=== PATIENT | female | born 1955 | race Caucasian/White ===

== ENCOUNTER → 2020-10-26 13:00 | Outpatient (REF) | payer MEDICARE, BC, SELFPAY ==
--- NOTE | 2020-10-26 13:00 | CA_ITS ---
Transthoracic Echocardiogram Patient (Last, First, Middle): Saadia Lee A Gender: Female Date of : 1955 Age: 65 Procedure Date: 10/26/2020 Procedure Type: Transthoracic Echocardiogram Location: OP Height: 157.48 cm Weight: 81.65 kg BSA: 1.83 m2 Heart Rate: bpm BP: 122 / 60 mmHg Receptionist: Referring MD: Jonathan Braun MD Symptoms: I35.0 AORTIC VALVE STENOSIS Study Quality: Fair ECG Rhythm: Sinus Conclusions: - The left ventricular systolic function is normal. The visually estimated ejection fraction is between 60-65%. - There is mild to moderate aortic valve stenosis. Findings Left Ventricle Normal left ventricular cavity size. There is mildly increased left ventricular wall thickness. The left ventricular systolic function is normal. The visually estimated ejection fraction is between 60-65%. There is no evidence of regional wall motion abnormalities. E/E prime ratio is between 8 and 15 consistent with indeterminate filling pressures. Evidence suggests grade I (mild) diastolic dysfunction. Right Ventricle Normal right ventricular cavity size and systolic function. Atria Both atria are normal in size. Aortic Valve There is mild calcification of the aortic valve. There is mild to moderate aortic valve stenosis. The peak aortic velocity is 2.66 m/s with a calculated peak gradient of 28 mmHg. The mean gradient is 17 mmHg. The aortic valve area is 1.16 cm2. There is no aortic valve regurgitation. Dimensionless index 0.47. Mitral Valve The mitral valve appears normal. There is trace mitral valve regurgitation. There is no mitral valve stenosis. Pulmonic Valve The pulmonic valve was not well visualized. Tricuspid Valve Normal tricuspid valve structure. There is trace tricuspid valve regurgitation. The pulmonary artery systolic pressure is normal. Great Vessels The aortic annulus, sinuses of valsalva, and asc aorta are normal in size. Venous The inferior vena cava is normal in size. Pericardium/Pleural There is no evidence of pericardial effusion. Prior Study Comparison No significant change compared to prior study dated: 11/13/2019. Measurements 2D Linear Measurements IVSd: 1.22 0.6-0.9/0.6-1.0 cm LVIDd: 2.93 3.9-5.3/4.2-5.9 cm LVIDd Index: 1.60 2.4-3.2/2.2-3.1 cm/m2 LVIDs: 2.07 2.0-3.6 cm LVPWd: 1.23 0.7-1.1 cm Ao Root: 2.90 2.1-3.5 cm LA Diam: 3.40 2.7-3.8/3.0-4.0 cm LAIDs Index: 1.86 1.5-2.3 cm/m2 LV Mass: 135.79 67-162/88-224 g LV Mass Index: 74.20 43-95/49-115 g/m2 LVOT Diam: 1.90 3.0+(-)1.3 cm 2D Systolic Function EF 4C: 70.90 >55% EF 2C: 70.30 >55% EF BiP: 69.50 >55% Mitral Valve MV Pk E: 0.87 MV PK A: 0.78 MV Decel Time: 225.00 E/A: 1.10 E'Lateral: 9.77 E'Medial: 6.29 E/E' Med: 13.90 E/E' Lat: 8.90 PHT: 66.00 MVA PHT: 3.33 Decel Blaine: 3.87 Aortic Valve AoV Pk Dangelo: 2.66 AoV Mn Dangelo: 1.89 AoV VTI: 0.63 AoV Pk Grad: 28.00 Aov Mn Grad: 17.00 SAHIL Cont.VTI: 1.16 LVOT LVOT Pk Dangelo: 1.24 LVOT Mn Dangelo: 0.85 LVOT VTI: 0.26 LVOT Pk Grad: 6.00 LVOT Mn Grad: 3.00 LVOT Diam: 1.90 LVOT Area: 2.84 Diastolic Function MV Pk E: 0.87 MV Pk A: 0.78 E/A: 1.10 E'Medial: 6.29 E/E' Med: 13.90 E' Laterial: 9.77 E/E' Lat: 8.90 Tricuspid Valve TR Pk Dangelo: 2.22 TR Pk Grad: 20.00 RA Press: 3.00 RVSP: 23.00 Great Vessels Aorta Ao Root-2D: 2.90 2.0-3.7 cm Pulmonary Valve PV Pk Dangelo: 1.33 Peak PV Grad: 7.00 Updated in Other Vendor System with Status of Final Rudy Griggs MD electronically signed on 10/26/2020 5:32:03 PM with status of Final
== END ==
LOC: HO.CARD 13:00
PROVIDERS: PCP Internal Medicine; Visit Provider Internal Medicine Cardiovascular Disease
DX: I35.0 Nonrheumatic aortic (valve) stenosis (principal)
CPT/HCPCS: 93306

== ENCOUNTER → 2020-11-09 14:44 | Outpatient (BNVA) | payer MEDICARE, BC, SELFPAY | PROVIDERS: PCP Internal Medicine; Visit Provider Internal Medicine Cardiovascular Disease | DX: I35.0 Nonrheumatic aortic (valve) stenosis (principal); I10 Essential (primary) hypertension | CPT/HCPCS: 93005; 99212 ==

== ENCOUNTER 2020-11-23 12:20 | Outpatient (REF) | payer MEDICARE, BC, SELFPAY ==
--- NOTE | 2020-11-23 12:25 | MM_ITS ---
EXAMINATION: MM SCREENING DIGITAL BREAST TOMOSYNTHESIS, BILATERAL CLINICAL INFORMATION: Screening. Asymptomatic. The lifetime risk of breast cancer based on the Tyrer-Cuzick Model is 10.9%. The lifetime risk of breast cancer based on the Jyoti Score Model is 19.9%. Additional annual screening with breast MRI may be of benefit in women with a Jyoti Score of 20% or greater. COMPARISON: Mammography: 11/18/2019 and studies dating back to 12/03/2009 TECHNIQUE: Digital breast tomosynthesis is performed in both the craniocaudal and mediolateral oblique views along with computer-aided detection (CAD). Synthesized 2D images are generated from the tomosynthesis. FINDINGS: There are scattered areas of fibroglandular density (ACR BI-RADS breast composition Category b). There is a stable parenchymal pattern seen within the left breast with no new abnormal dominant mass or suspicious grouping of microcalcifications. Within the superior aspect of the right breast on mediolateral oblique projection only, there is a question of developing density with a few calcifications which may represent superimposition of fibroglandular tissue. Recommend spot magnification compression view. MM/MM tomosynthesis screening BI IMPRESSION: Question of developing density superior aspect of the right breast. ASSESSMENT: BI-RADS 0: Incomplete - Need Additional Imaging Evaluation. RECOMMENDATION: 1. Additional views of the right breast. 2. Targeted ultrasound if warranted after review of the additional views. 3. Radiology department staff will contact the patient for additional imaging.
== END 2020-11-23 12:21 | disposition home or self-care (01) ==
LOC: HO.MAMMO 12:20
PROVIDERS: PCP Internal Medicine; Visit Provider Internal Medicine
DX: Z12.31 Encounter for screening mammogram for malignant neoplasm of breast (principal)
CPT/HCPCS: 77063; 77067

== ENCOUNTER 2020-12-08 07:32 | Outpatient (REF) | payer MEDICARE, BC, SELFPAY ==
--- NOTE | ~2020-12-08 | MM_ITS ---
EXAMINATION: MM DIAGNOSTIC DIGITAL MAMMOGRAPHY, RIGHT CLINICAL INFORMATION: Recall from screening for question of density upper right breast with superimposed calcifications. COMPARISON: Mammography: 11/23/2020, 11/18/2019 11/12/2018, 11/02/2017 TECHNIQUE: Digital mammography is performed in the following views: Magnification right ML. FINDINGS: There are scattered areas of fibroglandular density (ACR BI-RADS breast composition Category b). The additional view shows no developing density or mass or architectural abnormality. No grouped calcifications in area of concern. Parenchymal pattern is similar to prior exams. Results are discussed with the patient at time of visit. MM/MM added views RT IMPRESSION: Additional views demonstrate parenchymal pattern similar to prior studies. No developing density or abnormal calcifications in area of concern. ASSESSMENT: BI-RADS 1: Negative RECOMMENDATION: Routine annual mammography screening. This patient's information was entered into a reminder system with a target due date for their next mammogram.
== END 2020-12-08 07:33 | disposition home or self-care (01) ==
LOC: HO.MAMMO 07:32
PROVIDERS: PCP Internal Medicine; Visit Provider Internal Medicine
DX: R92.8 Other abnormal and inconclusive findings on diagnostic imaging of breast (principal)
CPT/HCPCS: 77065

== ENCOUNTER 2021-08-31 09:38 | Outpatient (REF) | payer MEDICARE, BC, SELFPAY ==
[2021-08-31 11:39] LABS: Appearance Urine HAZY; Color Urine DK YELLOW; Glucose Urine UA NEG (NEG); Leukocyte Esterase Urine TRACE (NEG); Nitrite Urine NEG (NEG); Specific Gravity - Urine 1.015 (1.005-1.025); Urine Blood NEG (NEG); Urine Ketones NEG (NEG); Urine Protein 1+ MG/DL (NEG-TRACE)
[2021-08-31 11:48] LABS: MANUAL DIFF FLAG NO
[2021-08-31 12:02] LABS: Basophils Absolute Auto 0.1 X10*3/uL (0.0-0.2); Eosinophils Absolute Auto 0.1 X10*3/uL (0.0-0.4); Eosinophils Percent Auto 1.8 % (0-4); Hematocrit 43.3 % (37.0-47.0); Hemoglobin 14.2 g/dl (12.0-16.0); Imm Gran Abs Auto 0.02 X10*3/uL (0.00-0.03); Imm Gran Pct Auto 0.3 % (0.0-0.4); Lymphocytes Absolute Auto 2.9 X10*3/uL (1.2-4.9); Lymphocytes Percent Auto 42.4 % (20-40); Mean Corpuscular HGB Conc 32.8 g/dl (31.0-35.0); Mean Corpuscular Hemoglobin 30.1 pg (27.0-33.0); Mean Corpuscular Volume 91.7 fL (80.0-98.0); Mean Platelet Volume 10.1 fL (9.4-12.3); Monocytes Absolute Auto 0.6 X10*3/uL (0.1-1.2); Neutrophils Absolute Auto 3.1 x10*3/uL (2.0-8.3); Neutrophils Percent Auto 45.5 % (45-73); Platelet Count 261 X10*3/uL (160-400); Red Blood Count 4.72 X10*6/uL (4.20-5.50); Red Cell Distribution Width 12.6 % (11.0-16.0); White Blood Count 6.8 X10*3/uL (4.8-10.8)
[2021-08-31 12:10] LABS: Mucus Urine 1+ /LPF; RBC Urine 0 /HPF (0); Squamous Epithelial Cell Urine 2+ /LPF
[2021-08-31 12:33] LABS: Alanine Aminotransferase 44 U/L (0-31); Albumin Level 4.3 g/dL (3.5-5.0); Alkaline Phosphatase 70 U/L (39-117); Anion Gap 14 (12-20); Aspartate Amino Transferase 43 U/L (5-31); Bilirubin Total 0.8 mg/dL (0.0-1.0); Blood Urea Nitrogen 10 mg/dL (9-16); Calcium 9.5 mg/dL (8.4-10.2); Carbon Dioxide 25 mmol/L (22-29); Chloride 106 mmol/L (96-108); Cholesterol 278 mg/dL; Estimated Glomerular Filt Rate > 60; Glucose Fasting 133 mg/dL (60-99); HDL Cholesterol 62 mg/dL; LDL Cholesterol Calculated 172 mg/dl; Potassium 4.6 mmol/L (3.3-5.1); Sodium 140 mmol/L (135-145); Triglycerides 224 mg/dL
== END 2021-08-31 09:39 | disposition home or self-care (01) ==
LOC: HO.HMGCLDS 09:38
PROVIDERS: PCP Internal Medicine; Visit Provider Internal Medicine
DX: Z00.00 Encounter for general adult medical examination without abnormal findings (principal); I35.0 Nonrheumatic aortic (valve) stenosis; Z78.0 Asymptomatic menopausal state
CPT/HCPCS: 36415; 80053; 80061; 81001; 84443; 85025

== ENCOUNTER 2021-09-15 13:08 | Outpatient (REF) | payer MEDICARE, BC, SELFPAY ==
--- NOTE | ~2021-09-15 | MM_ITS ---
EXAMINATION: BONE DENSITOMETRY CLINICAL INDICATION: Menopause. COMPARISON: Previous BD dated 08/16/2013 and baseline BD dated 06/18/2009. TECHNIQUE: Using a [employer] DXA System (software version: 13.1) manufactured by [employer], dual-energy x-ray absorptiometry was performed of the lumbar spine and left hip. The images are of good technical quality. Summary results are attached. FINDINGS: AP SPINE L1-L4: Current: BMD 1.128 g/cm2, Z-score 0.7, T-score -0.4, normal, 0.8% decrease from previous, 6.1% decrease from baseline (<5% change is not significant). Prior: BMD 1.137 g/cm2. Baseline: BMD 1.201 g/cm2. LEFT FEMUR, NECK: Current: BMD 0.844 g/cm2, Z-score -0.1, T-score -1.4, osteopenia. Prior: BMD 0.915 g/cm2. Baseline: BMD 0.970 g/cm2. LEFT FEMUR, TOTAL: Current: BMD 0.917 g/cm2, Z-score 0.3, T-score -0.7, normal, 7.5% decrease from previous, 12.0% decrease from baseline (<5% change is not significant). Prior: BMD 0.991 g/cm2. Baseline: BMD 1.042 g/cm2. IDENTIFIED RISK FACTORS: Menopause, Thiazide. HISTORY OF FRACTURE: None listed. MEDICATIONS: Calcium, vitamin D. MM/XR DEXA axial skeleton IMPRESSION: 1. DIAGNOSIS: Osteopenia based on the lowest T-score value of -1.4 in the femoral neck applying World Health Organization criteria. 2. 10-YEAR FRACTURE RISK PREDICTION, FRAX: Major osteoporotic fracture (clinical spine, forearm, hip or shoulder) 8.9%. Hip fracture 1.0%. 3. Treatment Recommendations: NOF guidelines recommend consideration for treatment in postmenopausal women and men age 50 and older presenting with the following: -A hip or vertebral (clinical or morphometric) fracture. -T-score less than or equal to -2.5 at the femoral neck or spine after appropriate evaluation to exclude secondary causes. -Low bone mass at the hip or spine and a 10-year fracture probability by FRAX of greater than or equal to 3% for hip fracture or greater than or equal to 20% for major osteoporotic fracture based on the [place] adapted WHO algorithm. 4. Other Recommendations: All treatment decisions require clinical judgment and consideration of individual patient factors, including patient preferences, comorbidities, previous drug use, risk factors not captured in the FRAX model (e.g. frailty, falls, vitamin D deficiency, increased bone turnover, interval significant decline in bone density) and possible under or overestimation of fracture risk by FRAX. Additional medical evaluation for secondary cause of low bone mineral density may be appropriate. FUTURE SCAN RECOMMENDATION: People with diagnosed cases of osteoporosis or at high risk for fracture should have regular bone mineral density tests. For patients eligible for Medicare, routine testing is allowed once every 2 years. The testing frequency can be increased to one year for patients who have rapidly progressing disease, those who are receiving or discontinuing medical therapy to restore bone mass, or have additional risk factors.
== END 2021-09-15 13:09 | disposition home or self-care (01) ==
LOC: HO.MAMMO 13:08
PROVIDERS: PCP Internal Medicine; Visit Provider Internal Medicine
DX: Z13.820 Encounter for screening for osteoporosis (principal); M85.80 Other specified disorders of bone density and structure, unspecified site; Z78.0 Asymptomatic menopausal state; Z79.899 Other long term (current) drug therapy
CPT/HCPCS: 77080

== ENCOUNTER → 2021-11-29 14:12 | Outpatient (BNVA) | payer MEDICARE, BC, SELFPAY | PROVIDERS: PCP Internal Medicine; Referring Provider Internal Medicine; Visit Provider Internal Medicine Cardiovascular Disease | DX: I35.0 Nonrheumatic aortic (valve) stenosis (principal); I10 Essential (primary) hypertension | CPT/HCPCS: 93005; 99212 ==

== ENCOUNTER 2021-12-09 12:50 | Outpatient (REF) | payer MEDICARE, BC, SELFPAY ==
--- NOTE | ~2021-12-09 | MM_ITS ---
EXAMINATION: MM SCREENING DIGITAL BREAST TOMOSYNTHESIS, BILATERAL CLINICAL INFORMATION: Screening. Asymptomatic. Family history breast cancer. The lifetime risk of breast cancer based on the Tyrer-Cuzick Model is 8%. COMPARISON: Mammography: 12/08/2020, 11/23/2020, 11/18/2019, 11/12/2018 TECHNIQUE: Digital breast tomosynthesis is performed in both the craniocaudal and mediolateral oblique views along with computer-aided detection (CAD). Synthesized 2D images are generated from the tomosynthesis. FINDINGS: There are scattered areas of fibroglandular density (ACR BI-RADS breast composition Category b). There is a fibronodular parenchymal pattern similar to prior studies. There is no significant mass or architectural abnormality or developing density. Again, there are scattered bilateral vascular and benign round calcifications in each breast. The bilateral axilla and skin contours are unremarkable. The left breast has punctate tightly grouped calcifications posterior 1:00 position which may be early vascular along with superimposed digital processing artifact. Patient will be recalled for additional imaging with magnification views. MM/MM tomosynthesis screening BI IMPRESSION: 1. Left: Tightly grouped punctate calcifications posterior 1:00 position, possibly early vascular along with superimposed digital processing artifact. 2. Right: No mammographic evidence of malignancy. ASSESSMENT: BI-RADS 0: Incomplete - Need Additional Imaging Evaluation RECOMMENDATION: 1. Additional views of the left breast (magnification CC, magnification ML). 2. Radiology department staff will contact the patient for additional imaging. This patient's information was entered into a reminder system with a target due date for their next mammogram.
== END 2021-12-09 12:51 | disposition home or self-care (01) ==
LOC: HO.MAMMO 12:50
PROVIDERS: PCP Internal Medicine; Visit Provider Internal Medicine
DX: Z12.31 Encounter for screening mammogram for malignant neoplasm of breast (principal)
CPT/HCPCS: 77063; 77067

== ENCOUNTER 2022-02-08 14:45 | Outpatient (REF) | payer MEDICARE, BC, SELFPAY ==
--- NOTE | ~2022-02-08 | MM_ITS ---
EXAMINATION: MM DIAGNOSTIC DIGITAL MAMMOGRAPHY, LEFT CLINICAL INFORMATION: Recall from screening for tightly grouped punctate calcifications posterior 1:00 left breast. Family history breast cancer, mother and sister(s). COMPARISON: Mammography: 12/09/2021, 11/23/2020, 11/18/2019 TECHNIQUE: Digital mammography is performed in the following views: Magnification CC, magnification ML. FINDINGS: There are scattered areas of fibroglandular density (ACR BI-RADS breast composition Category b). The magnification views confirm tightly grouped punctate calcifications in area of recall, over 10 in number. The calcifications vary in size and slightly vary in attenuation. This represents change from prior exams. Stereotactic sampling is recommended. Results are discussed with the patient at time of visit. [facility]igator to call PCP. MM/MM added views LT IMPRESSION: Grouped punctate calcifications posterior 1:00 position which vary in size and attenuation. ASSESSMENT: BI-RADS 4: Suspicious RECOMMENDATION: Stereotactic sampling left breast calcifications. This patient's information was entered into a reminder system with a target due date for their next mammogram.
== END 2022-02-08 14:46 | disposition home or self-care (01) ==
LOC: HO.MAMMO 14:45
PROVIDERS: Visit Provider Internal Medicine
DX: R92.1 Mammographic calcification found on diagnostic imaging of breast (principal)
CPT/HCPCS: 77065

== ENCOUNTER → 2022-02-10 13:05 | Outpatient (BNVA) | payer MEDICARE, BC, SELFPAY | PROVIDERS: PCP Internal Medicine; Referring Provider Internal Medicine; Visit Provider Surgery | DX: R92.8 Other abnormal and inconclusive findings on diagnostic imaging of breast (principal) | CPT/HCPCS: 99202 ==

== ENCOUNTER 2022-02-11 07:58 | Outpatient (REF) | payer MEDICARE, BC, SELFPAY ==
--- NOTE | ~2022-02-11 | MM_ITS ---
EXAMINATION: STEREOTACTIC TOMOSYNTHESIS-GUIDED VACUUM-ASSISTED BREAST BIOPSY, LEFT SPECIMEN RADIOGRAPH, LEFT POST PROCEDURE DIGITAL MAMMOGRAM, LEFT CLINICAL INFORMATION: Indeterminate calcifications about the upper outer aspect of the left breast.. COMPARISON: February 08, 2022 and studies dating back to October 18, 2016. TECHNIQUE/PROCEDURE: Informed consent was obtained from the patient after discussion of the benefits, risks, and alternatives to biopsy today. Patient appeared to understand. Gave opportunity for questions. Patient signed consent form. BIOPSY TABLE: [employer] Affirm Prone Biopsy System. LESION: Calcifications. LOCAL ANESTHESIA: 9 mL 1% lidocaine; 20 mL 1% lidocaine with epinephrine. DERMATOTOMY: Single skin mikala dermatotomy performed. NEEDLE: COADE Eviva 9-gauge vacuum assisted core biopsy device. APPROACH: craniocaudal. TARGETING: Combination of digital breast tomosynthesis and stereotactic digital mammography used for targeting. CORES: 20. CLIP: Hourglass. SPECIMEN RADIOGRAPH: Specimen radiograph is taken in separate room using digital mammography. The index calcifications are in the excised cores. POST PROCEDURE UNILATERAL DIGITAL MAMMOGRAM: The post biopsy mammogram is performed in separate room using separate digital mammography equipment from the biopsy procedure. 2 views are obtained. There are scattered areas of fibroglandular density (breast composition category: b). The clip marker is in position. The calcifications are markedly decreased at the biopsy site. No gross hematoma. The patient tolerated the procedure well. No immediate complications. Home instructions reviewed with the patient. Final pathology results are pending. MM/MM stereotactic biopsy LT IMPRESSION: 1. Digital tomosynthesis-guided core biopsy left breast with clip placement. 2. Specimen radiograph taken and post procedure mammogram. There is satisfactory positioning of the biopsy clip. 3. Final pathology results pending. An addendum report will be issued.
[2022-02-11] MEDS: Lidocaine HCl 1 % 20 ML VIAL 9 ML SUBCUT (09:39)
[2022-02-11] MEDS: Sodium Bicarbonate 8.4% 50 MEQ/50 ML VIAL SUBCUT (09:43)
== END 2022-02-11 07:59 | disposition home or self-care (01) ==
LOC: HO.MAMMO 07:58
PROVIDERS: Visit Provider Surgery
DX: R92.8 Other abnormal and inconclusive findings on diagnostic imaging of breast (principal)
CPT/HCPCS: 19081; 88305; A4648

== ENCOUNTER → 2022-02-15 11:09 | Outpatient (BNVA) | payer MEDICARE, BC, SELFPAY | PROVIDERS: PCP Internal Medicine; Referring Provider Internal Medicine; Visit Provider Surgery | DX: N60.92 Unspecified benign mammary dysplasia of left breast (principal); Z98.890 Other specified postprocedural states | CPT/HCPCS: 99212 ==

== ENCOUNTER 2022-03-02 06:48 | Day surgery (SDC) | payer MEDICARE, BC, SELFPAY ==
[2022-02-24 16:05] VITALS: BMI 32.1
--- NOTE | 2022-03-01 11:01 | HO.ANESPROP2 ---
Documented by User: Radha Butt NP 03/01/22 11:05 HPI - Anesthesia Eval Consult details Narrative: 66yo F for Left Breast Lumpectomy/Needle Loc Routine cardiology visit 11/2021 - pt active without symptoms of or PFO, stable for yearly f/u PMFSH Active Problems Active Problems: All Active Problems (Updated 02/24/22 @ 16:03 by Marsha Michaud, RN) Aortic stenosis (Acute) Hypertension (Acute) Abnormal mammogram of left breast (Acute) Atypical lobular hyperplasia of left breast (Acute) Hyperglycemia (Acute) Hyperlipidemia (Acute) Chronic back pain (Acute) Postmenopausal (Acute) Annual physical exam (Acute) Past Medical History Medical History Annual physical exam Aortic stenosis Chronic back pain Hyperglycemia Hyperlipidemia Hypertension Murmur Postmenopausal Situational anxiety Family History Family History Mother CVD (cardiovascular disease) Breast cancer, Onset Age: 60 Father Parkinson disease Brother Prostate cancer Sister Breast cancer, Onset Age: 50 Surgical History Surgical History H/O colonoscopy History of back surgery Hx of repair of rotator cuff Hx of tonsillectomy Social History Social History Are you a primary director of critical care to a significant other at home: No Do you presently have visiting nurse or other home services: No Alcohol intake: never Patient Tobacco Use Status: Never used Tobacco Use of substances other than those prescribed or required for medical reasons: No Have you been hit, kicked, punched, or otherwise hurt by someone within the past year? If so, by whom?: No Are you DNR?: No Advance Directives: No Advance Directives Information Provided: Yes Advance Directives on File: No Recently lost weight without trying: No Meds Allergies Allergy/AdvReac Type Severity Reaction Status Date / Time adhesive tape Allergy Intermediate Rash Verified 02/24/22 16:05 paper tape Allergy Intermediate Blister Uncoded 02/24/22 16:05 Home Medications Medication Instructions Recorded Confirmed Last Taken Type aspirin 81 mg tablet,delayed 81 mg PO DAILY 11/09/20 03/02/22 02/23/22 History release (Adult Low Dose Aspirin) multivitamin 1 tab PO DAILY 11/09/20 02/24/22 Unknown History Exam Exam Date and Time: March 01, 2022 1101 Height,Weight and Vital Signs: Height 5 ft 2 in Weight 79.832 kg Pertinent Lab Results Pertinent Lab Results: Laboratory Tests 08/31/21 08/31/21 09:57 09:57 WBC 6.8 Hgb 14.2 Hct 43.3 Plt Count 261 Sodium 140 Potassium 4.6 Chloride 106 Carbon Dioxide 25 BUN 10 Creatinine 0.72 Narrative Narrative: EKG 11/2021 NSR, normal EKG, QTc 429 msec ECHO 08/2021 Conclusions: - The left ventricular systolic function is normal.? The visually estimated ejection fraction is between 60-65%. ? - There is mild to moderate aortic valve stenosis. ?? Assessment and Plan Assessment Anesthesia Assessment: Chart Reviewed Documented by User: Adelaide Manzo MD 03/02/22 10:38 [facility] Active Problems Active Problems: All Active Problems (Updated 02/24/22 @ 16:03 by Marsha Michaud, KAT) Aortic stenosis (Acute)- asymptomatic Hypertension (Acute) Abnormal mammogram of left breast (Acute) Atypical lobular hyperplasia of left breast (Acute) Hyperglycemia (Acute) Hyperlipidemia (Acute) Chronic back pain (Acute) Postmenopausal (Acute) Annual physical exam (Acute) Past Medical History Medical History Annual physical exam Aortic stenosis Chronic back pain Hyperglycemia Hyperlipidemia Hypertension Murmur Postmenopausal Situational anxiety Family History Family History Mother CVD (cardiovascular disease) Breast cancer, Onset Age: 60 Father Parkinson disease Brother Prostate cancer Sister Breast cancer, Onset Age: 50 Family history of problems with anesthesia: No Surgical History Surgical History H/O colonoscopy History of back surgery Hx of repair of rotator cuff Hx of tonsillectomy History of Problems with Anesthesia: No Social History Social History Are you a primary director of critical care to a significant other at home: No Do you presently have visiting nurse or other home services: No Alcohol intake: never Patient Tobacco Use Status: Never used Tobacco Use of substances other than those prescribed or required for medical reasons: No Have you been hit, kicked, punched, or otherwise hurt by someone within the past year? If so, by whom?: No Are you DNR?: No Advance Directives: No Advance Directives Information Provided: Yes Advance Directives on File: No Recently lost weight without trying: No Meds Allergies Allergy/AdvReac Type Severity Reaction Status Date / Time adhesive tape Allergy Intermediate Rash Verified 02/24/22 16:05 paper tape Allergy Intermediate Blister Uncoded 02/24/22 16:05 Home Medications Medication Instructions Recorded Confirmed Last Taken Type aspirin 81 mg tablet,delayed 81 mg PO DAILY 11/09/20 03/02/22 02/23/22 History release (Adult Low Dose Aspirin) multivitamin 1 tab PO DAILY 11/09/20 02/24/22 Unknown History Exam Height,Weight and Vital Signs: Height 5 ft 2 in Weight 79.832 kg Vital Signs Temp Pulse Resp BP Pulse Ox 03/02/22 07:40 98.3 F 63 18 176/74 H 98 Airway Mallampati Class: III TM Dist: >3cm Neck ROM: Full Denture: Upper Partial: Lower Heart: RRR + systolic murmur Lungs: CTAB Assessment and Plan Assessment Anesthesia Assessment: Anesthesia Plan Discussed Final Anesthetic Review Family History of Problems with Anesthesia: No History of Problems with Anesthesia: No NPO: Yes ASA Class: III Final Preanesthetic Review: No Changes in Pt Med Stat, Meds/Allgs Chart Reviewed, Consent Obtained/Reviewed and Anes Risks/Benef Reviewed Patient Risk: Intermediate Procedure Risk: Low Assessment/Block/Sedation in SS: Assess/Block/Sedation-SS Anesthetic Plan Anesthetic Plan: GA Disposition: Standard PACU
[2022-03-02] VITALS (11 sets, daily range): BP systolic 145–176; BP diastolic 60–80; PULSE 57–78; RESP 12–20; TEMP 36.2–36.8; O2SAT 97–100; BMI 32.1
--- NOTE | ~2022-03-02 | MM_ITS ---
EXAMINATION: MM MAMMOGRAM GUIDED NEEDLE LOCALIZATION BREAST, LEFT MM NEEDLE LOCALIZATION SPECIMEN FROM THE LEFT BREAST CLINICAL INFORMATION: Recent stereotactic biopsy for calcifications posterior upper left breast, atypical lobular hyperplasia. COMPARISON: Mammography 12/09/2021, 02/08/2022, 02/11/2022, stereotactic biopsy 02/11/2022. TECHNIQUE NEEDLE LOC: Proper informed consent is obtained from the patient after discussion of the procedure, potential risks and complications, and alternatives including declining the procedure today. Patient was given an opportunity for questions. The patient appeared to understand. The patient consented to the procedure and signed the consent form. GUIDANCE: Digital mammography. APPROACH: Cranio-caudal. TARGET: Biopsy cavity and biopsy clip marker posterior upper left breast. ANESTHESIA: Carbonated lidocaine 1%: 6 mL. LOCALIZATION MARKER: [place] [employer]. 7.5 cm. The skin is prepped and local anesthesia administered. The needle is positioned and position assessed with mammography. The wire is hooked into position. Wellington needle protector placed. The patient tolerated the procedure well and had no immediate complication. Procedure results discussed with Dr. Rubin prior to surgery. TECHNIQUE SPECIMEN RADIOGRAPH: Imaging of the excised specimen is performed using digital mammography in 1 view. FINDINGS SPECIMEN RADIOGRAPH: The specimen shows the distal needle and distal hookwire are delivered intact. The biopsy clip marker is identified in the specimen. Results were called to Dr. Dimas Rubin in the operating room at the time of imaging. MM/MM needle loc LT IMPRESSION: 1. Status post left breast needle localization with wire hooked into position. 2. Post operative specimen radiograph obtained.
--- NOTE | 2022-03-02 08:02 | PC.NURSE ---
to xray for needle loc
[2022-03-02] MEDS: Lactated Ringers 1,000 ML 100 ML IVCONT (08:07)
--- NOTE | 2022-03-02 08:33 | MHC.SHP ---
Pre-Procedural Eval Section A Date of Service: 03/02/22 The patient is an INPATIENT: No Changes since office visit: Yes Patient answered all questions; No Cold of Flu in the past 2 weeks, No New Medical Problems and No Changes in Medication The History & Physical has been completed within 30 days and I have reviewed it.: Yes Section B Chief Complaint: dysplasia left breast Allergies: Allergies Allergy/AdvReac Type Severity Reaction Status Date / Time adhesive tape Allergy Intermediate Rash Verified 02/24/22 16:05 paper tape Allergy Intermediate Blister Uncoded 02/24/22 16:05 Plan Diagnosis/Plan: Unchanged I have reviewed the history and physical and performed a pertinent physical examination on my patient. No changes have occurred unless specified.
[2022-03-02] MEDS: Lidocaine HCl 1 % 20 ML VIAL 8 ML SUBCUT (08:44)
[2022-03-02] MEDS: Sodium Bicarbonate 8.4% 50 MEQ/50 ML VIAL SUBCUT (08:45)
--- NOTE | 2022-03-02 10:28 | W.PM.OPN ---
Operative Note Operative Note Date of Service: 03/02/22 Narrative: Preoperative diagnosis: Atypical lobular hyperplasia left breast Postoperative diagnosis: Same Procedure: Left breast lumpectomy with needle localization Surgeon: Dimas Rubin MD Front Office Agent: Elana Estrada PA-C Anesthesia: General LMA Indications for procedure: 66-year-old female patient presenting with a recent area of calcification in the left breast at the upper outer quadrant status post radiologically guided core biopsy. Pathology revealed atypical lobular hyperplasia. She presents today for wider excision to assure complete removal. Operative findings: Localizing clip and wire found within the specimen. Gross pathology indicated a biopsy cavity within the specimen. Specimen: Left breast lumpectomy Estimated blood loss: 10 mL Complications: None Procedure details: Patient was brought to the OR placed in a supine position. After administering general anesthesia the patient's left breast was prepped with ChloraPrep and draped in a sterile fashion. A surgical time-out was called the consent confirmed. Patient received preoperative antibiotics and Venodyne boots were in place. Local anesthesia consisting of 0.25% Sensorcaine was infiltrated in the upper outer quadrant close to the tip of the needle. A incision was then created in a transverse fashion then carried down through subcutaneous tissue. Superior and inferior skin flaps were then created. Incision was continued down towards the tip of the needle. This was grasped with an Allis clamp and dissection continued both superiorly and inferiorly to the needle. She noted the needle was oriented from a medial to lateral anterior to posterior. As the tip of the needle was close to the axilla. Dissection was continued around the needle tip and posterior to the needle tip. Dissection was also continued below the skin to the more proximal portion of the needle. Needle was then cut with a wireless development manager and dissected up posterior to the needle. The specimen was then marked with a yes long suture at the lateral margin short suture in a superior margin and loop suture at the posterior margin. This was sent to Radiology for radiologic specimen x-ray. This confirmed the clip within the specimen. The pathologist then reviewed the specimen and confirmed a biopsy cavity within the specimen. After assuring adequate hemostasis with electrocautery and free ties of 3-0 Polysorb, the deep breast tissue was reapproximated using interrupted 3-0 Polysorb sutures. Superficial breast tissue and dermis were then reapproximated using interrupted 3-0 Polysorb sutures. Skin was closed using a running subcuticular 4-0 Polysorb suture. Steri-Strips, 2 x 2 gauze and Tegaderm were then applied. The patient tolerated the procedure well. Sponge, instrument, needle counts reported as correct. The patient was transferred to PACU in stable condition. The
[2022-03-02] MEDS: Acetaminophen 325 MG TABLET 650 MG PO (10:54)
[2022-03-02] MEDS: oxyCODONE HCl Immed Release 5 MG TABLET PO (10:55)
[2022-03-02] MEDS: fentaNYL citrate/PF 100 MCG/2 ML VIAL 25 MCG IVPUSH ×2 (10:55→11:01)
== END 2022-03-02 11:48 | disposition home or self-care (01) ==
PROVIDERS: PCP Internal Medicine; Visit Provider Surgery
PROC: (CPT 19301; principal; 2022-03-02 08:40)
DX: N60.92 Unspecified benign mammary dysplasia of left breast (principal); Z80.3 Family history of malignant neoplasm of breast; E78.00 Pure hypercholesterolemia, unspecified; E78.5 Hyperlipidemia, unspecified; R73.9 Hyperglycemia, unspecified; Z79.82 Long term (current) use of aspirin; Z79.899 Other long term (current) drug therapy; Z98.890 Other specified postprocedural states
CPT/HCPCS: 19301; 19281; 88307; 88329; 88342; A4648; J0690; J1100; J2250; J2370; J2405; J3010

== ENCOUNTER → 2022-03-10 09:43 | Outpatient (BNVA) | payer MEDICARE, BC, SELFPAY | PROVIDERS: PCP Internal Medicine; Referring Provider Internal Medicine; Visit Provider Surgery | DX: N60.92 Unspecified benign mammary dysplasia of left breast (principal) | CPT/HCPCS: 99212 ==

== ENCOUNTER → 2022-03-18 08:56 | Outpatient (BNVA) | payer MEDICARE, BC, SELFPAY | PROVIDERS: PCP Internal Medicine; Referring Provider Internal Medicine; Visit Provider Surgery | DX: Z48.3 Aftercare following surgery for neoplasm (principal); N60.92 Unspecified benign mammary dysplasia of left breast | CPT/HCPCS: 99212 ==

== ENCOUNTER → 2022-03-18 10:45 | Outpatient (BNV) | payer MEDICARE, BC, SELFPAY | PROVIDERS: PCP Internal Medicine; Referring Provider Surgery; Visit Provider Internal Medicine Medical Oncology | DX: N60.92 Unspecified benign mammary dysplasia of left breast (principal); M85.80 Other specified disorders of bone density and structure, unspecified site | CPT/HCPCS: 99204; 99213; 99214 ==

== ENCOUNTER → 2022-03-24 14:36 | Outpatient (BNVA) | payer MEDICARE, BC, SELFPAY | PROVIDERS: PCP Internal Medicine; Referring Provider Internal Medicine; Visit Provider Surgery | DX: Z48.89 Encounter for other specified surgical aftercare (principal); N60.92 Unspecified benign mammary dysplasia of left breast | CPT/HCPCS: 99212 ==

== ENCOUNTER 2022-03-28 09:39 | Day surgery (SDC) | payer MEDICARE, BC, SELFPAY ==
[2022-03-22 12:15] VITALS: BMI 32.1
--- NOTE | 2022-03-24 13:56 | P.CONAN_ITS ---
Documented by User: Radha Butt NP 03/24/22 13:58 HPI - Anesthesia Eval Consult details Narrative: 67yo F for Colonoscopy s/p breast lumpectomy 03/02/22 with GA-LMA 4 Routine cardiology visit 11/2021 - pt active without symptoms of or PFO, stable for yearly f/u [facility] Active Problems Active Problems: All Active Problems (Updated 03/18/22 @ 11:04 by Halley Brandt MD) Atypical ductal hyperplasia of left breast (Acute) Atypical lobular hyperplasia of left breast (Acute) Hyperglycemia (Acute) Hyperlipidemia (Acute) Chronic back pain (Acute) Postmenopausal (Acute) Annual physical exam (Acute) Past Medical History Medical History Annual physical exam Aortic stenosis Chronic back pain Hyperglycemia Hyperlipidemia Hypertension Murmur Postmenopausal Situational anxiety Family History Family History Mother CVD (cardiovascular disease) Breast cancer, Onset Age: 60 Father Parkinson disease Brother Prostate cancer Sister Breast cancer, Onset Age: 50 Family history of problems with anesthesia: No Surgical History Surgical History H/O colonoscopy History of back surgery Hx of repair of rotator cuff Hx of tonsillectomy S/P lumpectomy, left breast (03/02/22) History of Problems with Anesthesia: No Social History Social History Household Members: Spouse Housing: House Are you a primary care management associate to a significant other at home: No Do you presently have visiting nurse or other home services: No Alcohol intake: never Patient Tobacco Use Status: Never used Tobacco Are you DNR?: No Advance Directives: No Advance Directives Information Provided: Yes service: No Current occupational status: retired Meds Allergies Allergy/AdvReac Type Severity Reaction Status Date / Time adhesive tape Allergy Intermediate Rash Verified 03/24/22 15:07 paper tape Allergy Intermediate Blister Uncoded 03/24/22 15:07 Home Medications Medication Instructions Recorded Confirmed Last Taken Type aspirin 81 mg tablet,delayed 81 mg PO DAILY 11/09/20 03/25/22 02/23/22 History release (Adult Low Dose Aspirin) multivitamin 1 tab PO DAILY 11/09/20 03/25/22 Unknown History Exam Exam Date and Time: March 24, 2022 1356 Height,Weight and Vital Signs: Height 5 ft 2 in Weight 79.832 kg Pertinent Lab Results Pertinent Lab Results: Laboratory Tests 03/18/22 12:30 WBC 7.7 Hgb 14.0 Hct 42.3 Plt Count 262 Sodium 03/18/22 12:30 WBC Hgb Hct Plt Count Sodium 138 Potassium 4.6 Chloride 106 Carbon Dioxide 26 BUN 12 Creatinine 0.72 Assessment and Plan Assessment Anesthesia Assessment: Chart Reviewed Final Anesthetic Review Family History of Problems with Anesthesia: No History of Problems with Anesthesia: No Documented by User: Adelaide Manzo MD 03/28/22 12:22 [facility] Active Problems Active Problems: All Active Problems (Updated 03/18/22 @ 11:04 by Halley Brandt MD) Atypical ductal hyperplasia of left breast (Acute) Atypical lobular hyperplasia of left breast (Acute) Hyperglycemia (Acute). Not diagnosed with DM. No meds Hyperlipidemia (Acute) Chronic back pain (Acute) Postmenopausal (Acute) Annual physical exam (Acute) Patient on atenolol- cardiology note states for Hypertension. Patient not aware that she has hypertension(though BP high today). Thinks she has been on atenolol for h/o heart murmur Asymptomatic aortic stenosis, PFO. oicked up secodary heart murmur Past Medical History Medical History Annual physical exam Aortic stenosis Chronic back pain Hyperglycemia Hyperlipidemia Hypertension Murmur Postmenopausal Situational anxiety Family History Family History Mother CVD (cardiovascular disease) Breast cancer, Onset Age: 60 Father Parkinson disease Brother Prostate cancer Sister Breast cancer, Onset Age: 50 Surgical History Surgical History H/O colonoscopy History of back surgery Hx of repair of rotator cuff Hx of tonsillectomy S/P lumpectomy, left breast (03/02/22) Social History Social History Household Members: Spouse Housing: House Are you a primary care management associate to a significant other at home: No Do you presently have visiting nurse or other home services: No Alcohol intake: never Patient Tobacco Use Status: Never used Tobacco Are you DNR?: No Advance Directives: No Advance Directives Information Provided: Yes service: No Current occupational status: retired Meds Allergies Allergy/AdvReac Type Severity Reaction Status Date / Time adhesive tape Allergy Intermediate Rash Verified 03/24/22 15:07 paper tape Allergy Intermediate Blister Uncoded 03/24/22 15:07 Home Medications Medication Instructions Recorded Confirmed Last Taken Type aspirin 81 mg tablet,delayed 81 mg PO DAILY 11/09/20 03/25/22 02/23/22 History release (Adult Low Dose Aspirin) multivitamin 1 tab PO DAILY 11/09/20 03/25/22 Unknown History Exam Height,Weight and Vital Signs: Height 5 ft 2 in Weight 79.832 kg Vital Signs Temp Pulse Resp BP Pulse Ox 03/28/22 10:49 98.9 F 76 16 169/80 H 99 Airway Mallampati Class: III TM Dist: >3cm Neck ROM: Full Denture: Upper Loose/Missing/Broken Teeth: No (No missing or loose bottom) Heart: RRR Lungs: CTAB Assessment and Plan Assessment Anesthesia Assessment: Anesthesia Plan Discussed Final Anesthetic Review NPO: Yes ASA Class: II Final Preanesthetic Review: No Changes in Pt Med Stat, Meds/Allgs Chart Reviewed, Consent Obtained/Reviewed and Anes Risks/Benef Reviewed Patient Risk: Intermediate Procedure Risk: Low Assessment/Block/Sedation in SS: Assess/Block/Sedation-SS Anesthetic Plan Anesthetic Plan: MAC: Disposition: Standard PACU
[2022-03-28 10:49] VITALS: BP 169/80; PULSE 76; RESP 16; TEMP 37.2; O2SAT 99; BMI 32.1
[2022-03-28] MEDS: Lactated Ringers 1,000 ML 100 ML IVCONT (11:07)
[2022-03-28 12:46] VITALS: BP 137/75; PULSE 87; RESP 16; TEMP 37; O2SAT 100
--- NOTE | 2022-03-28 12:52 | PM.OP ---
Brief Operative Note Date of Service: 03/28/22 Pre-op diagnosis: Screening Post-op diagnosis: other (Colon polyp) Procedure: Colonoscopy to the cecum with hot snare polypectomy Surgeon: Yoseph Mendoza Anesthesia: MAC Was an Research Software Engineer used for this Procedure?: No Estimated blood loss (mL): 0 Pathology: other (A. Rectal polyp) Condition: stable Disposition: PACU
[2022-03-28 13:00] VITALS: BP 143/67; PULSE 70; RESP 14; TEMP 37.2; O2SAT 99
--- NOTE | 2022-03-28 23:22 | OP_ITS ---
SURGEON: Yoseph Mendoza MD INDICATIONS: The patient presents for evaluation of personal history of tubular adenoma of the colon and colorectal cancer screening. Full consent was obtained from her for this, including risks of bleeding and perforation. PREOPERATIVE DIAGNOSIS: POSTOPERATIVE DIAGNOSIS: PROCEDURE PERFORMED: Colonoscopy to the cecum with hot snare polypectomy. ESTIMATED BLOOD LOSS: COMPLICATIONS: ANESTHESIA: Monitored anesthesia care. ASSISTANTS: SPECIMENS: PREOPERATIVE DIAGNOSES: Colorectal cancer screening, family history of colon cancer, and personal history of tubular adenoma of the colon. POSTOPERATIVE DIAGNOSES: Colorectal cancer screening, family history of colon cancer, and personal history of tubular adenoma of the colon, colon polyp, diverticulosis and internal hemorrhoids. DESCRIPTION OF PROCEDURE: The patient was placed in the left lateral decubitus position. The digital rectal exam revealed no abnormalities. The Olympus video pediatric colonoscope was entered into the rectum and advanced to the cecum. Once in the cecum, I did identify normal-appearing cecal pouch with appendiceal orifice and a normal-appearing ileocecal valve. The entire cecum and ileocecal valve appeared normal. The scope was then slowly withdrawn assessing all mucosal surfaces carefully. Preparation was excellent. In the proximal rectum was approximately 12 mm polyp on a short stalk, which was snared and recovered by suction. The polypectomy site appeared clean, without any sign of residual polyp nor bleeding. I did not visualize any other polyps, colitis, nor angiodysplasia. There was a moderate amount of sigmoid diverticulosis. In the rectum, scope was retroflexed visualizing internal hemorrhoids, but no other pathology. The rectal mucosa appeared normal. The scope was straightened and withdrawn from the patient. She tolerated the procedure well and was returned to the recovery area in stable condition. IMPRESSION: 1. Rectal polyp, status post hot snare polypectomy. 2. Diverticulosis. 3. Internal hemorrhoids. PLAN: The results of the pathology will be checked. Given her family history of a sibling with colon cancer, her previous history of tubular adenoma, and today's findings, I would recommend a repeat colonoscopy in 5 years for further screening purposes. She was advised not to use any aspirin, NSAIDs, nor fish oil for 1 week. MD SUZAN HarrisW/JETL / [id number]
== END 2022-03-28 13:45 | disposition home or self-care (01) ==
PROVIDERS: PCP Internal Medicine; Visit Provider Internal Medicine
PROC: 0DJD8ZZ Inspection of Lower Intestinal Tract, Via Natural or Artificial Opening Endoscopic (ICD-10-PCS; CPT 45378; principal; 2022-03-28 10:50)
DX: Z12.11 Encounter for screening for malignant neoplasm of colon (principal); Z86.010 Personal history of colon polyps; Z80.0 Family history of malignant neoplasm of digestive organs; D12.8 Benign neoplasm of rectum; K57.30 Diverticulosis of large intestine without perforation or abscess without bleeding; K64.8 Other hemorrhoids; R01.1 Cardiac murmur, unspecified; Z79.82 Long term (current) use of aspirin; Z79.899 Other long term (current) drug therapy
CPT/HCPCS: 45385; 88305

== ENCOUNTER 2022-05-24 14:18 | Outpatient (REF) | payer MEDICARE, BC, SELFPAY ==
--- NOTE | ~2022-05-24 | US_ITS ---
EXAMINATION: US ABDOMEN COMPLETE CLINICAL INFORMATION: History of MUTYH mutation, breast cancer. COMPARISON: Ultrasound abdomen complete 07/11/2016. TECHNIQUE: Real-time imaging of the abdominal viscera. FINDINGS: PANCREAS: Normal. No abnormal mass or peripancreatic inflammatory changes seen. ABDOMINAL AORTA: The proximal, mid, and distal segments are normal in caliber. INFERIOR VENA CAVA: Visualized portions are normal. LIVER: The liver is normal in size. The liver contour is normal. There is diffusely increased echogenicity present consistent with fatty infiltration. There is no intrahepatic biliary duct dilatation seen. GALLBLADDER: Normal. The gallbladder is physiologically distended without evidence of stones, sludge, polyps, wall thickening or pericholecystic fluid. COMMON BILE DUCT: Normal in caliber measuring 0.4 cm in diameter. RIGHT KIDNEY: There is fullness of the upper collecting system with the appearance of mild hydronephrosis. No renal calculi or focal parenchymal lesions. The kidney measures 9.7 cm in maximum dimension. LEFT KIDNEY: There is minimal fullness of the upper collecting system. Within the lower pole there is noted to be a 4 mm nonobstructing calculus. No focal parenchymal lesions. The kidney measures 10.3 cm in maximum dimension. SPLEEN: Normal. The spleen measures 9.7 cm in maximum dimension. FREE FLUID: None. US/US abdomen complete IMPRESSION: Mild right hydronephrosis. Left renal nonobstructing calculus. Fatty infiltration of the liver.
== END 2022-05-24 14:19 | disposition home or self-care (01) ==
LOC: HO.HMGCX 14:18
PROVIDERS: PCP Internal Medicine; Visit Provider Internal Medicine Medical Oncology
DX: Z15.89 Genetic susceptibility to other disease (principal)
CPT/HCPCS: 76700

== ENCOUNTER 2022-08-18 09:53 | Outpatient (REF) | payer MEDICARE, BC, SELFPAY ==
[2022-08-18 11:33] LABS: Estimated Average Glucose 120 mg/dL; Hemoglobin A1c % 5.8 %
[2022-08-18 11:43] LABS: Cholesterol 266 mg/dL; HDL Cholesterol 58 mg/dL; LDL Cholesterol Calculated 168 mg/dl; Triglycerides 201 mg/dL
[2022-08-18 11:50] LABS: TSH reflex Free T4 0.93 uIU/mL (0.32-4.0)
== END 2022-08-18 09:54 | disposition home or self-care (01) ==
LOC: HO.HMGCLDS 09:53
PROVIDERS: PCP Internal Medicine; Visit Provider Internal Medicine
DX: Z00.00 Encounter for general adult medical examination without abnormal findings (principal); R73.9 Hyperglycemia, unspecified; E78.5 Hyperlipidemia, unspecified
CPT/HCPCS: 36415; 80061; 83036; 84443

== ENCOUNTER → 2022-10-07 10:07 | Outpatient (BNVA) | payer MEDICARE, BC, SELFPAY | PROVIDERS: PCP Internal Medicine; Visit Provider Surgery | DX: N60.92 Unspecified benign mammary dysplasia of left breast (principal) | CPT/HCPCS: 99212 ==

== ENCOUNTER 2022-11-02 09:39 | Outpatient (REF) | payer MEDICARE, BC, SELFPAY ==
[2022-11-02 12:25] LABS: Alanine Aminotransferase 36 U/L (0-31); Albumin Level 4.1 g/dL (3.5-5.0); Alkaline Phosphatase 69 U/L (39-117); Anion Gap 13 (12-20); Aspartate Amino Transferase 42 U/L (5-31); Bilirubin Total 0.6 mg/dL (0.0-1.0); Blood Urea Nitrogen 13 mg/dL (9-16); Calcium 9.8 mg/dL (8.4-10.2); Carbon Dioxide 27 mmol/L (22-29); Chloride 105 mmol/L (96-108); Cholesterol 195 mg/dL; Estimated Glomerular Filt Rate > 60; Glucose Fasting 127 mg/dL (60-99); HDL Cholesterol 53 mg/dL; LDL Cholesterol Calculated 103 mg/dl; Potassium 4.5 mmol/L (3.3-5.1); Sodium 140 mmol/L (135-145); Total Protein 6.9 g/dL (6.5-8.0); Triglycerides 197 mg/dL
== END 2022-11-02 09:40 | disposition home or self-care (01) ==
LOC: HO.HMGCLDS 09:39
PROVIDERS: PCP Internal Medicine; Visit Provider Internal Medicine
DX: Z00.00 Encounter for general adult medical examination without abnormal findings (principal); E78.5 Hyperlipidemia, unspecified; R73.9 Hyperglycemia, unspecified
CPT/HCPCS: 36415; 80053; 80061

== ENCOUNTER → 2022-11-24 12:26 | Outpatient (REF) | payer MEDICARE, BC, SELFPAY ==
--- NOTE | 2022-11-24 12:30 | CA_ITS ---
Transthoracic Echocardiogram Patient (Last, First, Middle): Saadia Lee A Gender: Female Date of : 1955 Age: 67 Procedure Date: 11/24/2022 Procedure Type: Transthoracic Echocardiogram Location: OP Height: 157.48 cm Weight: 81.19 kg BSA: 1.82 m2 Heart Rate: 60 bpm BP: 125 / 75 mmHg Hearing Impaired Itinerant Teacher: VIVIANE Faust MD: Jonathan Braun MD Functional Architect: Jonathan Braun MD Symptoms: I35.0 - Nonrheumatic aortic (valve) stenosis Study Quality: Fair ECG Rhythm: Sinus Conclusions: - Normal left ventricular size and systolic function. The visually estimated ejection fraction is between 55-60%. - Normal right ventricular cavity size and systolic function. - There is moderate aortic valve stenosis. The peak aortic velocity is 2.84 m/s. The mean gradient is 18 mmHg. The aortic valve area is 1.00 cm2. Findings Left Ventricle Normal left ventricular size and systolic function. The visually estimated ejection fraction is between 55-60%. Regional wall motion abnormalities can not be excluded due to suboptimal endocardial definition. Abnormal diastolic function is noted. Spectral Doppler is indicative of an impaired relaxation filling pattern. E/E prime ratio is between 8 and 15 consistent with indeterminate filling pressures. There is mild septal asymmetric hypertrophy. Right Ventricle Normal right ventricular cavity size and systolic function. Atria The left atrium was not well visualized. There is no evidence of interatrial shunt by color Doppler. The right atrium is normal in size. Aortic Valve There is a normal trileaflet aortic valve. There is mild calcification of the aortic valve. There is mild thickening of the aortic valve. There is moderate aortic valve stenosis. The peak aortic velocity is 2.84 m/s. The mean gradient is 18 mmHg. The aortic valve area is 1.00 cm2. There is no aortic valve regurgitation. Mitral Valve Likely normal mitral valve structure and function. There is no mitral valve regurgitation. There is no mitral valve stenosis. Pulmonic Valve The pulmonic valve is likely normal. Tricuspid Valve Normal tricuspid valve structure and function. There is trace tricuspid valve regurgitation. Normal right atrial pressure. There is no evidence of pulmonary hypertension. Great Vessels All visible segments of the aorta are normal in size. Venous The inferior vena cava is normal in size and collapses greater than 50% with inspiration. Pericardium/Pleural There is no evidence of pericardial effusion. Prior Study Comparison Changes noted compared to prior study dated: 10/26/2020. Moderate present. Measurements 2D Linear Measurements IVSd: 1.15 0.6-0.9/0.6-1.0 cm LVIDd: 3.96 3.9-5.3/4.2-5.9 cm LVIDd Index: 2.18 2.4-3.2/2.2-3.1 cm/m2 LVIDs: 2.28 2.0-3.6 cm LVPWd: 0.85 0.7-1.1 cm LA Diam: 3.00 2.7-3.8/3.0-4.0 cm LAIDs Index: 1.65 1.5-2.3 cm/m2 LV Mass: 155.70 67-162/88-224 g LV Mass Index: 85.55 43-95/49-115 g/m2 LVOT Diam: 1.80 3.0+(-)1.3 cm 2D Systolic Function EF 4C: 60.10 >55% EF 2C: 61.50 >55% EF BiP: 62.10 >55% Mitral Valve MV Pk E: 0.74 MV PK A: 0.80 MV Decel Time: 230.00 E/A: 0.90 E'Lateral: 7.40 E'Medial: 5.98 E/E' Med: 12.30 E/E' Lat: 10.00 PHT: 67.00 MVA PHT: 3.28 Decel [place]: 3.20 Aortic Valve AoV Pk Dangelo: 2.84 AoV Mn Dangelo: 1.87 AoV VTI: 0.64 AoV Pk Grad: 32.00 Aov Mn Grad: 18.00 SAHIL Cont.VTI: 1.00 LVOT LVOT Pk Dangelo: 1.10 LVOT Mn Dangelo: 0.76 LVOT VTI: 0.26 LVOT Pk Grad: 5.00 LVOT Mn Grad: 3.00 LVOT Diam: 1.80 LVOT Area: 2.27 Diastolic Function MV Pk E: 0.74 MV Pk A: 0.80 E/A: 0.90 E'Medial: 5.98 E/E' Med: 12.30 E' Laterial: 7.40 E/E' Lat: 10.00 Right Ventricle TAPSE (mm): 17.80 TVS' Dangelo: 9.46 Tricuspid Valve TR Pk Dangelo: 1.83 TR Pk Grad: 13.00 RA Press: 3.00 RVSP: 16.00 Great Vessels Aorta Sinus of Valsalva: 3.10 2.0-3.5 cm Ao Asc: 3.20 2.1-3.4 cm Pulmonary Valve PV Pk Dangelo: 0.88 Peak PV Grad: 3.00 Updated in Other Vendor System with Status of Final Jonathan Braun MD electronically signed on 11/26/2022 5:48:46 PM with status of Final
== END ==
LOC: HO.CARD 12:26
PROVIDERS: PCP Internal Medicine; Visit Provider Internal Medicine Cardiovascular Disease
DX: I35.0 Nonrheumatic aortic (valve) stenosis (principal)
CPT/HCPCS: 93306

== ENCOUNTER 2022-12-13 13:01 | Outpatient (REF) | payer MEDICARE, BC, SELFPAY ==
--- NOTE | ~2022-12-13 | MM_ITS ---
EXAMINATION: MM SCREENING DIGITAL BREAST TOMOSYNTHESIS, BILATERAL CLINICAL INFORMATION: Screening. Asymptomatic. The lifetime risk of breast cancer based on the Tyrer-Cuzick Model is 19.5%. COMPARISON: Mammography: March 02, 2022 and studies dating back to September 21, 2015 TECHNIQUE: Digital breast tomosynthesis is performed in both the craniocaudal and mediolateral oblique views along with computer-aided detection (CAD). Synthesized 2D images are generated from the tomosynthesis. Additional left exaggerated craniocaudal view performed. FINDINGS: There are scattered areas of fibroglandular density (ACR BI-RADS breast composition Category b). There are no new significant masses, abnormal calcifications, or other abnormalities. MM/MM tomosynthesis screening BI IMPRESSION: No significant changes from prior exam. ASSESSMENT: BI-RADS 1: Negative RECOMMENDATION: Routine annual mammography screening. This patient's information was entered into a reminder system with a target due date for their next mammogram.
== END 2022-12-13 13:02 | disposition home or self-care (01) ==
LOC: HO.MAMMO 13:01
PROVIDERS: PCP Internal Medicine; Visit Provider Internal Medicine
DX: Z12.31 Encounter for screening mammogram for malignant neoplasm of breast (principal)
CPT/HCPCS: 77063; 77067

== ENCOUNTER → 2023-02-14 13:57 | Outpatient (BNVA) | payer MEDICARE, BC, SELFPAY | PROVIDERS: PCP Internal Medicine; Referring Provider Internal Medicine; Visit Provider Nurse Practitioner Family | DX: I44.0 Atrioventricular block, first degree (principal); I35.0 Nonrheumatic aortic (valve) stenosis; I10 Essential (primary) hypertension; E78.5 Hyperlipidemia, unspecified | CPT/HCPCS: 93005; 99212 ==

== ENCOUNTER 2023-03-08 10:19 | Outpatient (REF) | payer MEDICARE, BC, SELFPAY ==
[2023-03-08 11:33] LABS: MANUAL DIFF FLAG NO
[2023-03-08 11:55] LABS: Basophils Absolute Auto 0.1 X10*3/uL (0.0-0.2); Basophils Percent Auto 0.9 % (0-2); Eosinophils Absolute Auto 0.2 X10*3/uL (0.0-0.4); Eosinophils Percent Auto 2.6 % (0-4); Hematocrit 42.4 % (37.0-47.0); Hemoglobin 13.8 g/dl (12.0-16.0); Imm Gran Abs Auto 0.01 X10*3/uL (0.00-0.03); Imm Gran Pct Auto 0.1 % (0.0-0.4); Lymphocytes Absolute Auto 3.7 X10*3/uL (1.2-4.9); Lymphocytes Percent Auto 48.6 % (20-40); Mean Corpuscular HGB Conc 32.5 g/dl (31.0-35.0); Mean Corpuscular Hemoglobin 30.3 pg (27.0-33.0); Mean Corpuscular Volume 93.2 fL (80.0-98.0); Mean Platelet Volume 10.2 fL (9.4-12.3); Monocytes Absolute Auto 0.6 X10*3/uL (0.1-1.2); Monocytes Percent Auto 7.7 % (2-11); Neutrophils Absolute Auto 3.1 x10*3/uL (2.0-8.3); Neutrophils Percent Auto 40.1 % (45-73); Platelet Count 252 X10*3/uL (160-400); Red Blood Count 4.55 X10*6/uL (4.20-5.50); White Blood Count 7.7 X10*3/uL (4.8-10.8)
[2023-03-08 12:17] LABS: Estimated Average Glucose 117 mg/dL; Hemoglobin A1c % 5.7 %
[2023-03-08 12:47] LABS: Alanine Aminotransferase 31 U/L (0-31); Albumin Level 4.1 g/dL (3.5-5.0); Alkaline Phosphatase 63 U/L (39-117); Anion Gap 12 (12-20); Aspartate Amino Transferase 42 U/L (5-31); Bilirubin Total 0.7 mg/dL (0.0-1.0); Blood Urea Nitrogen 12 mg/dL (9-16); Calcium 9.4 mg/dL (8.4-10.2); Carbon Dioxide 26 mmol/L (22-29); Chloride 108 mmol/L (96-108); Cholesterol 221 mg/dL; Estimated Glomerular Filt Rate > 60; Glucose Fasting 122 mg/dL (60-99); HDL Cholesterol 63 mg/dL; LDL Cholesterol Calculated 126 mg/dl; Potassium 4.4 mmol/L (3.3-5.1); Sodium 142 mmol/L (135-145); Total Protein 6.6 g/dL (6.5-8.0); Triglycerides 162 mg/dL
[2023-03-10 03:59] LABS: HBc Num1 0.07 S/CO (0.00-0.79); HBsAGNum1 0.31 S/CO (0.00-0.99); Hepatitis A Antibody IgM 0.38 Index (0-0.79); Hepatitis B Core Antibody Nonreactive (Nonreactive); Hepatitis B Surface Antigen Negative (Negative); ~HepC Num1 0.09 S/CO (0.00-0.79); ~Hepatitis A Antibody IgM Nonreactive (Nonreactive); ~Hepatitis B Surface Antibody NONREACTIVE (Nonreactive); ~Hepatitis C Antibody Nonreactive (Nonreactive)
== END 2023-03-08 10:20 | disposition home or self-care (01) ==
LOC: HO.HMGCLDS 10:19
PROVIDERS: PCP Internal Medicine; Visit Provider Internal Medicine
DX: I10 Essential (primary) hypertension (principal); R73.9 Hyperglycemia, unspecified; E78.5 Hyperlipidemia, unspecified
CPT/HCPCS: 36415; 80053; 80061; 83036; 85025; 86704; 86706; 86709; 86803; 87340

== ENCOUNTER → 2023-04-21 11:18 | Outpatient (BNVA) | payer MEDICARE, BC, SELFPAY | PROVIDERS: PCP Internal Medicine; Visit Provider Surgery | DX: N60.92 Unspecified benign mammary dysplasia of left breast (principal) | CPT/HCPCS: 99212 ==

== ENCOUNTER 2023-05-11 10:19 | Outpatient (REF) | payer MEDICARE, BC, SELFPAY ==
[2023-05-11 13:25] LABS: MANUAL DIFF FLAG NO
[2023-05-11 13:51] LABS: Basophils Absolute Auto 0.1 X10*3/uL (0.0-0.2); Basophils Percent Auto 0.8 % (0-2); Eosinophils Absolute Auto 0.6 X10*3/uL (0.0-0.4); Eosinophils Percent Auto 6.8 % (0-4); Hematocrit 42.8 % (37.0-47.0); Hemoglobin 13.7 g/dl (12.0-16.0); Imm Gran Abs Auto 0.01 X10*3/uL (0.00-0.03); Imm Gran Pct Auto 0.1 % (0.0-0.4); Lymphocytes Absolute Auto 3.6 X10*3/uL (1.2-4.9); Lymphocytes Percent Auto 42.5 % (20-40); Mean Corpuscular Hemoglobin 30.4 pg (27.0-33.0); Mean Corpuscular Volume 94.9 fL (80.0-98.0); Mean Platelet Volume 10.4 fL (9.4-12.3); Monocytes Absolute Auto 0.7 X10*3/uL (0.1-1.2); Monocytes Percent Auto 8.8 % (2-11); Neutrophils Absolute Auto 3.5 x10*3/uL (2.0-8.3); Platelet Count 236 X10*3/uL (160-400); Red Blood Count 4.51 X10*6/uL (4.20-5.50); Red Cell Distribution Width 12.8 % (11.0-16.0); White Blood Count 8.4 X10*3/uL (4.8-10.8)
[2023-05-11 14:32] LABS: Alanine Aminotransferase 48 U/L (0-31); Alkaline Phosphatase 58 U/L (39-117); Anion Gap 13 (12-20); Aspartate Amino Transferase 58 U/L (5-31); Bilirubin Total 0.4 mg/dL (0.0-1.0); Blood Urea Nitrogen 16 mg/dL (9-16); Calcium 9.4 mg/dL (8.4-10.2); Carbon Dioxide 24 mmol/L (22-29); Chloride 107 mmol/L (96-108); Cholesterol 141 mg/dL; Estimated Glomerular Filt Rate > 60; Glucose Fasting 127 mg/dL (60-99); HDL Cholesterol 50 mg/dL; LDL Cholesterol Calculated 70 mg/dl; Potassium 4.3 mmol/L (3.3-5.1); Sodium 140 mmol/L (135-145); Total Protein 6.7 g/dL (6.5-8.0); Triglycerides 106 mg/dL
[2023-05-11 14:50] LABS: Estimated Average Glucose 117 mg/dL; Hemoglobin A1c % 5.7 %
== END 2023-05-11 10:20 | disposition home or self-care (01) ==
LOC: HO.HMGCLDS 10:19
PROVIDERS: PCP Internal Medicine; Visit Provider Internal Medicine
DX: I10 Essential (primary) hypertension (principal); R73.9 Hyperglycemia, unspecified; E78.5 Hyperlipidemia, unspecified
CPT/HCPCS: 36415; 80053; 80061; 83036; 85025

== ENCOUNTER 2023-08-25 13:31 | Outpatient (AMB) | payer MEDICARE, BC, SELFPAY ==
--- NOTE | 2023-08-25 13:42 | MHC.PC.OV ---
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 Curran and wishes to address several concerns, including a heart murmur. Additionally, the patient has experienced wheezing, nighttime coughing, and phlegm production after zeenat COVID-19 while on vacation. 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 Accompanied by: Self / Same As Patient Allergies adhesive tape Allergy (Intermediate, Verified 08/25/23 14:02) Rash paper tape Allergy (Intermediate, Uncoded 08/25/23 14:02) Blister Medication List - Last Reconciled 08/25/23 by Sandra Wood MD aspirin (Adult Low Dose Aspirin) 81 mg PO DAILY atenolol 50 mg PO DAILY fluticasone propionate 50 mcg/actuation (Flonase Allergy Relief) 2 sprays intranasal DAILY multivitamin 1 tab PO DAILY raloxifene 60 mg PO DAILY rosuvastatin (Crestor) 10 mg PO DAILY trazodone 50 mg PO BEDTIME PRN Tobacco use date assessed: 03/17/23 Fall risk assessment: No Falls in past year Last assessed Fall Risk: 08/25/23 Dental Screening Dental Screen Date: 08/25/23 Did you have a dental visit in the last 12 months?: Yes Did you have a dental problem in the last 6 months where you did not have access to dental care?: No Was dental information given to patient?: Patient 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 Mammograms up-to-date bone density did show osteopenia and colonoscopy is up-to-date. Patient is being followed up by the surgeon regarding that typical ductal hyperplasia had left breast lumpectomy a patient has been placed on raloxifene February 2022. Patient had an echocardiogram done in November 2022 showing normal left ventricular size and systolic function a EF of 55-60% normal right ventricular cavity moderate aortic stenosis 1.00 cm. scheduled for cone density 08/2023. Cardiology follow-up [facility] Medical History (Updated 08/25/23 @ 14:50 by Sandra Wood MD) Abnormal mammogram of left breast Elevated LFTs Postmenopausal Atypical lobular hyperplasia of left breast Hyperglycemia Murmur Situational anxiety Hyperlipidemia Chronic back pain Postmenopausal Annual physical exam Hypertension Aortic stenosis Surgical History History of lumpectomy of left breast S/P lumpectomy, left breast (03/02/22) Hx of repair of rotator cuff H/O colonoscopy History of back surgery Hx of tonsillectomy Family History Mother CVD (cardiovascular disease) Breast cancer, Onset Age: 60 Father Parkinson disease Brother Prostate cancer Sister Breast cancer, Onset Age: 50 Social History Household Members: Spouse Housing: House Are you a primary tree care foreman to a significant other at home: No Do you presently have visiting nurse or other home services: No Alcohol intake: never Patient Tobacco Use Status: Never used Tobacco e-Cigarette/Vaping Use: Never Used service: No Current occupational status: retired Cognitive needs: No Hearing needs: No Vision needs: Yes Female Reproductive History Menstrual Age of Menarche: 14 Questionnaire PHQ-9 Over the last 2 weeks, how often have you been bothered by any of the following problems? 1. Little interest or pleasure in doing things: not at all 2. Feeling down, depressed, or hopeless: not at all 3. Trouble falling or staying asleep, or sleeping too much: not at all 4. Feeling tired or having little energy: not at all 5. Poor appetite or overeating: not at all 6. Feeling bad about yourself - or that you are a failure or have let yourself or your family down: not at all 7. Trouble concentrating on things, such as reading the newspaper or watching television: not at all 8. Moving or speaking so slowly that other people could have noticed. Or the opposite - being so fidgety or restless that you have been moving around a lot more than usual: not at all 9. Thoughts that you would be better off or of hurting yourself in some way: not at all Total score: 0 33036 - PHQ-9 Billing: Yes Source: Developed by Drs. Yoseph Herbert, Twyla Horne, Artemio Cali and colleagues, with an educational kika from [employer] Thrive Questionnaire Date Thrive assessed: 08/25/23 I am a: Patient What is your living situation today?: I have a steady place to live Within the past 12 months, did the food you bought not last and you didn't have the money to get more?: Never true Within the past 12 months, did you worry whether your food would run out before you got money to buy more?: Never true Do you have trouble paying for medicines?: No Do you have trouble getting transportation to medical appointments?: No Do you have trouble paying your heating and electricity bill?: No Do you have trouble taking care of your child, family member or friend?: No Do you have trouble with day-to-day activities such as bathing, preparing meals, shopping, managing finances, etc.?: No Are you currently unemployed and looking for a job?: No Are you interested in more education?: No Please select the resources that you would like help with: None Currently or been in a relationship where the following occur: no concerns reported AIYANA-7 AMB Questionnaire AIYANA-7 Date AIYANA - 7 assessed: 08/25/23 Feeling nervous, anxious, or on edge: 0 = Not at all Not being able to stop or control worryin = Not at all Worrying too much about different things: 0 = Not at all Trouble relaxin = Not at all Being so restless that it is hard to sit still: 0 = Not at all Becoming easily annoyed or irritable: 0 = Not at all Feeling afraid as if something awful might happen: 0 = Not at all Total AIYANA-7 score (0-4 normal; 5-9 mild; 10-14 moderate; 15-21 severe): 0 Source: Developed by Drs. Yoseph Herbert, Twyla Horne, Artemio Cali and colleagues, with an educational kika from [employer] AIYANA-7 Assessment Billing AIYANA-7 Assessment Tool: AIYANA-7 Assessment 73198 Physical exam (Primary Care) Vital Signs: Last Vital Signs Pulse 70 08/25/23 13:49 BP 138/82 08/25/23 13:49 Pulse Ox 98 08/25/23 13:49 Oxygen Delivery Method Room Air 08/25/23 13:49 BMI result Body Mass Index 30.9 Tobacco/Smoking Status: Tobacco use Status Tobacco use date assessed 03/17/23 08/25/23 13:42 Patient Tobacco Use Status Never used Tobacco 08/25/23 13:42 e-Cigarette/Vaping Use Never Used 08/25/23 13:42 PHQ-9: PHQ-9 Score PHQ-9: Total score 0 08/25/23 14:27 Thrive Assessment: Date of Thrive Assessment Date Thrive assessed 08/25/23 08/25/23 14:05 Currently or been in a relationship where the following occur: no concerns reported Const General: alert; No acute distress Eyes Conjunctivae: conjunctivae normal Resp Auscultation: clear to auscultation bilaterally Cardio Other: Systolic murmur Rate: regular rate Rhythm: regular rhythm Heart sounds: Murmur heart sound present GI Inspection: Yes normal to inspection Extrem General: Yes normal to inspection and No edema Elbow/forearm/wrist images: 1. 1 cm polypoid mass skin tag Assessment and Plan Assessment & Plan (1) Aortic stenosis: Comment: Echo 10/2020 mild-mod , Echo 2022 mod , 1cm2, f/u [facility] cardiology Code(s): I35.0 - Nonrheumatic aortic (valve) stenosis Plan: Continue to follow-up with an echo last echo was a November 2022 patient has a cardiology follow-up also. (2) Atypical ductal hyperplasia of left breast: Comment: Started on Raloxifene 03/13, f/u [facility] oncology Code(s): N60.92 - Unspecified benign mammary dysplasia of left breast Plan: Patient follows up with hematology oncology and the surgeon (3) Hypertension: Code(s): I10 - Essential (primary) hypertension Plan: Continue with blood pressure medication. Decrease salt intake and exercise patient takes atenolol 50 mg once a day (4) Hyperlipidemia: Code(s): E78.5 - Hyperlipidemia, unspecified Plan: Avoid fried foods, chicken skin, eggs, butter margarine, pastries and meat. Be it pork or beef they have a lot of cholesterol LDL goal of less than 130 and triglyceride of less than 150. Patient on rosuvastatin 10 mg once a day (5) Impaired glucose tolerance: Code(s): R73.02 - Impaired glucose tolerance (oral) Plan: Decrease the amount of carbohydrate intake, pasta, bread, rice and potatoes are all sugar and that is aside from all the sweet stuff, remember that fruits are good but they are Sweet also. (6) Fatty liver: Comment: Liver ultrasound showed fatty liver and normal gallbladder 08/13 Code(s): K76.0 - Fatty (change of) liver, not elsewhere classified Plan: Low-fat diet and exercise (7) Left renal stone: Comment: 05/2022 Code(s): N20.0 - Calculus of kidney Plan: Increase oral fluids. (8) Osteopenia: Comment: 08/2021 Code(s): M85.80 - Other specified disorders of bone density and structure, unspecified site (9) Insomnia: Code(s): G47.00 - Insomnia, unspecified (10) Skin tag: Comment: right thigh posterior 1 cm Code(s): L91.8 - Other hypertrophic disorders of the skin (11) Post-nasal drip: Code(s): R09.82 - Postnasal drip Orders: Orders Complete Blood Count Auto Diff Today R73.02 - Impaired glucose tolerance (oral) Comprehensive Met. Panel Today R73.02 - Impaired glucose tolerance (oral) Free T4 (Free Thyroxine) Today R73.02 - Impaired glucose tolerance (oral) Hemoglobin A1c Today R73.02 - Impaired glucose tolerance (oral) Lipid Panel Today E78.00 - Pure hypercholesterolemia, unspecified, R73.02 - Impaired glucose tolerance (oral) Thyroid Stimulating Hormone Today R73.02 - Impaired glucose tolerance (oral) Vitamin B12 and Folate Today R73.02 - Impaired glucose tolerance (oral) Referrals Dermatology Referral L91.8 - Other hypertrophic disorders of the skin Medications: New fluticasone propionate 50 mcg/actuation (Flonase Allergy Relief) administer into each nostril 2 sprays intranasal DAILY 16 grams 2RF R09.82 - Postnasal drip trazodone 50 mg PO BEDTIME PRN 30 tabs 2RF sleep G47.00 - Insomnia, unspecified Discontinued raloxifene Discontinued Reason: Doctor's Order 60 mg PO DAILY 30 tabs 5RF Coding Level of Care Code New Pt Level 4 (85746) Diagnoses Aortic stenosis I35.0 Atypical ductal hyperplasia of left breast N60.92 Hypertension I10 Hyperlipidemia E78.5 Impaired glucose tolerance R73.02 Fatty liver K76.0 Left renal stone N20.0 Osteopenia M85.80 Insomnia G47.00 Skin tag L91.8 Post-nasal drip R09.82 Additional Codes AIYANA-7 Assessment Billing - AIYANA-7 Assessment Tool: AIYANA-7 Assessment 11328 ([id number])
[2023-08-25 13:49] VITALS: BP 138/82; PULSE 70; O2SAT 98; BMI 30.9
== END 2023-08-25 14:58 | disposition home or self-care (01) ==
PROVIDERS: PCP Internal Medicine; Visit Provider Internal Medicine
DX: I35.0 Nonrheumatic aortic (valve) stenosis (principal); N60.92 Unspecified benign mammary dysplasia of left breast; I10 Essential (primary) hypertension; E78.5 Hyperlipidemia, unspecified; R73.02 Impaired glucose tolerance (oral); K76.0 Fatty (change of) liver, not elsewhere classified; N20.0 Calculus of kidney; M85.80 Other specified disorders of bone density and structure, unspecified site; G47.00 Insomnia, unspecified; L91.8 Other hypertrophic disorders of the skin; R09.82 Postnasal drip
CPT/HCPCS: 99204; 99214

== ENCOUNTER 2023-09-19 14:17 | Outpatient (REF) | payer MEDICARE, BC, SELFPAY ==
--- NOTE | ~2023-09-19 | MM_ITS ---
EXAMINATION: BONE DENSITOMETRY CLINICAL INDICATION: Osteopenia. COMPARISON: Previous BD dated 09/15/2021 and baseline BD dated 06/18/2009. TECHNIQUE: Using a [employer] DXA System (software version: 13.1) manufactured by [email or web address], dual-energy x-ray absorptiometry was performed of the lumbar spine and left hip. The images are of good technical quality. Summary results are attached. FINDINGS: LEFT FEMUR, NECK: Current: BMD 0.896 g/cm2, Z-score 0.3, T-score -1.0, normal. Prior: BMD 0.844 g/cm2. Baseline: BMD 0.970 g/cm2. LEFT FEMUR, TOTAL: Current: BMD 0.926 g/cm2, Z-score 0.4, T-score -0.6, normal, 1.0% increase from previous, 11.1% decrease from baseline (<5% change is not significant). Prior: BMD 0.917 g/cm2. Baseline: BMD 1.042 g/cm2. AP SPINE L1-L4: Current: BMD 1.132 g/cm2, Z-score 0.7, T-score -0.4, normal, 0.4% increase from previous, 5.7% decrease from baseline (<5% change is not significant). Prior: BMD 1.128 g/cm2. Baseline: BMD 1.201 g/cm2. IDENTIFIED RISK FACTORS: Menopause. HISTORY OF FRACTURE: None listed. MEDICATIONS: Calcium supplements, vitamin D, ERT/SERMS. MM/XR DEXA axial skeleton IMPRESSION: 1. DIAGNOSIS: Normal bone density based on the lowest T-score value of -1.0 in the femoral neck applying World Health Organization criteria. 2. 10-YEAR FRACTURE RISK PREDICTION, FRAX: According to the guidelines, FRAX calculation should only be performed on patients in the osteopenia bone density category. Therefore, FRAX was not performed on this patient. 3. Treatment Recommendations: NOF guidelines recommend consideration for treatment in postmenopausal women and men age 50 and older presenting with the following: -A hip or vertebral (clinical or morphometric) fracture. -T-score less than or equal to -2.5 at the femoral neck or spine after appropriate evaluation to exclude secondary causes. -Low bone mass at the hip or spine and a 10-year fracture probability by FRAX of greater than or equal to 3% for hip fracture or greater than or equal to 20% for major osteoporotic fracture based on the [place] adapted WHO algorithm. 4. Other Recommendations: All treatment decisions require clinical judgment and consideration of individual patient factors, including patient preferences, comorbidities, previous drug use, risk factors not captured in the FRAX model (e.g. frailty, falls, vitamin D deficiency, increased bone turnover, interval significant decline in bone density) and possible under or overestimation of fracture risk by FRAX. FUTURE SCAN RECOMMENDATION: People with diagnosed cases of osteoporosis or at high risk for fracture should have regular bone mineral density tests. For patients eligible for Medicare, routine testing is allowed once every 2 years. The testing frequency can be increased to one year for patients who have rapidly progressing disease, those who are receiving or discontinuing medical therapy to restore bone mass, or have additional risk factors.
== END 2023-09-19 14:18 | disposition home or self-care (01) ==
LOC: HO.MAMMO 14:17
PROVIDERS: PCP Internal Medicine; Visit Provider Internal Medicine Medical Oncology
DX: Z13.820 Encounter for screening for osteoporosis (principal); Z78.0 Asymptomatic menopausal state; M85.80 Other specified disorders of bone density and structure, unspecified site
CPT/HCPCS: 77080

== ENCOUNTER 2023-09-26 09:47 | Outpatient (REF) | payer MEDICARE, BC, SELFPAY ==
[2023-09-26 13:34] LABS: Basophils Absolute Auto 0.1 X10*3/uL (0.0-0.2); Basophils Percent Auto 1.2 % (0-2); Eosinophils Absolute Auto 0.3 X10*3/uL (0.0-0.4); Eosinophils Percent Auto 4.2 % (0-4); Hematocrit 41.7 % (37.0-47.0); Hemoglobin 13.6 g/dl (12.0-16.0); Imm Gran Abs Auto 0.01 X10*3/uL (0.00-0.03); Imm Gran Pct Auto 0.2 % (0.0-0.4); Lymphocytes Absolute Auto 3.7 X10*3/uL (1.2-4.9); MANUAL DIFF FLAG SCAN; Mean Corpuscular HGB Conc 32.6 g/dl (31.0-35.0); Mean Corpuscular Hemoglobin 30.5 pg (27.0-33.0); Mean Corpuscular Volume 93.5 fL (80.0-98.0); Mean Platelet Volume 9.9 fL (9.4-12.3); Monocytes Absolute Auto 0.5 X10*3/uL (0.1-1.2); Monocytes Percent Auto 6.8 % (2-11); Neutrophils Absolute Auto 2.2 x10*3/uL (2.0-8.3); Neutrophils Percent Auto 32.2 % (45-73); Platelet Count 229 X10*3/uL (160-400); Red Blood Count 4.46 X10*6/uL (4.20-5.50); Red Cell Distribution Width 12.9 % (11.0-16.0); SCAN SMEAR FLAG 1; White Blood Count 6.7 X10*3/uL (4.8-10.8)
[2023-09-26 13:45] LABS: Estimated Average Glucose 131 mg/dL; Hemoglobin A1c % 6.2 % (<6.0)
[2023-09-26 14:00] LABS: Alanine Aminotransferase 27 U/L (0-31); Albumin Level 3.9 g/dL (3.5-5.0); Alkaline Phosphatase 54 U/L (39-117); Anion Gap 12 (12-20); Aspartate Amino Transferase 41 U/L (5-31); Bilirubin Total 0.6 mg/dL (0.0-1.0); Blood Urea Nitrogen 12 mg/dL (9-16); Calcium 9.2 mg/dL (8.4-10.2); Carbon Dioxide 26 mmol/L (22-29); Chloride 106 mmol/L (96-108); Cholesterol 177 mg/dL (<200); Estimated Glomerular Filt Rate > 60; Glucose Random 130 mg/dL (60-115); HDL Cholesterol 54 mg/dL (>40); LDL Cholesterol Calculated 92 mg/dL (<100); Potassium 4.3 mmol/L (3.3-5.1); Sodium 140 mmol/L (135-145); Triglycerides 159 mg/dL (<150)
[2023-09-26 14:12] LABS: Lymphocytes Percent Auto 55.4 % (20-40)
[2023-09-26 14:13] LABS: SLIDE REVIEW VERIFIED
[2023-09-26 14:22] LABS: Folate 14.5 ng/mL (> or = 4.0); Vitamin B12 1539 pg/mL (200-900)
[2023-09-26 14:29] LABS: Free T4 (Free Thyroxine) 0.87 ng/dL (0.71-1.85); Thyroid Stimulating Hormone 0.78 uIU/mL (0.32-4.0)
== END 2023-09-26 09:48 | disposition home or self-care (01) ==
LOC: HO.HMGCLDS 09:47
PROVIDERS: PCP Internal Medicine; Visit Provider Internal Medicine
DX: R73.02 Impaired glucose tolerance (oral) (principal); E78.00 Pure hypercholesterolemia, unspecified
CPT/HCPCS: 36415; 80053; 80061; 82607; 82746; 83036; 84439; 84443; 85025

== ENCOUNTER 2023-11-02 10:43 | Outpatient (AMB) | payer MEDICARE, BC, SELFPAY ==
--- NOTE | 2023-11-02 10:59 | MHC.OFFVIS ---
Intake Vital Signs 11/02/23 11:12 Height 5 ft 2 in Weight 174 lb BMI 31.8 BP 130/80 Blood Pressure Location Lt brachial Position Sitting Intake Visit Reasons: Breast exam, 6 month follow up Intake Note: Patient is seen in office for 6 month follow up visit, breast exam. 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 Accompanied by: Self / Same As Patient Allergies adhesive tape Allergy (Intermediate, Verified 11/02/23 11:14) Rash paper tape Allergy (Intermediate, Uncoded 11/02/23 11:14) Blister Medication List - Last Reconciled 11/02/23 by Dimas Rubin MD aspirin (Adult Low Dose Aspirin) 81 mg PO DAILY atenolol 50 mg PO DAILY fluticasone propionate 50 mcg/actuation (Flonase Allergy Relief) 2 sprays intranasal DAILY multivitamin 1 tab PO DAILY raloxifene 60 mg PO DAILY rosuvastatin (Crestor) 10 mg PO DAILY trazodone 50 mg PO BEDTIME PRN HPI HPI Comments History of Present Illness Details 68-year-old female patient returning for a routine breast examination. She was found to have a left breast grouped punctate calcifications in the 1 o'clock position of to be suspicious for malignancy. Stereotactic guided core biopsy on 02/11/2022 revealed atypical lobular hyperplasia, columnar cell change and hyperplasia without atypia, with microcalcifications, benign lobules with microcalcifications, lobular atrophy and stromal fibrosis. She underwent lumpectomy with needle localization on 03/02/2022. Pathology confirmed atypical lobular hyperplasia (multifocal) and atypical ductal hyperplasia (single focus). Her postoperative course was complicated by a seroma require needle aspiration. She was evaluated by Dr. Brandt and started on raloxifene. Her family history is significant for her mother developing breast cancer in her 60s as well as other sister developing breast cancer in her 50s. Her sister subsequently developed a recurrence 10 years later while in her 60s and subsequently required a mastectomy. The patient is and she did not breast feed her child. Her most recent mammogram of 12/13/2022 revealed no significant change from her prior mammogram (BI-RADS 1: Negative). She is scheduled for a follow-up mammogram on 12/14/2023. She feels well and denies any new breast symptoms. [facility] Medical History Abnormal mammogram of left breast Elevated LFTs Postmenopausal Atypical lobular hyperplasia of left breast Hyperglycemia Murmur Situational anxiety Hyperlipidemia Chronic back pain Postmenopausal Annual physical exam Hypertension Aortic stenosis Surgical History History of lumpectomy of left breast S/P lumpectomy, left breast (03/02/22) Hx of repair of rotator cuff H/O colonoscopy History of back surgery Hx of tonsillectomy Family History Mother CVD (cardiovascular disease) Breast cancer, Onset Age: 60 Father Parkinson disease Brother Prostate cancer Sister Breast cancer, Onset Age: 50 Social History Household Members: Spouse Housing: House Are you a primary patient care associate to a significant other at home: No Do you presently have visiting nurse or other home services: No Alcohol intake: never Patient Tobacco Use Status: Never used Tobacco e-Cigarette/Vaping Use: Never Used service: No Current occupational status: retired Cognitive needs: No Hearing needs: No Vision needs: Yes Female Reproductive History Menstrual Age of Menarche: 14 Review of Systems Const Denies chills, Denies fever(s), Denies headache(s) and Denies poor appetite ENT Denies dizziness and Denies headache(s) Card Denies chest pain, Denies rapid heart rate, Denies palpitations and Denies slow heart rate Resp Denies chest congestion, Denies cough, Denies pain on inspiration and Denies wheezing GI Denies abdominal pain, Denies bloating, Denies change in stool character, Denies constipation, Denies diarrhea, Denies nausea, Denies vomiting and Denies hematemesis Denies nipple discharge Musc Denies back pain, Denies arthralgias, Denies joint swelling and Denies numbness Skin/Breast Denies breast skin changes, Denies breast pain, Denies breast mass, Denies change in pigmentation, Denies nipple discharge, Denies erythema and Denies rash Neuro Denies dizziness, Denies headache(s) and Denies numbness Psych Denies anxiety and Denies depression Endo Denies palpitations Sigifredo/Lymph Denies easy bleeding, Denies easy bruising and Denies lymphadenopathy Aller/Immun Denies wheezing Physical Exam Vital Signs: Last Vital Signs BP 130/80 11/02/23 11:12 BMI result Body Mass Index 31.8 Const General: no acute distress Neck Neck: Yes normal visual inspection and Yes no lymphadenopathy Chest Other: Left breast: Well-healed incision in the upper outer quadrant without redness or discharge. Scar is much softer with no seroma/hematoma. No new palpable mass, skin change, nipple discharge, or enlarged lymph nodes. Right breast: No skin change, nipple discharge, palpable mass, or enlarged lymph nodes. Resp Effort & Inspection: normal respiratory effort Skin General skin exam: no rashes or lesions noted Assessment & Plan Assessment & Plan (1) Atypical ductal hyperplasia of left breast: Comment: Started on Raloxifene 03/13, f/u [facility] [place] [facility] oncology Code(s): N60.92 - Unspecified benign mammary dysplasia of left breast (2) Atypical lobular hyperplasia of left breast: Code(s): N60.92 - Unspecified benign mammary dysplasia of left breast Plan Patient returns for follow-up examination following left breast lumpectomy for atypical lobular hyperplasia and atypical ductal hyperplasia. She was evaluated by Dr. Brandt and started on antiestrogen therapy. Examination today reveals no suspicious findings in either breast. Her most recent mammogram of 12/13/2022 revealed no suspicious findings in either breast (BI-RADS 1). I recommended a follow-up examination in 6 months. She is welcome to call sooner for any new concerns. Coding Level of Care Code Est Pt Level 3 (25007) Diagnoses Atypical ductal hyperplasia of left breast N60.92 Atypical lobular hyperplasia of left breast N60.92
[2023-11-02 11:12] VITALS: BP 130/80; BMI 31.8
== END 2023-11-02 11:26 | disposition home or self-care (01) ==
PROVIDERS: PCP Internal Medicine; Visit Provider Surgery
DX: N60.92 Unspecified benign mammary dysplasia of left breast (principal)
CPT/HCPCS: 99213

== ENCOUNTER → 2023-11-02 10:43 | Outpatient (BNVA) | payer MEDICARE, BC, SELFPAY | PROVIDERS: PCP Internal Medicine; Visit Provider Surgery | DX: N60.92 Unspecified benign mammary dysplasia of left breast (principal) | CPT/HCPCS: 99212 ==

== ENCOUNTER 2023-12-07 15:11 | Outpatient (AMB) | payer MEDICARE, BC, SELFPAY ==
[2023-12-07 15:29] VITALS: BP 136/72; PULSE 70; O2SAT 99; BMI 32.0
--- NOTE | 2023-12-07 15:29 | MHC.PC.OV ---
Vital Signs 12/07/23 15:29 Height 5 ft 2 in Weight 175 lb BMI 32.0 BP 136/72 Blood Pressure Location Lt brachial Position Sitting Pulse 70 Pulse Source Pulse Oximeter Pulse Oximetry (%) 99 Oxygen Delivery Method Room Air Intake Visit Reasons: 3 months IGT, nephrolithiasis Wrapper Off Required: No Founding Partner: Not Required per policy Accompanied by: Self / Same As Patient Allergies adhesive tape Allergy (Intermediate, Verified 12/07/23 15:29) Rash paper tape Allergy (Intermediate, Uncoded 12/07/23 15:29) Blister Tobacco use date assessed: 12/07/23 Fall risk assessment: No Falls in past year Last assessed Fall Risk: 12/07/23 Dental Screening Dental Screen Date: 12/07/23 Did you have a dental visit in the last 12 months?: Yes Did you have a dental problem in the last 6 months where you did not have access to dental care?: No Was dental information given to patient?: Patient has dentist HPI 3 months IGT, nephrolithiasis HPI Details 78-year-old obese female with multiple medical problems has aortic stenosis last echo November 2022 atypical ductal hyperplasia of the left breast following up with Hematology-Oncology hypertension hypercholesterolemia impaired glucose tolerance fatty liver history of nephrolithiasis left osteopenia coming in for follow-up. August last seen mammogram is up-to-date November 2022 due this month bone density osteopenia August 2021. Patient's colonoscopy March 2022. Review of the notes seen dermatology shave removal right distal posterior thigh.. Breast exam done October 2023 left breast lumpectomy for atypical lobular hyperplasia and atypical ductal hyperplasia started on antiestrogen therapy. Seeing also the Hematology-Oncology on raloxifene bone density scheduled September 19 normal bone density [facility] Medical History Abnormal mammogram of left breast Elevated LFTs Postmenopausal Atypical lobular hyperplasia of left breast Hyperglycemia Murmur Situational anxiety Hyperlipidemia Chronic back pain Postmenopausal Annual physical exam Hypertension Aortic stenosis Surgical History History of lumpectomy of left breast S/P lumpectomy, left breast (03/02/22) Hx of repair of rotator cuff H/O colonoscopy History of back surgery Hx of tonsillectomy Family History Mother CVD (cardiovascular disease) Breast cancer, Onset Age: 60 Father Parkinson disease Brother Prostate cancer Sister Breast cancer, Onset Age: 50 Social History Household Members: Spouse Housing: House Are you a primary child day care center worker to a significant other at home: No Do you presently have visiting nurse or other home services: No Alcohol intake: never Patient Tobacco Use Status: Never used Tobacco e-Cigarette/Vaping Use: Never Used service: No Current occupational status: retired Cognitive needs: No Hearing needs: No Vision needs: Yes Female Reproductive History Menstrual Age of Menarche: 14 Questionnaire PHQ-9 Over the last 2 weeks, how often have you been bothered by any of the following problems? 1. Little interest or pleasure in doing things: not at all 2. Feeling down, depressed, or hopeless: not at all 3. Trouble falling or staying asleep, or sleeping too much: not at all 4. Feeling tired or having little energy: not at all 5. Poor appetite or overeating: not at all 6. Feeling bad about yourself - or that you are a failure or have let yourself or your family down: not at all 7. Trouble concentrating on things, such as reading the newspaper or watching television: not at all 8. Moving or speaking so slowly that other people could have noticed. Or the opposite - being so fidgety or restless that you have been moving around a lot more than usual: not at all 9. Thoughts that you would be better off or of hurting yourself in some way: not at all Total score: 0 33086 - PHQ-9 Billing: Yes Source: Developed by Drs. Yoseph Herbert, Twyla Horne, Artemio Cali and colleagues, with an educational kika from [employer]. Thrive Questionnaire Date Thrive assessed: 12/07/23 I am a: Patient What is your living situation today?: I have a steady place to live Within the past 12 months, did the food you bought not last and you didn't have the money to get more?: Never true Within the past 12 months, did you worry whether your food would run out before you got money to buy more?: Never true Do you have trouble paying for medicines?: No Do you have trouble getting transportation to medical appointments?: No Do you have trouble paying your heating and electricity bill?: No Do you have trouble taking care of your child, family member or friend?: No Do you have trouble with day-to-day activities such as bathing, preparing meals, shopping, managing finances, etc.?: No Are you currently unemployed and looking for a job?: No Are you interested in more education?: No Please select the resources that you would like help with: None THRIVE Score: 0 AUDIT C Alcohol Use Questionnaire (AUDIT-C) 1. How often do you have a drink containing alcohol?: Never 3. How often do you have six or more drinks on one occasion?: Never Total Score: 0 AIYANA-7 AMB Questionnaire AIYANA-7 Date AIYANA - 7 assessed: 12/07/23 Feeling nervous, anxious, or on edge: 0 = Not at all Not being able to stop or control worryin = Not at all Worrying too much about different things: 0 = Not at all Trouble relaxin = Not at all Being so restless that it is hard to sit still: 0 = Not at all Becoming easily annoyed or irritable: 0 = Not at all Feeling afraid as if something awful might happen: 0 = Not at all Total AIYANA-7 score (0-4 normal; 5-9 mild; 10-14 moderate; 15-21 severe): 0 Source: Developed by Drs. Yoseph Herbert, Twyla Horne, Artemio Cali and colleagues, with an educational kika from [employer]. Physical exam (Primary Care) Vital Signs: Last Vital Signs Pulse 70 12/07/23 15:29 BP 136/72 12/07/23 15:29 Pulse Ox 99 12/07/23 15:29 Oxygen Delivery Method Room Air 12/07/23 15:29 BMI result Body Mass Index 32.0 Tobacco/Smoking Status: Tobacco use Status Tobacco use date assessed 12/07/23 12/07/23 15:30 Patient Tobacco Use Status Never used Tobacco 12/07/23 15:30 e-Cigarette/Vaping Use Never Used 12/07/23 15:30 PHQ-9: PHQ-9 Score PHQ-9: Total score 0 12/07/23 15:49 Thrive Assessment: Date of Thrive Assessment Date Thrive assessed 12/07/23 12/07/23 15:30 Const General: alert; No acute distress Eyes Conjunctivae: conjunctivae normal Resp Auscultation: clear to auscultation bilaterally Cardio Rate: regular rate Rhythm: regular rhythm GI Inspection: Yes normal to inspection Extrem General: Yes normal to inspection and No edema Assessment and Plan Assessment & Plan (1) Type 2 diabetes mellitus with hyperglycemia: Comment: Dr. Bahena Code(s): E11.65 - Type 2 diabetes mellitus with hyperglycemia Plan: Patient's fasting blood sugar full filled diabetic diagnosis hemoglobin A1c is under control the at 6.2 Decrease the amount of carbohydrate intake, pasta, bread, rice and potatoes are all sugar and that is aside from all the sweet stuff, remember that fruits are good but they are Sweet also. (2) Osteopenia: Comment: 08/2021, August 2023 normal Code(s): M85.80 - Other specified disorders of bone density and structure, unspecified site Plan: Continue to monitor with bone density. Has been placed on raloxifene (3) Fatty liver: Comment: Liver ultrasound showed fatty liver and normal gallbladder 08/13 Code(s): K76.0 - Fatty (change of) liver, not elsewhere classified Plan: Low-fat diet and exercise (4) Aortic stenosis: Comment: Echo 10/2020 mild-mod , Echo 2022 mod , 1cm2, f/u [facility] cardiology Code(s): I35.0 - Nonrheumatic aortic (valve) stenosis Plan: Patient needs continuing echocardiogram for this year. (5) Hypertension: Code(s): I10 - Essential (primary) hypertension Plan: Continue with blood pressure medication. Decrease salt intake and exercise takes atenolol 50 mg once a day (6) Atypical ductal hyperplasia of left breast: Comment: Started on Raloxifene 03/13, f/u [facility] oncology Code(s): N60.92 - Unspecified benign mammary dysplasia of left breast Plan: Patient follows up with Hematology-Oncology in the surgeon. Reminded about mammogram (7) Hyperlipidemia: Code(s): E78.5 - Hyperlipidemia, unspecified Plan: Avoid fried foods, chicken skin, eggs, butter margarine, pastries and meat. Be it pork or beef they have a lot of cholesterol LDL goal of less than 100 and triglyceride of less than 150. Patient on rosuvastatin 10 mg once a day (8) Insomnia: Code(s): G47.00 - Insomnia, unspecified Plan: Increase trazodone done 200 mg once at bedtime. Medications: Changed From trazodone 50 mg PO BEDTIME PRN 30 tabs 2RF sleep G47.00 - Insomnia, unspecified To trazodone 100 mg PO BEDTIME PRN 30 tabs 2RF sleep G47.00 - Insomnia, unspecified Coding Level of Care Code Est Pt Level 4 (63567) Diagnoses Type 2 diabetes mellitus with hyperglycemia E11.65 Osteopenia M85.80 Fatty liver K76.0 Aortic stenosis I35.0 Hypertension I10 Atypical ductal hyperplasia of left breast N60.92 Hyperlipidemia E78.5 Insomnia G47.00
== END 2023-12-07 16:25 | disposition home or self-care (01) ==
PROVIDERS: PCP Internal Medicine; Visit Provider Internal Medicine
DX: E11.65 Type 2 diabetes mellitus with hyperglycemia (principal); M85.80 Other specified disorders of bone density and structure, unspecified site; K76.0 Fatty (change of) liver, not elsewhere classified; I35.0 Nonrheumatic aortic (valve) stenosis; I10 Essential (primary) hypertension; N60.92 Unspecified benign mammary dysplasia of left breast; E78.5 Hyperlipidemia, unspecified; G47.00 Insomnia, unspecified
CPT/HCPCS: 99214

== ENCOUNTER 2023-12-14 13:12 | Outpatient (REF) | payer MEDICARE, BC, SELFPAY ==
--- NOTE | ~2023-12-14 | MM_ITS ---
EXAMINATION: MM SCREENING DIGITAL BREAST TOMOSYNTHESIS, BILATERAL CLINICAL INFORMATION: Screening. Asymptomatic. The patient has a history of excised left atypical lobular hyperplasia and atypical ductal hyperplasia. COMPARISON: Mammography: This study is compared with prior exams dating back to 2019. TECHNIQUE: Digital breast tomosynthesis is performed in both the craniocaudal and mediolateral oblique views along with computer-aided detection (CAD). Synthesized 2D images are generated from the tomosynthesis. FINDINGS: There are scattered areas of fibroglandular density (ACR BI-RADS breast composition Category b). There are no significant masses, abnormal calcifications, or other abnormalities. There is minor architectural changes in the upper outer quadrant of the left breast from prior excision. MM/MM tomosynthesis screening BI IMPRESSION: No mammographic evidence of malignancy. ASSESSMENT: BI-RADS BI-RADS 2 - Benign Findings RECOMMENDATION: Routine annual mammography screening. 1 year F/U This examination should not preclude the clinical evaluation of a suspicious palpable abnormality. This patient's information was entered into a reminder system with a target due date for their next mammogram.
== END 2023-12-14 13:13 | disposition home or self-care (01) ==
LOC: HO.MAMMO 13:12
PROVIDERS: PCP Internal Medicine; Visit Provider Internal Medicine
DX: Z12.31 Encounter for screening mammogram for malignant neoplasm of breast (principal)
CPT/HCPCS: 77063; 77067

== ENCOUNTER → 2023-12-14 13:15 | Outpatient (BNV) | payer MEDICARE, BC, SELFPAY | PROVIDERS: PCP Internal Medicine; Visit Provider Radiology Diagnostic Radiology | DX: Z12.31 Encounter for screening mammogram for malignant neoplasm of breast (principal) | CPT/HCPCS: 77063; 77067 ==

== ENCOUNTER → 2024-02-12 10:56 | Outpatient (REF) | payer MEDICARE, BC, SELFPAY ==
--- NOTE | 2024-02-12 10:59 | CA_ITS ---
Transthoracic Echocardiogram Patient (Last, First, Middle): Saadia Lee A Gender: Female Date of : 1955 Age: 68 Procedure Date: 02/12/2024 Procedure Type: Transthoracic Echocardiogram Location: OP Height: 157.48 cm Weight: 79.38 kg BSA: 1.81 m2 Heart Rate: bpm BP: 118 / 74 mmHg Chemical Operations Specialist: TIFFANY Referring MD: Izabella Frye AGRICULTURAL INSPECTOR-C Senior Art Director: Karson Zaragoza MD Symptoms: I35.0 NR AVS Study Quality: Fair ECG Rhythm: Sinus Conclusions: - 1. Normal LV ejection fraction of 60 65% with impaired relaxation filling pattern 2. Moderate aortic stenosis with mean gradient of 21 mm Hg, slightly worse 3. Normal RV systolic pressure 4. No gross pericardial effusion Findings Left Ventricle Normal left ventricular size, thickness, and systolic function. The visually estimated ejection fraction is between 60-65%. Spectral Doppler is indicative of an impaired relaxation filling pattern. E/E prime ratio is between 8 and 15 consistent with indeterminate filling pressures. Right Ventricle Normal right ventricular cavity size and systolic function. Atria The left atrium is likely dilated. There is no evidence of interatrial shunt. The right atrium is normal in size. Aortic Valve There is moderate calcification of the aortic valve. There is moderate thickening of the aortic valve. There is moderate aortic valve stenosis. The peak aortic gradient is 38 mmHg.The mean gradient is 21 mmHg. The aortic valve area is 1.15 cm2. There is no aortic valve regurgitation. Mitral Valve There is mild anterior and posterior mitral leaflet thickening. There is mild mitral annular calcification. There is trace mitral valve regurgitation. There is no mitral valve stenosis. Pulmonic Valve The pulmonic valve is likely normal. There is trace pulmonic valve regurgitation. Tricuspid Valve Normal tricuspid valve structure. There is trace tricuspid valve regurgitation. The right ventricular systolic pressure is normal. The right ventricular systolic pressure is 24 mmHg. Normal right atrial pressure. There is no evidence of pulmonary hypertension. Great Vessels The pulmonary artery was not well visualized. There is no dilatation of the ascending aorta measuring 3.40 cm. Venous The inferior vena cava is normal in size and collapses greater than 50% with inspiration. Pericardium/Pleural There is no evidence of pericardial effusion. Prior Study Comparison No significant change compared to prior study dated: 11/24/2022. Measurements 2D Linear Measurements IVSd: 1.12 0.6-0.9/0.6-1.0 cm LVIDd: 3.67 3.9-5.3/4.2-5.9 cm LVIDd Index: 2.03 2.4-3.2/2.2-3.1 cm/m2 LVIDs: 2.32 2.0-3.6 cm LVPWd: 1.13 0.7-1.1 cm LA Diam: 3.20 2.7-3.8/3.0-4.0 cm LAIDs Index: 1.77 1.5-2.3 cm/m2 LV Mass: 164.37 67-162/88-224 g LV Mass Index: 90.81 43-95/49-115 g/m2 LVOT Diam: 2.10 3.0+(-)1.3 cm 2D Systolic Function EF 4C: 65.50 >55% EF 2C: 59.90 >55% EF BiP: 62.30 >55% Mitral Valve MV Pk E: 0.81 MV PK A: 0.74 MV Decel Time: 236.00 E/A: 1.10 E'Lateral: 8.27 E'Medial: 5.98 E/E' Med: 13.50 E/E' Lat: 9.80 PHT: 69.00 MVA PHT: 3.19 Decel [place]: 3.43 Aortic Valve AoV Pk Dangelo: 3.07 AoV Mn Dangelo: 2.14 AoV VTI: 0.81 AoV Pk Grad: 38.00 Aov Mn Grad: 21.00 SAHIL Cont.VTI: 1.15 LVOT LVOT Pk Dangelo: 1.13 LVOT Mn Dangelo: 0.75 LVOT VTI: 0.27 LVOT Pk Grad: 5.00 LVOT Mn Grad: 3.00 LVOT Diam: 2.10 LVOT Area: 3.46 Diastolic Function MV Pk E: 0.81 MV Pk A: 0.74 E/A: 1.10 E'Medial: 5.98 E/E' Med: 13.50 E' Laterial: 8.27 E/E' Lat: 9.80 Right Ventricle TAPSE (mm): 20.00 TVS' Dangelo: 9.79 Tricuspid Valve TR Pk Dangelo: 1.98 TR Pk Grad: 16.00 RA Press: 8.00 RVSP: 24.00 Great Vessels Aorta Sinus of Valsalva: 3.28 2.0-3.5 cm Ao Asc: 3.40 2.1-3.4 cm Ao Arch: 2.80 Updated in Other Vendor System with Status of Final Karson Zaragoza MD electronically signed on 02/12/2024 4:16:42 PM with status of Final
== END ==
LOC: HO.CARD 10:56
PROVIDERS: PCP Internal Medicine; Visit Provider Nurse Practitioner Family
DX: I35.0 Nonrheumatic aortic (valve) stenosis (principal)
CPT/HCPCS: 93306

== ENCOUNTER → 2024-02-12 10:59 | Outpatient (BNV) | payer MEDICARE, BC, SELFPAY | PROVIDERS: PCP Internal Medicine; Visit Provider Internal Medicine Cardiovascular Disease | DX: I35.0 Nonrheumatic aortic (valve) stenosis (principal) | CPT/HCPCS: 93306 ==

== ENCOUNTER 2024-02-21 09:08 | Outpatient (AMB) | payer MEDICARE, BC, SELFPAY ==
[2024-02-21 09:20] VITALS: BP 140/62; PULSE 64; BMI 32.7
--- NOTE | 2024-02-21 09:20 | MHC.OFFVIS ---
Vital Signs 02/21/24 09:20 Height 5 ft 2 in Weight 179 lb 0.246 oz BMI 32.7 BP 140/62 H Blood Pressure Location Lt brachial Position Sitting Pulse 64 Intake Visit Reasons: 1 year f/u Intake Note: pt state that she its doing fine. 1St Grade Teacher Required: No Accompanied by: Self / Same As Patient Allergies adhesive tape Allergy (Intermediate, Verified 12/07/23 15:29) Rash paper tape Allergy (Intermediate, Uncoded 12/07/23 15:29) Blister Medication List - Last Reconciled 02/21/24 by Jonathan Braun MD aspirin (Adult Low Dose Aspirin) 81 mg PO DAILY atenolol 50 mg PO DAILY multivitamin 1 tab PO DAILY raloxifene 60 mg PO DAILY rosuvastatin (Crestor) 10 mg PO DAILY trazodone 100 mg PO BEDTIME PRN HPI Comments Details: Pleasant 68-year-old female here for first OV. She has been referred for murmur. Her echo is showing mild and PFO. She is active and quite adventueous. She has no symptoms. She is on atenolol for HTN. She takes a baby ASA. Echocardiography is showing moderate aortic stenosis. She continues to be asymptomatic on follow-up and in particular denies shortness of breath, chest pain and syncope. She was sent for repeat echocardiography which is showing synm-if-mprooudj aortic stenosis. She returns for follow-up today. She has been doing well. She has no chest pain or shortness of breath. 02/21/24: She returns for follow-up. She had repeat echocardiography recently which showing moderate aortic valve stenosis. She is denying any dizziness or lightheadedness. No shortness of breath. She had 1 episode of chest discomfort 2 weeks ago when she was laying in bed with lasted for 20 minutes. She is saying it was a pain in the chest and she could not describe it differently. She has not had any further chest discomforts since then. She has been active and exercises regularly without any exertional symptoms. The pressure is elevated in the office. [facility] Medical History (Updated 12/07/23 @ 16:17 by Sandra Wood MD) Abnormal mammogram of left breast Elevated LFTs Postmenopausal Atypical lobular hyperplasia of left breast Hyperglycemia Murmur Situational anxiety Hyperlipidemia Chronic back pain Postmenopausal Annual physical exam Hypertension Aortic stenosis Surgical History History of lumpectomy of left breast S/P lumpectomy, left breast (03/02/22) Hx of repair of rotator cuff H/O colonoscopy History of back surgery Hx of tonsillectomy Family History Mother CVD (cardiovascular disease) Breast cancer, Onset Age: 60 Father Parkinson disease Brother Prostate cancer Sister Breast cancer, Onset Age: 50 Social History Household Members: Spouse Housing: House Are you a primary assisted living care manager to a significant other at home: No Do you presently have visiting nurse or other home services: No Alcohol intake: never Patient Tobacco Use Status: Never used Tobacco e-Cigarette/Vaping Use: Never Used service: No Current occupational status: retired Cognitive needs: No Hearing needs: No Vision needs: Yes Female Reproductive History Menstrual Age of Menarche: 14 Review of Systems Const Denies chills, Denies fatigue, Denies fever(s), Denies frequent falls, Denies weakness, Denies weight gain and Denies weight loss ENT Denies dizziness Card Denies chest pain, Denies leg edema, Denies lightheadedness, Denies palpitations, Denies dyspnea and Denies dyspnea on exertion Resp Denies cough, Denies dyspnea and Denies dyspnea on exertion GI Denies hematochezia Musc Denies abnormal gait, Denies muscle weakness, Denies numbness, Denies radiating pain into limb and Denies tingling Neuro Denies abnormal gait, Denies dizziness, Denies frequent falls, Denies numbness, Denies tingling and Denies weakness Endo Denies fatigue and Denies palpitations Physical Exam Vital Signs: Last Vital Signs Pulse 64 02/21/24 09:20 BP 140/62 H 02/21/24 09:20 BMI result Body Mass Index 32.7 GENERAL APPEARANCE: in no acute distress, well developed, well nourished. NECK/THYROID: no carotid bruit, no jugular venous distention. SKIN: no suspicious lesions, warm and dry. HEART: systolic murmur aortic area, preserved 2nd heart sound.. LUNGS: clear to auscultation bilaterally. ABDOMEN: normal, bowel sounds present, soft, nontender, nondistended. EXTREMITIES: no clubbing, cyanosis, or edema. PERIPHERAL PULSES: equal. NEUROLOGIC: nonfocal, alert and oriented. Office Procedures EKG Details: Sinus rhythm 64 beats per minute, normal EKG, QTC 435 milliseconds [id number], Complete Assessment & Plan Assessment & Plan (1) Aortic stenosis: Comment: Echo 10/2020 mild-mod , Echo 2022 mod , 1cm2, f/u [facility] cardiology Code(s): I35.0 - Nonrheumatic aortic (valve) stenosis Category: Medical (2) Hypertension: Code(s): I10 - Essential (primary) hypertension Category: Medical Plan 68-year-old female who is here for follow-up. She is background history of aortic valve stenosis. By echocardiography performed February 12, 2024 she has moderate aortic valve stenosis. Blood pressure is elevated and I am adding amlodipine 2.5 mg daily. She has follow-up appointment with her primary care physician in the coming weeks and will have repeat blood pressure check there. One episode of chest discomfort laying down in bed 2-3 weeks ago. She has not had any exertional symptoms since then. She has been active. I have advised her to monitor for now. If he has any recurrent discomfort that we will consider stress testing. For moderate aortic valve stenosis, we will repeat echocardiography in a year. Follow-up with us in 6 months. Thank you for allowing me to participate in the care of your patient. Please feel free to contact me if you have any questions. Medications: New amlodipine 2.5 mg PO DAILY 60 tabs 3RF I10 - Essential (primary) hypertension Coding Level of Care Code Est Pt Level 4 (05691) Diagnoses Aortic stenosis I35.0 Hypertension I10 CPT Codes EKG - CPT: 33111-[id number], Complete ([id number])
== END 2024-02-21 09:52 | disposition home or self-care (01) ==
PROVIDERS: PCP Internal Medicine; Visit Provider Internal Medicine Cardiovascular Disease
DX: I35.0 Nonrheumatic aortic (valve) stenosis (principal); I10 Essential (primary) hypertension
CPT/HCPCS: 93010; 99214

== ENCOUNTER → 2024-02-21 09:08 | Outpatient (BNVA) | payer MEDICARE, BC, SELFPAY | PROVIDERS: PCP Internal Medicine; Visit Provider Internal Medicine Cardiovascular Disease | DX: I35.0 Nonrheumatic aortic (valve) stenosis (principal); I10 Essential (primary) hypertension | CPT/HCPCS: 93005; 99212 ==

== ENCOUNTER 2024-03-11 13:57 | Outpatient (AMB) | payer MEDICARE, BC, SELFPAY ==
[2024-03-11 13:57] VITALS: BP 138/66; PULSE 68; O2SAT 97; BMI 32.7
--- NOTE | 2024-03-11 13:57 | A.OFFPC_ITS ---
Vital Signs 03/11/24 13:57 Height 5 ft 2 in Weight 81.193 kg BMI 32.7 BP 138/66 Blood Pressure Location Lt brachial Position Sitting Pulse 68 Pulse Source Pulse Oximeter Pulse Oximetry (%) 97 Oxygen Delivery Method Room Air Intake Visit Reasons: DM, cholesterol Exhibitions Curator Required: No Allergies adhesive tape Allergy (Intermediate, Verified 03/11/24 13:58) Rash paper tape Allergy (Intermediate, Uncoded 03/11/24 13:58) Blister Tobacco use date assessed: 03/11/24 Fall risk assessment: No Falls in past year Last assessed Fall Risk: 03/11/24 Dental Screening Dental Screen Date: 12/07/23 HPI DM, cholesterol HPI Details 68-year-old obese female with controlled diabetes mellitus hypertension hypercholesterolemia history of atypical ductal hyperplasia of the left breast(left breast lumpectomy) aortic stenosis fatty liver osteopenia and insomnia last seen in November 2023. Patient is up-to-date with colonoscopy March 2022 due for mammogram and bone density. Echocardiogram moderate aortic stenosis at 1.15 cm. Review of the notes in 02/21/2024 was seen by Cardiology amlodipine 2.5 mg once a day added. For the atypical ductal hyperplasia January 2022 patient follows up with the surgeon and has been started on raloxifene [facility] Medical History (Updated 03/11/24 @ 14:32 by Sandra Wood MD) Impaired glucose tolerance Abnormal mammogram of left breast Elevated LFTs Postmenopausal Atypical lobular hyperplasia of left breast Hyperglycemia Murmur Situational anxiety Hyperlipidemia Chronic back pain Postmenopausal Annual physical exam Hypertension Aortic stenosis Surgical History History of lumpectomy of left breast S/P lumpectomy, left breast (03/02/22) Hx of repair of rotator cuff H/O colonoscopy History of back surgery Hx of tonsillectomy Family History Mother CVD (cardiovascular disease) Breast cancer, Onset Age: 60 Father Parkinson disease Brother Prostate cancer Sister Breast cancer, Onset Age: 50 Social History Household Members: Spouse Housing: House Are you a primary out of school hours care worker to a significant other at home: No Do you presently have visiting nurse or other home services: No Alcohol intake: never Patient Tobacco Use Status: Never used Tobacco e-Cigarette/Vaping Use: Never Used service: No Current occupational status: retired Cognitive needs: No Hearing needs: No Vision needs: Yes Female Reproductive History Menstrual Age of Menarche: 14 Questionnaire Thrive Questionnaire Date Thrive assessed: 12/07/23 AUDIT C Alcohol Use Questionnaire (AUDIT-C) 1. How often do you have a drink containing alcohol?: Never 3. How often do you have six or more drinks on one occasion?: Never Total Score: 0 AIYANA-7 AMB Questionnaire AIYANA-7 Date AIYANA - 7 assessed: 03/11/24 Source: Developed by Drs. Yoseph Herbert, Twyla Horne, Artemio Cali and colleagues, with an educational kika from [employer]. Physical exam (Primary Care) Vital Signs: Last Vital Signs Pulse 68 03/11/24 13:57 BP 138/66 03/11/24 13:57 Pulse Ox 97 03/11/24 13:57 Oxygen Delivery Method Room Air 03/11/24 13:57 BMI result Body Mass Index 32.7 Tobacco/Smoking Status: Tobacco use Status Tobacco use date assessed 03/11/24 03/11/24 13:58 Patient Tobacco Use Status Never used Tobacco 03/11/24 13:58 e-Cigarette/Vaping Use Never Used 03/11/24 13:58 Thrive Assessment: Date of Thrive Assessment Date Thrive assessed 12/07/23 03/11/24 13:58 Const General: alert; No acute distress Eyes Conjunctivae: conjunctivae normal Resp Auscultation: clear to auscultation bilaterally Cardio Rate: regular rate Rhythm: regular rhythm GI Inspection: Yes normal to inspection Extrem General: Yes normal to inspection and No edema Results AMB Hemoglobin A1c AMB Hemoglobin A1c 6.2 % Last Edit by DEANDRE Billings on 03/11/24 14:12 Immunizations pneumoc 20-leonard conj-dip cr(PF) 0.5 mL IM syringe Performing Provider: Sandra Wood MD Performing Location: [facility] Administered by: Dang Gerard CMA on 03/11/24 14:44 Dose Route Admin Location Dispensed Lot Number Expiration Date [facility] Master [employer] 0.5 mL IM Left Deltoid 0.5 mL [id number] 02/20/25 7044-4867-81 [employer] VIS Given Date VIS Provided VIS Publication Date 03/11/24 Single Vaccine 21 Eligibility Eligibility Date Funding Source Not [facility] Eligible 03/11/24 Private Results Reviewed Results Reviewed: Laboratory Last Values Hgb A1c (Clinic) 6.2 % (4.0-6.0) H 03/11/24 13:59 Assessment and Plan Assessment & Plan (1) Type 2 diabetes mellitus with hyperglycemia: Comment: Dr. Bahena Code(s): E11.65 - Type 2 diabetes mellitus with hyperglycemia Plan: Decrease the amount of carbohydrate intake, pasta, bread, rice and potatoes are all sugar and that is aside from all the sweet stuff, remember that fruits are good but they are Sweet also. Hemoglobin A1c goal of less than 7.0 patient is diet controlled (2) Osteopenia: Comment: 08/2021, August 2023 normal Code(s): M85.80 - Other specified disorders of bone density and structure, unspecified site Plan: Bone density August 2023. On raloxifene (3) Fatty liver: Comment: Liver ultrasound showed fatty liver and normal gallbladder 08/13 Code(s): K76.0 - Fatty (change of) liver, not elsewhere classified Plan: Low-fat diet and exercise (4) Aortic stenosis: Comment: Echo 10/2020 mild-mod , Echo 2022 mod , 1cm2, [place] [facility] [place] January 2024 1.16 cm2 Code(s): I35.0 - Nonrheumatic aortic (valve) stenosis Plan: Continue to follow-up aortic stenosis moderate 1.16 cm squared (5) Hypertension: Code(s): I10 - Essential (primary) hypertension Plan: Continue with blood pressure medication. Decrease salt intake and exercise on atenolol 50 mg once a day amlodipine 2.5 mg once a day recently added by Cardiology (6) Atypical ductal hyperplasia of left breast: Comment: Started on Raloxifene 03/13, f/[place] [facility] [place] Code(s): N60.92 - Unspecified benign mammary dysplasia of left breast Plan: Continue to follow-up with the surgeon and up-to-date with mammogram (7) Hyperlipidemia: Code(s): E78.5 - Hyperlipidemia, unspecified Plan: Avoid fried foods, chicken skin, eggs, butter margarine, pastries and meat. Be it pork or beef they have a lot of cholesterol LDL goal of less than 100 and triglyceride of less than 150. On rosuvastatin 10 mg once a day Orders: Orders AMB Hemoglobin A1c Today E11.65 - Type 2 diabetes mellitus with hyperglycemia Pneumococcal 20 Immunization Today Z23 - Encounter for immunization Medications: New pneumoc 20-leonard conj-dip cr(PF) 0.5 mL IM ONCE 0.5 mL 0RF Z23 - Encounter for immunization Coding Level of Care Code Est Pt Level 4 (77634) Diagnoses Type 2 diabetes mellitus with hyperglycemia E11.65 Osteopenia M85.80 Fatty liver K76.0 Aortic stenosis I35.0 Hypertension I10 Atypical ductal hyperplasia of left breast N60.92 Hyperlipidemia E78.5
== END 2024-03-11 14:51 | disposition home or self-care (01) ==
PROVIDERS: PCP Internal Medicine; Visit Provider Internal Medicine
DX: E11.65 Type 2 diabetes mellitus with hyperglycemia (principal); M85.80 Other specified disorders of bone density and structure, unspecified site; K76.0 Fatty (change of) liver, not elsewhere classified; I35.0 Nonrheumatic aortic (valve) stenosis; I10 Essential (primary) hypertension; N60.92 Unspecified benign mammary dysplasia of left breast; E78.5 Hyperlipidemia, unspecified; Z23 Encounter for immunization
CPT/HCPCS: 83036; 90471; 90677; 99214

== ENCOUNTER 2024-05-16 13:43 | Outpatient (AMB) | payer MEDICARE, BC, SELFPAY ==
--- NOTE | 2024-05-16 13:43 | A.OFFVIS_ITS ---
Vital Signs 3 05/16/24 13:49 Height 5 ft 2 in Weight 181 lb 6 oz BMI 33.2 BP 146/84 H Blood Pressure Location Lt brachial Position Sitting Pulse 72 Intake Visit Reasons: 6m breast exam Intake Note: Patient is seen in office for 6 month follow up visit, breast exam. 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 She was found to have a left breast grouped punctate calcifications in the 1 o'clock position of to be suspicious for malignancy. Stereotactic guided core biopsy on 02/11/2022 revealed atypical lobular hyperplasia, columnar cell change and hyperplasia without atypia, with microcalcifications, benign lobules with microcalcifications, lobular atrophy and stromal fibrosis. She underwent lumpectomy with needle localization on 03/02/2022. Pathology confirmed atypical lobular hyperplasia (multifocal) and atypical ductal hyperplasia (single focus). Her postoperative course was complicated by a seroma require needle aspiration. She was evaluated by Dr. Brandt and started on raloxifene. Her family history is significant for her mother developing breast cancer in her 60s as well as other sister developing breast cancer in her 50s. Her sister subsequently developed a recurrence 10 years later while in her 60s and subsequently required a mastectomy. The patient is and she did not breast feed her child. Her most recent mammogram of her most recent mammogram dated 12/14/2023 revealed no mammographic evidence of malignancy (BI-RADS 2). [facility] Medical History Impaired glucose tolerance Abnormal mammogram of left breast Elevated LFTs Postmenopausal Atypical lobular hyperplasia of left breast Hyperglycemia Murmur Situational anxiety Hyperlipidemia Chronic back pain Postmenopausal Annual physical exam Hypertension Aortic stenosis Surgical History History of lumpectomy of left breast S/P lumpectomy, left breast (03/02/22) Hx of repair of rotator cuff H/O colonoscopy History of back surgery Hx of tonsillectomy Family History Mother CVD (cardiovascular disease) Breast cancer, Onset Age: 60 Father Parkinson disease Brother Prostate cancer Sister Breast cancer, Onset Age: 50 Social History Household Members: Spouse Housing: House Are you a primary healthcare specialist to a significant other at home: No Do you presently have visiting nurse or other home services: No Alcohol intake: never Patient Tobacco Use Status: Never used Tobacco e-Cigarette/Vaping Use: Never Used service: No Current occupational status: retired Cognitive needs: No Hearing needs: No Vision needs: Yes Female Reproductive History Menstrual Age of Menarche: 14 Review of Systems Const Denies chills, Denies fever(s), Denies headache(s) and Denies poor appetite ENT Denies dizziness and Denies headache(s) Card Denies chest pain, Denies rapid heart rate, Denies palpitations and Denies slow heart rate Resp Denies chest congestion, Denies cough, Denies pain on inspiration and Denies wheezing GI Denies abdominal pain, Denies bloating, Denies change in stool character, Denies constipation, Denies diarrhea, Denies nausea, Denies vomiting and Denies hematemesis Denies nipple discharge Musc Denies back pain, Denies arthralgias, Denies joint swelling and Denies numbness Skin/Breast Denies breast skin changes, Denies breast pain, Denies breast mass, Denies change in pigmentation, Denies nipple discharge, Denies erythema and Denies rash Neuro Denies dizziness, Denies headache(s) and Denies numbness Psych Denies anxiety and Denies depression Endo Denies palpitations Sigifredo/Lymph Denies easy bleeding, Denies easy bruising and Denies lymphadenopathy Aller/Immun Denies wheezing Physical Exam Const General: no acute distress Neck Neck: Yes normal visual inspection and Yes no lymphadenopathy Chest Other: Left breast: Well-healed incision in the upper outer quadrant without redness or discharge. Scar is much softer with no seroma/hematoma. No new palpable mass, skin change, nipple discharge, or enlarged lymph nodes. Right breast: No skin change, nipple discharge, palpable mass, or enlarged lymph nodes. Chest/axillae images: 2 1. Well-healed incision upper outer quadrant left breast Resp Effort & Inspection: normal respiratory effort Skin General skin exam: no rashes or lesions noted Assessment & Plan Assessment & Plan (1) Atypical ductal hyperplasia of left breast: Comment: Started on Raloxifene 03/13, f/u [facility] oncology Code(s): N60.92 - Unspecified benign mammary dysplasia of left breast Category: Medical (2) Atypical lobular hyperplasia of left breast: Code(s): N60.92 - Unspecified benign mammary dysplasia of left breast Category: Medical Plan Patient returns for follow-up examination following left breast lumpectomy for atypical lobular hyperplasia and atypical ductal hyperplasia. She was evaluated by Dr. Brandt and started on antiestrogen therapy. Examination today reveals no suspicious findings in either breast. Her most recent mammogram of 12/14/2023 revealed no suspicious findings in either breast (BI-RADS 2). I recommended a follow-up examination in 6 months. She is welcome to call sooner for any new concerns. Coding Level of Care Code Est Pt Level 3 (36077) Diagnoses Atypical ductal hyperplasia of left breast N60.92 Atypical lobular hyperplasia of left breast N60.92
[2024-05-16 13:49] VITALS: BP 146/84; PULSE 72; BMI 33.2
== END 2024-05-16 13:59 | disposition home or self-care (01) ==
PROVIDERS: PCP Internal Medicine; Visit Provider Surgery
DX: N60.92 Unspecified benign mammary dysplasia of left breast (principal)
CPT/HCPCS: 99213

== ENCOUNTER → 2024-05-16 13:43 | Outpatient (BNVA) | payer MEDICARE, BC, SELFPAY | PROVIDERS: PCP Internal Medicine; Visit Provider Surgery | DX: N60.92 Unspecified benign mammary dysplasia of left breast (principal) | CPT/HCPCS: 99212 ==

== ENCOUNTER 2024-07-05 11:02 | Outpatient (AMB) | payer MEDICARE, BC, SELFPAY ==
[2024-07-05 11:05] VITALS: BP 142/76; PULSE 74; O2SAT 97; BMI 31.8
--- NOTE | 2024-07-05 11:05 | MHC.PC.OV ---
Vital Signs 07/05/24 11:05 Height 5 ft 2 in Weight 174 lb BMI 31.8 BP 142/76 H Blood Pressure Location Lt brachial Position Sitting Pulse 74 Pulse Source Pulse Oximeter Pulse Oximetry (%) 97 Oxygen Delivery Method Room Air Intake Visit Reasons: Bronchitis Allergies adhesive tape Allergy (Intermediate, Verified 07/05/24 11:06) Rash paper tape Allergy (Intermediate, Uncoded 07/05/24 11:06) Blister Medication List - Last Reconciled 07/05/24 by Sandra Wood MD amlodipine 2.5 mg PO DAILY aspirin (Adult Low Dose Aspirin) 81 mg PO DAILY atenolol 50 mg PO DAILY azithromycin (Zithromax) For 250 mg dose pack: take 500 mg today (day 1), then 250 mg for 4 days (days 2-5) PO multivitamin 1 tab PO DAILY raloxifene 60 mg PO DAILY rosuvastatin (Crestor) 10 mg PO DAILY trazodone 100 mg PO BEDTIME PRN Tobacco use date assessed: 03/11/24 Fall risk assessment: No Falls in past year Last assessed Fall Risk: 07/05/24 Dental Screening Dental Screen Date: 12/07/23 HPI Bronchitis HPI Details 69-year-old obese female with diabetes mellitus hypertension hypercholesterolemia with a history of atypical ductal hyperplasia of the left breast. Mammogram is 01/10/2024. Called in for congestion cough. 3 days ago myalgia, fever, chills then cough wheezing, bringing up clear secretion. [facility] Medical History Impaired glucose tolerance Abnormal mammogram of left breast Elevated LFTs Postmenopausal Atypical lobular hyperplasia of left breast Hyperglycemia Murmur Situational anxiety Hyperlipidemia Chronic back pain Postmenopausal Annual physical exam Hypertension Aortic stenosis Surgical History History of lumpectomy of left breast S/P lumpectomy, left breast (03/02/22) Hx of repair of rotator cuff H/O colonoscopy History of back surgery Hx of tonsillectomy Family History Mother CVD (cardiovascular disease) Breast cancer, Onset Age: 60 Father Parkinson disease Brother Prostate cancer Sister Breast cancer, Onset Age: 50 Social History Household Members: Spouse Housing: House Are you a primary day care teacher to a significant other at home: No Do you presently have visiting nurse or other home services: No Alcohol intake: never Patient Tobacco Use Status: Never used Tobacco Tobacco use type: Cigarette e-Cigarette/Vaping Use: Never Used Second Hand Smoke Exposure: No service: No Current occupational status: retired Cognitive needs: No Hearing needs: No Vision needs: Yes Female Reproductive History Menstrual Age of Menarche: 14 Questionnaire Thrive Questionnaire Date Thrive assessed: 12/07/23 AIYANA-7 AMB Questionnaire AIYANA-7 Date AIYANA - 7 assessed: 03/11/24 Source: Developed by Drs. Yoseph Herbert, Twyla Horne, Artemio Cali and colleagues, with an educational kika from [employer]. Physical exam (Primary Care) Vital Signs: Last Vital Signs Pulse 74 07/05/24 11:05 BP 142/76 H 07/05/24 11:05 Pulse Ox 97 07/05/24 11:05 Oxygen Delivery Method Room Air 07/05/24 11:05 BMI result Body Mass Index 31.8 Tobacco/Smoking Status: Tobacco use Status Tobacco use date assessed 03/11/24 07/05/24 11:09 Patient Tobacco Use Status Never used Tobacco 07/05/24 11:09 Tobacco use type Cigarette 07/05/24 11:09 e-Cigarette/Vaping Use Never Used 07/05/24 11:09 Thrive Assessment: Date of Thrive Assessment Date Thrive assessed 12/07/23 07/05/24 11:09 Const General: alert; No acute distress Eyes Conjunctivae: conjunctivae normal Resp Other: Crackles noted but with rhonchi bilateral on cough Cardio Other: 1/6 systolic murmur noted on the left lateral sternal border Rate: regular rate Rhythm: regular rhythm Heart sounds: Murmur heart sound present GI Inspection: Yes normal to inspection Extrem General: Yes normal to inspection and No edema Assessment and Plan Assessment & Plan (1) Aortic stenosis: Comment: Echo 10/2020 mild-mod , Echo 2022 mod , 1cm2, [place] [facility] 1.16 cm2 Code(s): I35.0 - Nonrheumatic aortic (valve) stenosis Plan: Noted to have moderate aortic stenosis and will continue to monitor and follow-up (2) Acute bronchitis: Code(s): J20.9 - Acute bronchitis, unspecified Plan: Antibiotics sent in advised to increase oral fluids. Mucinex for productive cough and Delsym for dry cough. Medications: New azithromycin (Zithromax) For 250 mg dose pack: take 500 mg today (day 1), then 250 mg for 4 days (days 2-5) PO 6 tabs 0RF J20.9 - Acute bronchitis, unspecified Coding Level of Care Code Est Pt Level 3 (68293) Diagnoses Aortic stenosis I35.0 Acute bronchitis J20.9
== END 2024-07-05 13:43 | disposition home or self-care (01) ==
LOC: HO.HMGH 11:02
PROVIDERS: PCP Internal Medicine; Visit Provider Internal Medicine
DX: I35.0 Nonrheumatic aortic (valve) stenosis (principal); J20.9 Acute bronchitis, unspecified
CPT/HCPCS: 99213

== ENCOUNTER 2024-08-01 11:14 | Outpatient (REF) | payer MEDICARE, BC, SELFPAY ==
--- NOTE | ~2024-08-01 | XR_ITS ---
EXAMINATION: XR CHEST CLINICAL INFORMATION: Acute bronchitis. Persistent cough. COMPARISON: Most recent chest radiograph dated 07/14/2016. TECHNIQUE: Frontal view of the chest was obtained. FINDINGS: The lungs are clear. The cardiomediastinal silhouette is normal in size. There is no pleural effusion or pneumothorax. No acute osseous abnormality. XR/XR chest 1V IMPRESSION: No acute cardiopulmonary findings. Electronically signed by: Brian Mallory MD 08/01/2024 03:31 PM EDT
== END 2024-08-01 11:15 | disposition home or self-care (01) ==
LOC: HO.XRAY 11:14
PROVIDERS: PCP Internal Medicine; Visit Provider Internal Medicine
DX: J20.9 Acute bronchitis, unspecified (principal)
CPT/HCPCS: 71045

== ENCOUNTER 2024-09-16 14:11 | Outpatient (AMB) | payer MEDICARE, BC, SELFPAY ==
[2024-09-16 14:18] VITALS: BP 130/78; PULSE 68; O2SAT 97; BMI 31.8
--- NOTE | 2024-09-16 14:18 | MHC.PC.OV ---
Vital Signs 09/16/24 14:18 Height 5 ft 2 in Weight 174 lb BMI 31.8 BP 130/78 Blood Pressure Location Lt brachial Position Sitting Pulse 68 Pulse Source Pulse Oximeter Pulse Oximetry (%) 97 Oxygen Delivery Method Room Air Intake Visit Reasons: , HTN Allergies adhesive tape Allergy (Intermediate, Verified 09/16/24 14:18) Rash paper tape Allergy (Intermediate, Uncoded 09/16/24 14:18) Blister Medication List - Last Reconciled 09/16/24 by Sandra Wood MD amlodipine 2.5 mg PO DAILY aspirin (Adult Low Dose Aspirin) 81 mg PO DAILY atenolol 50 mg PO DAILY multivitamin 1 tab PO DAILY raloxifene 60 mg PO DAILY rosuvastatin (Crestor) 10 mg PO DAILY trazodone 100 mg PO BEDTIME PRN Tobacco use date assessed: 03/11/24 Fall risk assessment: No Falls in past year Last assessed Fall Risk: 09/16/24 Dental Screening Dental Screen Date: 12/07/23 HPI , HTN HPI Details 69-year-old obese female with a history of hypercholesterolemia hypertension atypical ductal hyperplasia of the breast left aortic stenosis and diabetes mellitus coming in for follow-up. Patient's mammogram is up-to-date bone density is up-to-date and colonoscopy up-to-date. With the atypical ductal hyperplasia patient follows up with Hematology-Oncology seen in September 09 patient is on raloxifene 03/11/2022 had lumpectomy done in February 2022 and will and it in September. Bone density scheduled. taking off raloxifene due to the hot flashes. complains of having productive cough in am and throughout the day, no fevers, PFSH Medical History Impaired glucose tolerance Abnormal mammogram of left breast Elevated LFTs Postmenopausal Atypical lobular hyperplasia of left breast Hyperglycemia Murmur Situational anxiety Hyperlipidemia Chronic back pain Postmenopausal Annual physical exam Hypertension Aortic stenosis Surgical History History of lumpectomy of left breast S/P lumpectomy, left breast (03/02/22) Hx of repair of rotator cuff H/O colonoscopy History of back surgery Hx of tonsillectomy Family History Mother CVD (cardiovascular disease) Breast cancer, Onset Age: 60 Father Parkinson disease Brother Prostate cancer Sister Breast cancer, Onset Age: 50 Social History Household Members: Spouse Housing: House Are you a primary acute care clinical nurse specialist to a significant other at home: No Do you presently have visiting nurse or other home services: No Alcohol intake: never Patient Tobacco Use Status: Never used Tobacco Tobacco use type: Cigarette e-Cigarette/Vaping Use: Never Used Second Hand Smoke Exposure: No service: No Current occupational status: retired Cognitive needs: No Hearing needs: No Vision needs: Yes Female Reproductive History Menstrual Age of Menarche: 14 Questionnaire PHQ-9 Over the last 2 weeks, how often have you been bothered by any of the following problems? 1. Little interest or pleasure in doing things: not at all 2. Feeling down, depressed, or hopeless: not at all 3. Trouble falling or staying asleep, or sleeping too much: not at all 4. Feeling tired or having little energy: not at all 5. Poor appetite or overeating: not at all 6. Feeling bad about yourself - or that you are a failure or have let yourself or your family down: not at all 7. Trouble concentrating on things, such as reading the newspaper or watching television: not at all 8. Moving or speaking so slowly that other people could have noticed. Or the opposite - being so fidgety or restless that you have been moving around a lot more than usual: not at all 9. Thoughts that you would be better off or of hurting yourself in some way: not at all Total score: 0 Depression Screening Interpretation: Negative Depression Screening Done: Yes 47605 - PHQ-9 Billing: Yes Source: Developed by Drs. Yoseph Herbert, Twyla Horne, Artemio Cali and colleagues, with an educational kika from [employer]. Thrive Questionnaire Date Thrive assessed: 12/07/23 AUDIT C Alcohol Use Questionnaire (AUDIT-C) 1. How often do you have a drink containing alcohol?: Never 3. How often do you have six or more drinks on one occasion?: Never Total Score: 0 AIYANA-7 AMB Questionnaire AIYANA-7 Date AIYANA - 7 assessed: 03/11/24 Source: Developed by Drs. Yoseph Herbert, Twyla Horne, Artemio Cali and colleagues, with an educational kika from [employer]. Physical exam (Primary Care) Vital Signs: Last Vital Signs Pulse 68 09/16/24 14:18 BP 130/78 09/16/24 14:18 Pulse Ox 97 09/16/24 14:18 Oxygen Delivery Method Room Air 09/16/24 14:18 BMI result Body Mass Index 31.8 Tobacco/Smoking Status: Tobacco use Status Tobacco use date assessed 03/11/24 09/16/24 14:19 Patient Tobacco Use Status Never used Tobacco 09/16/24 14:19 Tobacco use type Cigarette 09/16/24 14:19 e-Cigarette/Vaping Use Never Used 09/16/24 14:19 PHQ-9: PHQ-9 Score PHQ-9: Total score 0 09/16/24 14:19 Depression Screening Interpretation: Negative Thrive Assessment: Date of Thrive Assessment Date Thrive assessed 12/07/23 09/16/24 14:19 Const General: alert; No acute distress Eyes Conjunctivae: conjunctivae normal Resp Auscultation: clear to auscultation bilaterally Cardio Rate: regular rate Rhythm: regular rhythm GI Inspection: Yes normal to inspection Extrem General: Yes normal to inspection and No edema Coding Level of Care Code Est Pt Level 4 (71472) Diagnoses Type 2 diabetes mellitus with hyperglycemia, without long-term current use of insulin E11.65 Diabetes mellitus half-way insulin use: without half-way use Pure hypercholesterolemia E78.00 Hyperlipidemia type: pure hypercholesterolemia Primary hypertension I10 Hypertension type: primary hypertension Atypical ductal hyperplasia of left breast N60.92 Nonrheumatic aortic valve stenosis I35.0 Cardiac valve disease etiology: nonrheumatic Additional Codes PHQ-9 - 92236 - PHQ-9 Billing: Yes ([id number]) Assessment & Plan Assessment & Plan (1) Type 2 diabetes mellitus with hyperglycemia: Comment: Dr. 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 Hemoglobin A1c goal of less than 7.0 patient is diet controlled (2) Hyperlipidemia: Code(s): E78.5 - Hyperlipidemia, unspecified Category: Medical Qualifiers: Hyperlipidemia type: pure hypercholesterolemia Qualified Code(s): E78.00 - Pure hypercholesterolemia, unspecified Plan: Avoid fried foods, chicken skin, eggs, butter margarine, pastries and meat. Be it pork or beef they have a lot of cholesterol on rosuvastatin 10 mg once a day 10/11/2023 last tested (3) Hypertension: Code(s): I10 - Essential (primary) hypertension Category: Medical Qualifiers: Hypertension type: primary hypertension Qualified Code(s): I10 - Essential (primary) hypertension Plan: Continue with blood pressure medication. Decrease salt intake and exercise takes atenolol 50 mg once a day and amlodipine 2.5 mg once a day (4) Atypical ductal hyperplasia of left breast: Comment: Started on Raloxifene 03/13, f/u [facility] oncology Code(s): N60.92 - Unspecified benign mammary dysplasia of left breast Category: Medical Plan: Mammogram up-to-date and continue to be monitored by hematology oncology (5) Aortic stenosis: Comment: Echo 10/2020 mild-mod , Echo 2022 mod , 1cm2, f/u [facility] cardiology January 2024 1.16 cm2 Code(s): I35.0 - Nonrheumatic aortic (valve) stenosis Category: Medical Qualifiers: Cardiac valve disease etiology: nonrheumatic Qualified Code(s): I35.0 - Nonrheumatic aortic (valve) stenosis Plan: Continues to be monitored. January echocardiogram Orders: Orders Comprehensive Met. Panel Today E11.65 - Type 2 diabetes mellitus with hyperglycemia Free T4 (Free Thyroxine) Today E11.65 - Type 2 diabetes mellitus with hyperglycemia Hemoglobin A1c Today E11.65 - Type 2 diabetes mellitus with hyperglycemia Thyroid Stimulating Hormone Today E11.65 - Type 2 diabetes mellitus with hyperglycemia Vitamin B12 and Folate Today E11.65 - Type 2 diabetes mellitus with hyperglycemia Microalbumin, Random (w Creat) Today E11.65 - Type 2 diabetes mellitus with hyperglycemia AMB Hemoglobin A1c Today Z13.9 - Encounter for screening, unspecified Lipid Panel Today E11.65 - Type 2 diabetes mellitus with hyperglycemia, E78.00 - Pure hypercholesterolemia, unspecified Creatinine Urine Today E11.65 - Type 2 diabetes mellitus with hyperglycemia Vitamin D 25-OH Total Today E11.65 - Type 2 diabetes mellitus with hyperglycemia UA CC w/rflx Micro + Cult Today E11.65 - Type 2 diabetes mellitus with hyperglycemia, R30.0 - Dysuria
== END 2024-09-16 15:10 | disposition home or self-care (01) ==
PROVIDERS: PCP Internal Medicine; Visit Provider Internal Medicine
DX: E11.65 Type 2 diabetes mellitus with hyperglycemia (principal); E78.00 Pure hypercholesterolemia, unspecified; I10 Essential (primary) hypertension; N60.92 Unspecified benign mammary dysplasia of left breast; I35.0 Nonrheumatic aortic (valve) stenosis

== ENCOUNTER → 2024-09-16 14:11 | Outpatient (BNVA) | payer MEDICARE, BC, SELFPAY | PROVIDERS: PCP Internal Medicine; Visit Provider Internal Medicine | DX: E11.65 Type 2 diabetes mellitus with hyperglycemia (principal); E78.00 Pure hypercholesterolemia, unspecified; I10 Essential (primary) hypertension; N60.92 Unspecified benign mammary dysplasia of left breast; I35.0 Nonrheumatic aortic (valve) stenosis | CPT/HCPCS: 96127; 99212 ==

== ENCOUNTER 2024-09-25 09:48 | Outpatient (REF) | payer MEDICARE, BC, SELFPAY ==
[2024-09-25 13:24] LABS: Appearance Urine Clear; Color Urine Dark Yellow; Glucose Urine UA Negative (Negative); Leukocyte Esterase Urine Moderate (2+) (Negative); Nitrite Urine Negative (Negative); UMIC TRIGGER UACC YES; Urine Blood Negative (Negative); Urine Ketones Negative (Negative); Urine Protein 30 (1+) mg/dL (Neg-Trace)
[2024-09-25 13:38] LABS: Estimated Average Glucose 126 mg/dL; Hemoglobin A1C 131.5344 umol/L; Total Hemoglobin (HGBA1C) 3166.1735 umol/L
[2024-09-25 13:57] LABS: Alanine Aminotransferase 46 U/L (0-31); Alkaline Phosphatase 65 U/L (39-117); Anion Gap 10 (12-20); Aspartate Amino Transferase 63 U/L (5-31); Bacteria Urine 1+ (None Seen); Bilirubin Total 0.6 mg/dL (0.0-1.0); Blood Urea Nitrogen 8 mg/dL (9-16); Calcium 9.5 mg/dL (8.4-10.2); Carbon Dioxide 27 mmol/L (22-29); Chloride 106 mmol/L (96-108); Cholesterol 261 mg/dL (<200); Estimated Glomerular Filt Rate > 60; Free T4 (Free Thyroxine) 1.02 ng/dL (0.71-1.85); Glucose Random 135 mg/dL (60-115); HDL Cholesterol 56 mg/dL (>40); Hyaline Casts Urine 0-2 /LPF (0-2); LDL Cholesterol Calculated 158 mg/dL (<100); Potassium 4.3 mmol/L (3.3-5.1); Sodium 139 mmol/L (135-145); Thyroid Stimulating Hormone 1.21 uIU/mL (0.32-4.0); Total Protein 6.9 g/dL (6.5-8.0); Triglycerides 235 mg/dL (<150); UACC Culture Trigger YES; Vitamin D 25-OH Total 65.2 ng/mL (>30)
[2024-09-25 14:03] LABS: Folate 17.5 ng/mL (> or = 4.0); Vitamin B12 1571 pg/mL (200-900)
[2024-09-25 14:14] LABS: Creatinine Urine 188.73 mg/dL; Microalbum/Creatinine Ratio Ur 52.4 ug/mg cr (<30)
--- OUTSIDE RECORDS SUMMARY | 2024-10-01 17:19 | XMS_ITS | Patient Health Record ---
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 Role Phone Marlen Curran MD Primary Care Provider Yoseph Cartagena Unavailable [phone] ALLERGIES Allergen (clinical drug ingredient) Drug/Non Drug Allergy documented on EMR Reaction Allergy Type Onset Date Status paper tape (uncoded) Unknown Allergy Active REASON FOR REFERRAL No Information MEDICATIONS Medication SIG (Take, Route, Frequency, Duration) Notes Start Date End Date Status Atenolol 50 MG 1 tablet Orally Once a day Active Vitamin D (Cholecalciferol) 25 MCG (1000 UT) 1 capsule Orally Once a day for 30 day(s) Active Vitamin E Beauty 49812 UNIT/52ML as directed Externally Activ e Multi Vitamin/Minerals 1 1 Orally QD Active Aspir-81 81 MG 1 tablet Orally Once a day Active Fish Oil 1000 MG 1 capsule Orally Onc e a day Active IMMUNIZATIONS Vaccine Route Administration Date Status Comme nts Flu vaccine no Preserv 3 and > Unknown 08/03/2016 Admin istered Influenza Unknown 08/11/2021 Administered SOCIAL HISTORY Sex Assigned At : Social History Observation Description Sex Assigned At Unknown PROBLEMS Problem Type ICD Code Onset Dates Problem Status W/U Status Risk SNOMED Code Notes Problem Encounter for screening for malignant neoplasm of colon (Z12.11) Active confirmed 018903899 Problem History of adenomatous polyp of colon (Z86.010) Active confirmed 673639948 Problem Hypertension (I10) Active confirmed 42433984 Problem Encounter for screening for malignant neoplasm of rectum (Z12.12) Active confirmed Screening fo r malignant neoplasm of rectum (610697701) Problem Elevated liver enzymes (R74.8) Active confirmed 014204983 Problem Fatty liver (K76.0) Active confirmed 412718994 Problem Family history of colon cancer (Z80.0) Active confirmed 529744290 Problem Long-term use of aspirin therapy (Z79.82) Active confirmed 941441240 Problem Diverticulosis of colon (K57.30) Active confirmed Diverticulosi s of colon (606849104) PLAN OF TREATMENT Pending Test Test Name Order Date COLONOSCOPY AND BIOPSY 06/28/2011 LIVER PROFILE 10/13/2016 MITOCHONDRIAL AB 10/13/2016 SMOOTH MUSCLE ANTIBODIES 10/13/2016 Future Test Test Name Order Date COLONOSCOPY 10/13/2016 COLONOSCOPY 02/23/2022 Insurance Providers Payer Name Payer Address Payer Phone Subscriber Number Group Number Insured Name Patient Relationship to Insured Coverage Start Date Coverage End Date MEDICARE OF [place] [address] [place] [address] [id number] PETE SHAFFER Self - patient is the insured [facility] [address] [place], [place] [id number] PETE SHAFFER Self - patient is the insured MEDICAL (GENERAL) HISTORY Medical History History ICD Code Denies CT,DM,CVA,Lung disease,renal dise ase Colonoscopy in 2005 and 2010 --colonoscopy in 2005 was negative; and colonoscopy in 2010 revealed small tubular adenomas that were removed, as well as some diverticulosis and internal hemorrhoids EGD in 1996--no esophagitis or Crews's esophagus On Atenolol for a heart murmur Elevated LFT's in 2015--negative w/u--pr obably fatty liver Negative colonoscopy in 11/2016 Surgical History Surgery Date(Month/Year) Back surgery Tubal ligation Right rotator cuff tear repair Left-breast lumpectomy scheduled for 02/20
== END 2024-09-25 09:49 | disposition home or self-care (01) ==
LOC: HO.HMGCLDS 09:48
PROVIDERS: PCP Internal Medicine; Visit Provider Internal Medicine
DX: E11.65 Type 2 diabetes mellitus with hyperglycemia (principal); E78.00 Pure hypercholesterolemia, unspecified; R30.0 Dysuria
CPT/HCPCS: 36415; 80053; 80061; 81001; 81003; 82043; 82306; 82570; 82607; 82746; 83036; 84439; 84443; 87086; 87147

== ENCOUNTER 2024-10-29 12:53 | Outpatient (AMB) | payer MEDICARE, BC, SELFPAY ==
--- NOTE | 2024-10-29 13:07 | MHC.OFFVIS ---
Vital Signs 10/29/24 13:12 Height 5 ft 2 in Weight 177 lb BMI 32.4 BP 172/76 H Blood Pressure Location Lt brachial Position Sitting Pulse 84 Intake Visit Reasons: 6m breast exam Intake Note: Patient is seen in office for 6 month follow up visit, breast exam. Pt c/o: no changes since last visit mm:12/14/23 Yarder Required: No [place] Program Coordinator: Brownfield Program Coordinator Present Accompanied by: Self / Same As Patient Allergies adhesive tape Allergy (Intermediate, Verified 10/29/24 13:08) Rash paper tape Allergy (Intermediate, Uncoded 10/29/24 13:08) Blister Medication List - Last Reconciled 10/29/24 by Dimas Rubin MD amlodipine 2.5 mg PO DAILY aspirin (Adult Low Dose Aspirin) 81 mg PO DAILY atenolol 50 mg PO DAILY multivitamin 1 tab PO DAILY raloxifene 60 mg PO DAILY rosuvastatin (Crestor) 10 mg PO DAILY trazodone 100 mg PO BEDTIME PRN HPI Comments Details: 69-year-old female patient returning for a routine breast examination. She was found to have a left breast grouped punctate calcifications in the 1 o'clock position of to be suspicious for malignancy. Stereotactic guided core biopsy on 02/11/2022 revealed atypical lobular hyperplasia, columnar cell change and hyperplasia without atypia, with microcalcifications, benign lobules with microcalcifications, lobular atrophy and stromal fibrosis. She underwent lumpectomy with needle localization on 03/02/2022. Pathology confirmed atypical lobular hyperplasia (multifocal) and atypical ductal hyperplasia (single focus). Her postoperative course was complicated by a seroma require needle aspiration. She was evaluated by Dr. Brandt and started on raloxifene. She reports hot flashes associated with this medication. Her family history is significant for her mother developing breast cancer in her 60s as well as other sister developing breast cancer in her 50s. Her sister subsequently developed a recurrence 10 years later while in her 60s and subsequently required a mastectomy. The patient is and she did not breast feed her child. Her most recent mammogram of her most recent mammogram dated 12/14/2023 revealed no mammographic evidence of malignancy (BI-RADS 2). She is scheduled for follow-up mammogram on 02/07/2025. [facility] Medical History Impaired glucose tolerance Abnormal mammogram of left breast Elevated LFTs Postmenopausal Atypical lobular hyperplasia of left breast Hyperglycemia Murmur Situational anxiety Hyperlipidemia Chronic back pain Postmenopausal Annual physical exam Hypertension Aortic stenosis Surgical History History of lumpectomy of left breast S/P lumpectomy, left breast (03/02/22) Hx of repair of rotator cuff H/O colonoscopy History of back surgery Hx of tonsillectomy Family History Mother CVD (cardiovascular disease) Breast cancer, Onset Age: 60 Father Parkinson disease Brother Prostate cancer Sister Breast cancer, Onset Age: 50 Social History Household Members: Spouse Housing: House Are you a primary home care chaplain to a significant other at home: No Do you presently have visiting nurse or other home services: No Alcohol intake: never Patient Tobacco Use Status: Never used Tobacco Tobacco use type: Cigarette e-Cigarette/Vaping Use: Never Used Second Hand Smoke Exposure: No service: No Current occupational status: retired Cognitive needs: No Hearing needs: No Vision needs: Yes Female Reproductive History Menstrual Age of Menarche: 14 Review of Systems Const Denies chills, Denies fever(s), Denies headache(s) and Denies poor appetite ENT Denies dizziness and Denies headache(s) Card Denies chest pain, Denies rapid heart rate, Denies palpitations and Denies slow heart rate Resp Denies chest congestion, Denies cough, Denies pain on inspiration and Denies wheezing GI Denies abdominal pain, Denies bloating, Denies change in stool character, Denies constipation, Denies diarrhea, Denies nausea, Denies vomiting and Denies hematemesis Denies nipple discharge Musc Denies back pain, Denies arthralgias, Denies joint swelling and Denies numbness Skin/Breast Denies breast skin changes, Denies breast pain, Denies breast mass, Denies change in pigmentation, Denies nipple discharge, Denies erythema and Denies rash Neuro Denies dizziness, Denies headache(s) and Denies numbness Psych Denies anxiety and Denies depression Endo Denies palpitations Sigifredo/Lymph Denies easy bleeding, Denies easy bruising and Denies lymphadenopathy Aller/Immun Denies wheezing Physical Exam Const General: no acute distress Neck Neck: Yes normal visual inspection and Yes no lymphadenopathy Chest Other: Left breast: Well-healed incision in the upper outer quadrant without redness or discharge. Scar is much softer with no seroma/hematoma. No new palpable mass, skin change, nipple discharge, or enlarged lymph nodes. Right breast: No skin change, nipple discharge, palpable mass, or enlarged lymph nodes. Resp Effort & Inspection: normal respiratory effort Skin General skin exam: no rashes or lesions noted Assessment & Plan Assessment & Plan (1) Atypical ductal hyperplasia of left breast: Comment: Started on Raloxifene 03/13, f/u [facility] oncology Code(s): N60.92 - Unspecified benign mammary dysplasia of left breast Category: Medical (2) Atypical lobular hyperplasia of left breast: Code(s): N60.92 - Unspecified benign mammary dysplasia of left breast Category: Medical Plan Patient returns for follow-up examination following left breast lumpectomy for atypical lobular hyperplasia and atypical ductal hyperplasia. She was evaluated by Dr. Brandt and started on antiestrogen therapy. Examination today reveals no suspicious findings in either breast. Her most recent mammogram of 12/14/2023 revealed no suspicious findings in either breast (BI-RADS 2). She is scheduled for follow-up mammogram on 02/07/2025. I recommended a follow-up examination in 6 months. She is welcome to call sooner for any new concerns. Coding Level of Care Code Est Pt Level 3 (34978) Complex EM visit Add On G2211 Diagnoses Atypical ductal hyperplasia of left breast N60.92 Atypical lobular hyperplasia of left breast N60.92
[2024-10-29 13:12] VITALS: BP 172/76; PULSE 84; BMI 32.4
== END 2024-10-29 13:25 | disposition home or self-care (01) ==
PROVIDERS: PCP Internal Medicine; Visit Provider Surgery
DX: N60.92 Unspecified benign mammary dysplasia of left breast (principal)
CPT/HCPCS: 99213; G2211

== ENCOUNTER → 2024-10-29 12:53 | Outpatient (BNVA) | payer MEDICARE, BC, SELFPAY | PROVIDERS: PCP Internal Medicine; Visit Provider Surgery | DX: N60.92 Unspecified benign mammary dysplasia of left breast (principal) | CPT/HCPCS: 99212 ==

== ENCOUNTER 2024-11-20 13:35 | Outpatient (AMB) | payer MEDICARE, BC, SELFPAY ==
[2024-11-20 14:15] VITALS: BP 130/76; PULSE 62; BMI 32.5
--- NOTE | 2024-11-20 14:15 | MHC.OFFVIS ---
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 She has been referred for murmur. Her echo is showing mild and PFO. She is active and quite adventueous. She has no symptoms. She is on atenolol for HTN. She takes a baby ASA. Echocardiography is showing moderate aortic stenosis. She continues to be asymptomatic on follow-up and in particular denies shortness of breath, chest pain and syncope. She was sent for repeat echocardiography which is showing [id number] aortic stenosis. She returns for follow-up today. She has been doing well. She has no chest pain or shortness of breath. 02/21/24: She returns for follow-up. She had repeat echocardiography recently which showing moderate aortic valve stenosis. She is denying any dizziness or lightheadedness. No shortness of breath. She had 1 episode of chest discomfort 2 weeks ago when she was laying in bed with lasted for 20 minutes. She is saying it was a pain in the chest and she could not describe it differently. She has not had any further chest discomforts since then. She has been active and exercises regularly without any exertional symptoms. The pressure is elevated in the office. 11/20/2024: She returns for follow-up. She continues to walk regularly without any exertional symptoms. No chest discomfort shortness of breath. No dizziness/syncope. Previously had moderate aortic valve stenosis. [facility] Medical History Impaired glucose tolerance Abnormal mammogram of left breast Elevated LFTs Postmenopausal Atypical lobular hyperplasia of left breast Hyperglycemia Murmur Situational anxiety Hyperlipidemia Chronic back pain Postmenopausal Annual physical exam Hypertension Aortic stenosis Surgical History History of lumpectomy of left breast S/P lumpectomy, left breast (03/02/22) Hx of repair of rotator cuff H/O colonoscopy History of back surgery Hx of tonsillectomy Family History Mother CVD (cardiovascular disease) Breast cancer, Onset Age: 60 Father Parkinson disease Brother Prostate cancer Sister Breast cancer, Onset Age: 50 Social History Household Members: Spouse Housing: House Are you a primary child care aide to a significant other at home: No Do you presently have visiting nurse or other home services: No Alcohol intake: never Patient Tobacco Use Status: Never used Tobacco Tobacco use type: Cigarette e-Cigarette/Vaping Use: Never Used Second Hand Smoke Exposure: No service: No Current occupational status: retired Cognitive needs: No Hearing needs: No Vision needs: Yes Female Reproductive History Menstrual Age of Menarche: 14 Review of Systems Const Denies chills, Denies fatigue, Denies fever(s), Denies frequent falls, Denies weakness, Denies weight gain and Denies weight loss ENT Denies dizziness Card Denies chest pain, Denies leg edema, Denies lightheadedness, Denies palpitations, Denies dyspnea and Denies dyspnea on exertion Resp Denies cough, Denies dyspnea and Denies dyspnea on exertion GI Denies hematochezia Musc Denies abnormal gait, Denies muscle weakness, Denies numbness, Denies radiating pain into limb and Denies tingling Neuro Denies abnormal gait, Denies dizziness, Denies frequent falls, Denies numbness, Denies tingling and Denies weakness Endo Denies fatigue and Denies palpitations Physical Exam Vital Signs: Last Vital Signs Pulse 62 11/20/24 14:15 BP 130/76 11/20/24 14:15 BMI result Body Mass Index 32.5 GENERAL APPEARANCE: in no acute distress, well developed, well nourished. NECK/THYROID: no carotid bruit, no jugular venous distention. Carotid upstrokes are normal. SKIN: no suspicious lesions, warm and dry. HEART: Ejection systolic murmur aortic area, preserved 2nd heart sound.. LUNGS: clear to auscultation bilaterally. ABDOMEN: normal, bowel sounds present, soft, nontender, nondistended. EXTREMITIES: no clubbing, cyanosis, or edema. PERIPHERAL PULSES: equal. NEUROLOGIC: nonfocal, alert and oriented. Assessment & Plan Assessment & Plan (1) Hypertension: Code(s): I10 - Essential (primary) hypertension Category: Medical Qualifiers: Hypertension type: primary hypertension Qualified Code(s): I10 - Essential (primary) hypertension (2) Aortic stenosis: Code(s): I35.0 - Nonrheumatic aortic (valve) stenosis Category: Medical Qualifiers: Cardiac valve disease etiology: nonrheumatic Qualified Code(s): I35.0 - Nonrheumatic aortic (valve) stenosis Plan Pleasant 69 year female moderate aortic valve stenosis. Blood pressure is well controlled. Clinically stable and has no exertional symptoms. She previously had moderate aortic valve stenosis. We will repeat echocardiography to reassess the aortic valve. Symptoms of progressive aortic valve stenosis discussed with the patient and she was advised to reach out to us in case any of these symptoms start bothering her. She will follow up with us in 6 months. Thank you for allowing me to participate in the care of your patient. Please feel free to contact me if you have any questions. Orders: Orders CA echo transthoracic complete Today I35.0 - Nonrheumatic aortic (valve) stenosis Coding Level of Care Code Est Pt Level 4 (61167) Diagnoses Primary hypertension I10 Hypertension type: primary hypertension Nonrheumatic aortic valve stenosis I35.0 Cardiac valve disease etiology: nonrheumatic
--- OUTSIDE RECORDS SUMMARY | 2024-11-20 15:49 | XMS_ITS | Clinical Summary ---
Author Organization [facility] Address [address] [place] [address] Care Team Providers Care Compressor Battery Pellets Name Role Phone Unavailable Primary Care Provider Unavailabl e Social History Tobacco Use Types Packs/Day Years Used Date Smoking Tobacco: Never Assessed Sex and Gender Information Value Date Recorded Sex Assigned at Not on file Gender Identity Not on file Sexual Orientation Not on file Plan of Treatment Health Maintenance Due Date Last Done Comments Hepatitis C Virus Screening 1955 DTaP/Tdap/Td Vaccines (1 - Tdap) 1972 Pneumococcal Vaccines 50+ (1 of 1 - PCV) 2003 Zoster (Shingles) Vaccine (1 of 2) 2003 COVID-19 Vaccine ( - 2023-2 5 season) 2024 RSV Vaccine 60 years and old er and Patients (1 - 1-dose 75+ series) 2028 Hepatitis B Vaccines Aged Out No long er eligible based on patient's age to complete this topic
--- OUTSIDE RECORDS SUMMARY | 2024-11-20 15:49 | XMS_ITS | Patient Health Record ---
Author Organization [facility] Address [address] [place] [address] Care Team Providers Care Shaker Repairer Name Role Phone Marlen Curran MD Primary Care Provider Yoseph Cartagena Unavailable [phone] ALLERGIES Allergen (clinical drug ingredient) Drug/Non Drug [...] for 30 day(s) Active Vitamin E Beauty 83915 UNIT/52ML as directed Externally Activ e Multi [...] malignant neoplasm of colon (Z12.11) Active confirmed 218601793 Problem History of adenomatous polyp of colon (Z86.010) Active confirmed 392412929 Problem Hypertension (I10) Active confirmed 53191937 Problem Encounter for screening for malignant neoplasm of rectum (Z12.12) Active confirmed Screening fo r malignant neoplasm of rectum (900977672) Problem Elevated liver enzymes (R74.8) Active confirmed 193248355 Problem Fatty liver (K76.0) Active confirmed 488697821 Problem Family history of colon cancer (Z80.0) Active confirmed 330463708 Problem Long-term use of aspirin therapy (Z79.82) Active confirmed 615908342 Problem Diverticulosis of colon (K57.30) Active confirmed Diverticulosi s of colon (282926343) PLAN OF TREATMENT Pending Test Test Name [...] [place] [address] [place] [address] [id number] PETE SHAFFER Self - patient is the insured [facility] [address] [place], [place] [id number] PETE SHAFFER Self - patient is the insured MEDICAL (GENERAL) HISTORY Medical History History ICD Code Denies HI,DM,CVA,Lung disease,renal dise ase Colonoscopy in 2005 and [...]
== END 2024-11-20 14:54 | disposition home or self-care (01) ==
PROVIDERS: PCP Internal Medicine; Visit Provider Internal Medicine Cardiovascular Disease
DX: I10 Essential (primary) hypertension (principal); I35.0 Nonrheumatic aortic (valve) stenosis
CPT/HCPCS: 99214

== ENCOUNTER → 2024-11-20 13:35 | Outpatient (BNVA) | payer MEDICARE, BC, SELFPAY | PROVIDERS: PCP Internal Medicine; Visit Provider Internal Medicine Cardiovascular Disease | DX: I35.0 Nonrheumatic aortic (valve) stenosis (principal); I10 Essential (primary) hypertension | CPT/HCPCS: 99212 ==

== ENCOUNTER → 2024-11-29 13:00 | Outpatient (REF) | payer MEDICARE, BC, SELFPAY | LOC: HO.CARD 13:00 | PROVIDERS: PCP Internal Medicine; Visit Provider Internal Medicine Cardiovascular Disease | DX: I35.0 Nonrheumatic aortic (valve) stenosis (principal) | CPT/HCPCS: 93306 ==

== ENCOUNTER → 2024-11-29 13:03 | Outpatient (BNV) | payer MEDICARE, BC, SELFPAY | PROVIDERS: PCP Internal Medicine; Visit Provider Internal Medicine Cardiovascular Disease | DX: I42.2 Other hypertrophic cardiomyopathy (principal); I35.2 Nonrheumatic aortic (valve) stenosis with insufficiency | CPT/HCPCS: 93306 ==

== ENCOUNTER 2024-12-09 14:08 | Outpatient (AMB) | payer MEDICARE, BC, SELFPAY ==
--- OUTSIDE RECORDS SUMMARY | 2024-12-09 14:11 | XMS_ITS | Clinical Summary ---
Author Organization [facility] Address [address] [place] [address] Care Team Providers Care Drawing Tender Name Role Phone Unavailable Primary Care Provider [...]
--- OUTSIDE RECORDS SUMMARY | 2024-12-09 14:11 | XMS_ITS | Patient Health Record ---
Author Organization [facility] Address [address] [place] [address] Care Team Providers Care Welding Machine Operator Electro Gas Name Role Phone Marlen Curran MD Primary Care Provider Yoseph Cartagena Unavailable [phone] ALLERGIES Allergen (clinical drug ingredient) Drug/Non Drug [...] for 30 day(s) Active Vitamin E Beauty 80376 UNIT/52ML as directed Externally Activ e Multi [...] malignant neoplasm of colon (Z12.11) Active confirmed 130103976 Problem History of adenomatous polyp of colon (Z86.010) Active confirmed 489658108 Problem Hypertension (I10) Active confirmed 54737505 Problem Encounter for screening for malignant neoplasm of rectum (Z12.12) Active confirmed Screening fo r malignant neoplasm of rectum (428755551) Problem Elevated liver enzymes (R74.8) Active confirmed 165994782 Problem Fatty liver (K76.0) Active confirmed 522044203 Problem Family history of colon cancer (Z80.0) Active confirmed 806105707 Problem Long-term use of aspirin therapy (Z79.82) Active confirmed 879778135 Problem Diverticulosis of colon (K57.30) Active confirmed Diverticulosi s of colon (341898794) PLAN OF TREATMENT Pending Test Test Name [...] [place] [address] [place] [address] [id number] PETE SHAFFER Self - patient is the insured [facility] [address] [place], [place] [id number] [id number] PETE SHAFFER Self - patient is the insured MEDICAL (GENERAL) HISTORY Medical History History ICD Code Denies [place],DM,CVA,Lung disease,renal dise ase Colonoscopy in 2005 and [...]
--- NOTE | 2024-12-09 14:19 | A.OFFPC_ITS ---
Vital Signs 12/09/24 14:21 Height 5 ft 2 in Weight 175 lb 2 oz BMI 32.0 BP 120/82 Blood Pressure Location Lt brachial Position Sitting Pulse 61 Pulse Source Pulse Oximeter Temp 97.3 F Temp Source Temporal Artery Scan Pulse Oximetry (%) 98 Oxygen Delivery Method Room Air Intake Visit Reasons: DM Intake Note: Patient is here to follow up on DM. Handbag Finisher Required: No Client Account Representative: Not Required per policy Accompanied by: Self / Same As Patient Allergies adhesive tape Allergy (Intermediate, Verified 12/09/24 14:21) Rash paper tape Allergy (Intermediate, Uncoded 12/09/24 14:21) Blister Medication List - Last Reconciled 12/09/24 by Laura Hutchison PA-C amlodipine 2.5 mg PO DAILY aspirin (Adult Low Dose Aspirin) 81 mg PO DAILY atenolol 50 mg PO DAILY multivitamin 1 tab PO DAILY raloxifene 60 mg PO DAILY rosuvastatin (Crestor) 10 mg PO DAILY trazodone 100 mg PO BEDTIME PRN Tobacco use date assessed: 12/09/24 Fall risk assessment: No Falls in past year Last assessed Fall Risk: 12/09/24 Dental Screening Dental Screen Date: 12/09/24 Did you have a dental visit in the last 12 months?: No Did you have a dental problem in the last 6 months where you did not have access to dental care?: No Was dental information given to patient?: No (Dentures) HPI DM HPI Details 69-year-old female with past medical his tory of hypercholesterolemia, hypertension, atypical ductal hyperplasia of the breast, aortic stenosis and diabetes mellitus last seen 08/[address] Wood coming in for follow up.? In review of the notes, patient was seen by Cardiology 10/2024 advised to have repeat echo and follow up in 6 months.? Seen by general surgery 10/2024 after being evaluated by Hematology/Oncology and started on antiestrogen therapy recommending follow up in 6 months. Presenting for follow-up on diabetes and cholesterol management. The diabetes is stable with an A1c of 6.0%. Patient adheres to her diabetic treatment plan. The patient reports a recent unexplained increase in cholesterol levels while on rosuvastatin, with no changes in her diet or daily routine. Menopausal symptoms previously severe, leading to discontinuation of relaxafine due to intolerable side effects. A trial of medication discontinuation has improved symptoms. She will resumes the raloxifene in February [facility] Medical History (Updated 11/21/24 @ 18:07 by Sandra Wood MD) Impaired glucose tolerance Abnormal mammogram of left breast Elevated LFTs Postmenopausal Atypical lobular hyperplasia of left breast Hyperglycemia Murmur Situational anxiety Hyperlipidemia Chronic back pain Postmenopausal Annual physical exam Hypertension Aortic stenosis Surgical History History of lumpectomy of left breast S/P lumpectomy, left breast (03/02/22) Hx of repair of rotator cuff H/O colonoscopy History of back surgery Hx of tonsillectomy Family History Mother CVD (cardiovascular disease) Breast cancer, Onset Age: 60 Father Parkinson disease Brother Prostate cancer Sister Breast cancer, Onset Age: 50 Social History Household Members: Spouse Housing: House Are you a primary senior care assistant to a significant other at home: No Do you presently have visiting nurse or other home services: No Alcohol intake: never Patient Tobacco Use Status: Never used Tobacco Tobacco use type: Cigarette e-Cigarette/Vaping Use: Never Used Second Hand Smoke Exposure: No service: No Current occupational status: retired Cognitive needs: No Hearing needs: No Vision needs: Yes Female Reproductive History Menstrual Age of Menarche: 14 Questionnaire PHQ-9 Over the last 2 weeks, how often have you been bothered by any of the following problems? 1. Little interest or pleasure in doing things: not at all 2. Feeling down, depressed, or hopeless: not at all 3. Trouble falling or staying asleep, or sleeping too much: not at all 4. Feeling tired or having little energy: not at all 5. Poor appetite or overeating: not at all 6. Feeling bad about yourself - or that you are a failure or have let yourself or your family down: not at all 7. Trouble concentrating on things, such as reading the newspaper or watching television: not at all 8. Moving or speaking so slowly that other people could have noticed. Or the opposite - being so fidgety or restless that you have been moving around a lot more than usual: not at all 9. Thoughts that you would be better off or of hurting yourself in some way: not at all Total score: 0 Depression Screening Interpretation: Negative Depression Screening Done: Yes Source: Developed by Drs. Yoseph Herbert, Twyla Horne, Artemio Cali and colleagues, with an educational kika from [employer]. Thrive Questionnaire Date Thrive assessed: 12/09/24 I am a: Patient What is your living situation today?: I have a steady place to live Within the past 12 months, did the food you bought not last and you didn't have the money to get more?: Never true Within the past 12 months, did you worry whether your food would run out before you got money to buy more?: Never true Do you have trouble paying for medicines?: No Do you have trouble getting transportation to medical appointments?: No Do you have trouble paying your heating and electricity bill?: No Do you have trouble taking care of your child, family member or friend?: No Do you have trouble with day-to-day activities such as bathing, preparing meals, shopping, managing finances, etc.?: No Are you currently unemployed and looking for a job?: No Are you interested in more education?: No Please select the resources that you would like help with: None Currently or been in a relationship where the following occur: No concerns reported THRIVE Score: 0 AUDIT C Alcohol Use Questionnaire (AUDIT-C) 2. How many drinks containing alcohol do you have on a typical day when you are drinking?: 1 or 2 3. How often do you have six or more drinks on one occasion?: Never Total Score: 0 AIYANA-7 AMB Questionnaire AIYANA-7 Date AIYANA - 7 assessed: 12/09/24 Feeling nervous, anxious, or on edge: 0 = Not at all Not being able to stop or control worryin = Not at all Worrying too much about different things: 0 = Not at all Trouble relaxin = Not at all Being so restless that it is hard to sit still: 0 = Not at all Becoming easily annoyed or irritable: 0 = Not at all Feeling afraid as if something awful might happen: 0 = Not at all Total AIYANA-7 score (0-4 normal; 5-9 mild; 10-14 moderate; 15-21 severe): 0 Source: Developed by Drs. Yoseph Herbert, Twyla Horne, Artemio Cali and colleagues, with an educational kika from [employer]. Review of Systems Const Denies body aches, Denies chills, Denies fever(s), Denies headache(s) and Denies poor appetite Eyes Reports no additional complaints ENT Denies dysphagia, Denies dizziness, Denies headache(s) and Denies odynophagia Card Denies chest pain, Denies syncope, Denies edema, Denies irregular heart rhythm, Denies lightheadedness and Denies dyspnea Resp Denies cough and Denies dyspnea GI Denies abdominal pain, Denies constipation, Denies dysphagia, Denies diarrhea, Denies nausea, Denies odynophagia and Denies vomiting Reports no additional complaints Musc Reports no additional complaints and Denies abnormal gait Skin/Breast Reports system reviewed and no additional complaints, except as documented Neuro Denies abnormal gait, Denies dizziness, Denies syncope and Denies headache(s) Psych Reports no additional complaints Physical exam (Primary Care) Vital Signs: Last Vital Signs Temp 97.3 F 12/09/24 14:21 Pulse 61 12/09/24 14:21 BP 120/82 12/09/24 14:21 Pulse Ox 98 12/09/24 14:21 Oxygen Delivery Method Room Air 12/09/24 14:21 BMI result Body Mass Index 32.0 Tobacco/Smoking Status: Tobacco use Status Tobacco use date assessed 12/09/24 12/09/24 14:26 Patient Tobacco Use Status Never used Tobacco 12/09/24 14:26 Tobacco use type Cigarette 12/09/24 14:26 e-Cigarette/Vaping Use Never Used 12/09/24 14:26 PHQ-9: PHQ-9 Score PHQ-9: Total score 0 12/09/24 14:39 Depression Screening Interpretation: Negative Thrive Assessment: Date of Thrive Assessment Date Thrive assessed 12/09/24 12/09/24 14:26 Currently or been in a relationship where the following occur: No concerns reported Const General: cooperative, healthy appearing, comfortable and no acute distress Orientation/consciousness: patient oriented x3 HENMT Head: Yes normocephalic Ears: hearing grossly normal bilaterally General nose exam: Normal external nose present Eyes General: appearance normal, both eyes and all related structures Conjunctivae: conjunctivae normal Neck Neck: Yes full ROM and Yes no lymphadenopathy Resp Effort & Inspection: normal respiratory effort Auscultation: clear to auscultation bilaterally, no crackles, no rales, no rhonchi and no wheezes Cardio Rate: regular rate Rhythm: regular rhythm Skin General skin exam: no rashes or lesions noted Neuro General: patient oriented x3 Gait exam (Neuro): Normal gait present Extrem General: Yes normal to inspection, Yes full ROM and No edema Psych Affect: normal affect Attitude: cooperative Insight: Good insight present (Psych) Judgement: Good judgement present (Psych) Coding Level of Care Code Est Pt Level 4 (69474) Diagnoses Type 2 diabetes mellitus with hyperglycemia, without long-term current use of insulin E11.65 Diabetes mellitus retirement insulin use: without terminal system operator use Fatty liver K76.0 Primary hypertension I10 Hypertension type: primary hypertension Pure hypercholesterolemia E78.00 Hyperlipidemia type: pure hypercholesterolemia Assessment & Plan Assessment & Plan (1) Type 2 diabetes mellitus with hyperglycemia: Comment: Dr. Bahena Code(s): E11.65 - Type 2 diabetes mellitus with hyperglycemia Category: Medical Qualifiers: Diabetes mellitus terminal system operator insulin use: without retirement use Qualified Code(s): E11.65 - Type 2 diabetes mellitus with hyperglycemia Plan: Decrease the amount of carbohydrates such as pasta, bread, rice, and potatoes and limit the amount of sweets. Although fruits are generally healthy they should be eaten in moderation as they are still high in sugar. Hemoglobin A1c goal of less than 7%. A1c at goal today (2) Fatty liver: Comment: Liver ultrasound showed fatty liver and normal gallbladder 08/13 Code(s): K76.0 - Fatty (change of) liver, not elsewhere classified Category: Medical Plan: Healthy diet and regular exercise is encouraged. (3) Hypertension: Code(s): I10 - Essential (primary) hypertension Category: Medical Qualifiers: Hypertension type: primary hypertension Qualified Code(s): I10 - Essential (primary) hypertension Plan: Continue on current blood pressure medication. Avoid salt intake and encourage healthy diet and regular exercise. (4) Hyperlipidemia: Code(s): E78.5 - Hyperlipidemia, unspecified Category: Medical Qualifiers: Hyperlipidemia type: pure hypercholesterolemia Qualified Code(s): E78.00 - Pure hypercholesterolemia, unspecified Plan: Avoid foods that are high in cholesterol such as red meat, fried foods, eggs and baked goods. Triglyceride goal of less than 150 and LDL goal of less than 100. Last LDL 158. Given the elevated cholesterol level, I recommend increasing rosuvastatin to 20 mg and monitoring for side effects, particularly muscle aches. She should continue her current exercise routine and dietary habits. I encourage her to maintain lifestyle modifications that reduce cardiovascular risks. We will reassess lab values three months post-travel to evaluate the efficacy of these changes and titrate further interventions as needed based on findings. Plan This note was constructed using voice recognition software. While every effort has been made to ensure accuracy and camelid fiber sorter, still areas may have been included sometimes these areas may affect the content or meeting of the given symptoms. Total time spent caring for the patient today was 20 minutes. This includes time spent before the visit reviewing the chart, time spent during the visit, and time spent after the visit and documentation. Orders: Orders Lipid Panel 3 Months E78.00 - Pure hypercholesterolemia, unspecified Medications: New rosuvastatin 20 mg PO DAILY 90 tabs 1RF On Hold rosuvastatin (Crestor) Hold Comment: Doctor's Order 10 mg PO DAILY 90 tabs 1RF raloxifene Hold Comment: Doctor's Order 60 mg PO DAILY 90 tabs 4RF
[2024-12-09 14:21] VITALS: BP 120/82; PULSE 61; TEMP 36.3; O2SAT 98; BMI 32.0
== END 2024-12-09 15:12 | disposition home or self-care (01) ==
PROVIDERS: PCP Internal Medicine
DX: E11.65 Type 2 diabetes mellitus with hyperglycemia (principal); K76.0 Fatty (change of) liver, not elsewhere classified; I10 Essential (primary) hypertension; E78.00 Pure hypercholesterolemia, unspecified

== ENCOUNTER → 2024-12-09 14:08 | Outpatient (BNVA) | payer MEDICARE, BC, SELFPAY | PROVIDERS: PCP Internal Medicine | DX: E11.65 Type 2 diabetes mellitus with hyperglycemia (principal); I10 Essential (primary) hypertension; E78.00 Pure hypercholesterolemia, unspecified; K76.0 Fatty (change of) liver, not elsewhere classified | CPT/HCPCS: 99212 ==

== ENCOUNTER 2025-02-07 10:03 | Outpatient (REF) | payer MEDICARE, BC, SELFPAY ==
--- OUTSIDE RECORDS SUMMARY | 2025-02-07 10:51 | XMS_ITS ---
Author Name [facility] Organization Unknown Care Team Organization Name Specialty Phone Email Start Date End Da criss [facility], [facility] Ren Keller MD Primary Care 07/15/2021 06/10/2024
--- OUTSIDE RECORDS SUMMARY | 2025-02-07 10:51 | XMS_ITS | Clinical Summary ---
Author Organization [facility] Address [address] [place] [address] Care Team Providers Care Pourer Crane Ladle Name Role Phone Unavailable Primary Care Provider Unavailabl e Social History Tobacco Use Types Packs/Day Years Used Date Smoking Tobacco: Never Assessed Comments Unknown Sex and Gender Information Value Date Recorded Sex Assigned at Not on file Legal Sex Female 2:16 PM EDT Gender Identity Not on file Sexual Orientation [...]
--- OUTSIDE RECORDS SUMMARY | 2025-02-07 10:51 | XMS_ITS | Patient Health Record ---
Author Organization [facility] Address [address] [place] [address] Care Team Providers Care Conductor Freight Name Role Phone Marlen Curran MD Primary Care Provider Yoseph Cartagena Unavailable [phone] Allergies Allergen (clinical drug ingredient) Drug/Non Drug Allergy documented on EMR Reaction Allergy Type Onset Date Status paper tape (uncoded) Unknown Allergy Active Reason For Referral No Information Medications Medication SIG (Take, Route, Frequency, Duration) Notes Start Date End Date Status Atenolol 50 MG 1 tablet Orally Once a day Active Vitamin D (Cholecalciferol) 25 MCG (1000 UT) 1 capsule Orally Once a day for 30 day(s) Active Vitamin E Beauty 90965 UNIT/52ML as directed Externally Activ e Multi Vitamin/Minerals 1 1 Orally QD Active Aspir-81 81 MG 1 tablet Orally Once a day Active Fish Oil 1000 MG 1 capsule Orally Onc e a day Active Immunizations Vaccine Route Administration Date Status Comme nts Flu vaccine no Preserv 3 and > Unknown 08/03/2016 Admin istered Influenza Unknown 08/11/2021 Administered Problems Problem Type SNOMED Code ICD Code Onset Dates Problem Status W/U Status Risk Notes Problem 367828546 Encounter for screening for malignant neoplasm of colon (Z12.11) Active confirmed Problem 297673422 History of adenomatous polyp of colon (Z86.010) Active confirmed Problem 22472927 Hypertension (I10) Active confirmed Problem Screening for malignant neoplasm of rectum (606916463) Encounter for screening for malignant neoplasm of rectum (Z12.12) Active confirmed Problem 071319605 Elevated liver enzymes (R74.8) Active confirmed Problem 281032355 Fatty liver (K76.0) Active confirmed Problem 174761079 Family history o f colon cancer (Z80.0) Active confirmed Problem 757593100 Long-term use of aspirin therapy (Z79.82) Active confirmed Problem Diverticulosis of colon (993669331) Diverticulosis of colon (K57.30) Active confirmed Plan Of Treatment Pending Test Test Name Order Date COLONOSCOPY AND BIOPSY 06/28/2011 LIVER PROFILE 10/13/2016 MITOCHONDRIAL AB 10/13/2016 SMOOTH MUSCLE ANTIBODIES 10/13/2016 Future Test Test Name Order Date COLONOSCOPY 10/13/2016 COLONOSCOPY 02/23/2022 Insurance Providers Payer Name Payer Address Payer Phone Subscriber Number Group Number Insured Name Patient Relationship to Insured Coverage Start Date Coverage End Date MEDICARE OF [place] [address] [facility] [place] [address] [phone] [id number] PETE SHAFFER Self - patient is the insured [facility] [address] [place], [place] [id number] [phone] [id number] PETE SHAFFER Self - patient is the insured Medical (General) History Medical History History ICD Code Denies RI,DM,CVA,Lung disease,renal dise ase Colonoscopy in 2005 and [...]
== END 2025-02-07 10:04 | disposition home or self-care (01) ==
LOC: HO.MAMMO 10:03
PROVIDERS: PCP Internal Medicine; Visit Provider Internal Medicine
DX: Z12.31 Encounter for screening mammogram for malignant neoplasm of breast (principal)
CPT/HCPCS: 77063; 77067

== ENCOUNTER → 2025-02-07 10:15 | Outpatient (BNV) | payer MEDICARE, BC, SELFPAY | PROVIDERS: PCP Internal Medicine; Visit Provider Internal Medicine | DX: Z12.31 Encounter for screening mammogram for malignant neoplasm of breast (principal) | CPT/HCPCS: 77063; 77067 ==

== ENCOUNTER 2025-03-10 14:18 | Outpatient (AMB) | payer MEDICARE, BC, SELFPAY ==
--- OUTSIDE RECORDS SUMMARY | 2025-03-10 14:30 | XMS_ITS | Clinical Summary ---
Author Organization [facility] Address [address] [place] [address] Care Team Providers Care Errand Runner Name Role Phone Unavailable Primary Care Provider [...]
--- OUTSIDE RECORDS SUMMARY | 2025-03-10 14:30 | XMS_ITS | Patient Health Record ---
Author Organization [facility] Address [address] [place] [address] Care Team Providers Care Cafeteria Manager Name Role Phone Marlen Curran MD Primary Care Provider Yoseph Cartagena Unavailable [phone] Allergies Allergen (clinical drug ingredient) Drug/Non Drug [...] for 30 day(s) Active Vitamin E Beauty 07022 UNIT/52ML as directed Externally Activ e Multi [...] Problem Status W/U Status Risk Notes Problem 580123076 Encounter for screening for malignant neoplasm of colon (Z12.11) Active confirmed Problem 802024590 History of adenomatous polyp of colon (Z86.010) Active confirmed Problem 23048490 Hypertension (I10) Active confirmed Problem Screening for malignant neoplasm of rectum (165269352) Encounter for screening for malignant neoplasm of rectum (Z12.12) Active confirmed Problem 611594346 Elevated liver enzymes (R74.8) Active confirmed Problem 005987178 Fatty liver (K76.0) Active confirmed Problem 022948512 Family history o f colon cancer (Z80.0) Active confirmed Problem 542853422 Long-term use of aspirin therapy (Z79.82) Active confirmed Problem Diverticulosis of colon (741453048) Diverticulosis of colon (K57.30) Active confirmed Plan [...] Date MEDICARE OF [place] [address] [place] [address] [id number] PETE SHAFFER Self - patient is the insured [facility] [address] [place], [place] [id number] PETE SHAFFER Self - patient is the insured Medical (General) History Medical History History ICD Code Denies MD,DM,CVA,Lung disease,renal dise ase Colonoscopy in 2005 and [...]
[2025-03-10 14:31] VITALS: BP 128/76; PULSE 64; O2SAT 97; BMI 32.2
--- NOTE | 2025-03-10 14:31 | A.OFFPC_ITS ---
Vital Signs 03/10/25 14:31 Height 5 ft 2 in Weight 176 lb BMI 32.2 BP 128/76 Blood Pressure Location Lt brachial Position Sitting Pulse 64 Pulse Source Pulse Oximeter Pulse Oximetry (%) 97 Oxygen Delivery Method Room Air Intake Visit Reasons: f/u HLD Allergies adhesive tape Allergy (Intermediate, Verified 03/10/25 14:31) Rash paper tape Allergy (Intermediate, Uncoded 03/10/25 14:31) Blister Tobacco use date assessed: 12/09/24 Fall risk assessment: No Falls in past year Last assessed Fall Risk: 03/10/25 Dental Screening Dental Screen Date: 03/10/25 Did you have a dental visit in the last 12 months?: No Did you have a dental problem in the last 6 months where you did not have access to dental care?: No Was dental information given to patient?: No PFSH Medical History (Updated 03/10/25 @ 14:55 by Sandra Wood MD) Impaired glucose tolerance Abnormal mammogram of left breast Elevated LFTs Postmenopausal Atypical lobular hyperplasia of left breast Hyperglycemia Murmur Situational anxiety Hyperlipidemia Chronic back pain Postmenopausal Annual physical exam Hypertension Aortic stenosis Surgical History History of lumpectomy of left breast S/P lumpectomy, left breast (03/02/22) Hx of repair of rotator cuff H/O colonoscopy History of back surgery Hx of tonsillectomy Family History Mother CVD (cardiovascular disease) Breast cancer, Onset Age: 60 Father Parkinson disease Brother Prostate cancer Sister Breast cancer, Onset Age: 50 Social History Household Members: Spouse Housing: House Are you a primary intensive care unit registered nurse to a significant other at home: No Do you presently have visiting nurse or other home services: No Alcohol intake: never Patient Tobacco Use Status: Never used Tobacco Tobacco use type: Cigarette e-Cigarette/Vaping Use: Never Used Second Hand Smoke Exposure: No service: No Current occupational status: retired Cognitive needs: No Hearing needs: No Vision needs: Yes Female Reproductive History Menstrual Age of Menarche: 14 Questionnaire PHQ-9 Over the last 2 weeks, how often have you been bothered by any of the following problems? 1. Little interest or pleasure in doing things: not at all 2. Feeling down, depressed, or hopeless: not at all 3. Trouble falling or staying asleep, or sleeping too much: not at all 4. Feeling tired or having little energy: not at all 5. Poor appetite or overeating: not at all 6. Feeling bad about yourself - or that you are a failure or have let yourself or your family down: not at all 7. Trouble concentrating on things, such as reading the newspaper or watching television: not at all 8. Moving or speaking so slowly that other people could have noticed. Or the opposite - being so fidgety or restless that you have been moving around a lot more than usual: not at all 9. Thoughts that you would be better off or of hurting yourself in some way: not at all Total score: 0 Depression Screening Interpretation: Negative Depression Screening Done: Yes Source: Developed by Drs. Yoseph Herbert, Twyla Horne, Artemio Cali and colleagues, with an educational kika from [employer] ([employer]). Thrive Questionnaire Date Thrive assessed: 03/08/25 I am a: Patient What is your living situation today?: I have a steady place to live Within the past 12 months, did the food you bought not last and you didn't have the money to get more?: Never true Within the past 12 months, did you worry whether your food would run out before you got money to buy more?: Never true Do you have trouble paying for medicines?: No Do you have trouble getting transportation to medical appointments?: No Do you have trouble paying your heating and electricity bill?: No Do you have trouble taking care of your child, family member or friend?: No Do you have trouble with day-to-day activities such as bathing, preparing meals, shopping, managing finances, etc.?: No Are you currently unemployed and looking for a job?: No Are you interested in more education?: No Please select the resources that you would like help with: None Currently or been in a relationship where the following occur: No concerns reported THRIVE Score: 0 AUDIT C Alcohol Use Questionnaire (AUDIT-C) 1. How often do you have a drink containing alcohol?: Never Total Score: 0 AIYANA-7 AMB Questionnaire AIYANA-7 Date AIYANA - 7 assessed: 12/09/24 Feeling nervous, anxious, or on edge: 0 = Not at all Not being able to stop or control worryin = Not at all Worrying too much about different things: 0 = Not at all Trouble relaxin = Not at all Being so restless that it is hard to sit still: 0 = Not at all Becoming easily annoyed or irritable: 0 = Not at all Feeling afraid as if something awful might happen: 0 = Not at all Total AIYANA-7 score (0-4 normal; 5-9 mild; 10-14 moderate; 15-21 severe): 0 Source: Developed by Drs. Yoseph Herbert, Twyla Horne, Artemio Cali and colleagues, with an educational kika from [employer] ([employer]). Physical exam (Primary Care) Vital Signs: Last Vital Signs Pulse 64 03/10/25 14:31 BP 128/76 03/10/25 14:31 Pulse Ox 97 03/10/25 14:31 Oxygen Delivery Method Room Air 03/10/25 14:31 BMI result Body Mass Index 32.2 Tobacco/Smoking Status: Tobacco use Status Tobacco use date assessed 12/09/24 03/10/25 14:32 Patient Tobacco Use Status Never used Tobacco 03/10/25 14:32 Tobacco use type Cigarette 03/10/25 14:32 e-Cigarette/Vaping Use Never Used 03/10/25 14:32 PHQ-9: PHQ-9 Score PHQ-9: Total score 0 03/10/25 14:47 Depression Screening Interpretation: Negative Thrive Assessment: Date of Thrive Assessment Date Thrive assessed 03/08/25 03/10/25 14:32 Currently or been in a relationship where the following occur: No concerns reported Const General: alert; No acute distress Eyes Conjunctivae: conjunctivae normal Resp Auscultation: clear to auscultation bilaterally Cardio Rate: regular rate Rhythm: regular rhythm GI Inspection: Yes normal to inspection Extrem General: Yes normal to inspection and No edema Results AMB Hemoglobin A1c AMB Hemoglobin A1c 6.4 % Last Edit by Dang Gerard CMA on 03/10/25 14 :46 Results Reviewed Results Reviewed: Laboratory Last Values Hgb A1c (Clinic) 6.4 % (4.0-6.0) H 03/10/25 14:33 Coding Level of Care Code Est Pt Level 4 (80084) Complex EM visit Add On G2211 Diagnoses Type 2 diabetes mellitus with hyperglycemia, without long-term current use of insulin E11.65 Diabetes mellitus long-term insulin use: without long-term use Primary hypertension I10 Hypertension type: primary hypertension Atypical ductal hyperplasia of left breast N60.92 Pure hypercholesterolemia E78.00 Hyperlipidemia type: pure hypercholesterolemia Nonrheumatic aortic valve stenosis I35.0 Cardiac valve disease etiology: nonrheumatic Trigger finger of left hand M65.30 Left knee pain M25.562 Assessment & Plan Assessment & Plan (1) Type 2 diabetes mellitus with hyperglycemia: Comment: Dr. Bahena Code(s): E11.65 - Type 2 diabetes mellitus with hyperglycemia Category: Medical Qualifiers: Diabetes mellitus long-term insulin use: without identity management consultant use Qualified Code(s): E11.65 - Type 2 diabetes mellitus with hyperglycemia Plan: Decrease the amount of carbohydrate intake, pasta, bread, rice and potatoes are all sugar and that is aside from all the sweet stuff, remember that fruits are good but they are Sweet also. Hemoglobin A1c goal of less than 6.5. Patient on diet control (2) Hypertension: Code(s): I10 - Essential (primary) hypertension Category: Medical Qualifiers: Hypertension type: primary hypertension Qualified Code(s): I10 - Essential (primary) hypertension Plan: Continue with blood pressure medication. Decrease salt intake and exercise on atenolol 50 mg once a day amlodipine 2.5 mg once a day (3) Atypical ductal hyperplasia of left breast: Comment: Started on Raloxifene 03/13, f/u [facility] oncology Code(s): N60.92 - Unspecified benign mammary dysplasia of left breast Category: Medical Plan: Continue to follow-up with Hematology-Oncology and mammograms up-to-date (4) Hyperlipidemia: Code(s): E78.5 - Hyperlipidemia, unspecified Category: Medical Qualifiers: Hyperlipidemia type: pure hypercholesterolemia Qualified Code(s): E78.00 - Pure hypercholesterolemia, unspecified Plan: Avoid fried foods, chicken skin, eggs, butter margarine, pastries and meat. Be it pork or beef they have a lot of cholesterol . LDL goal of less than 100 and triglyceride of less than 150 (5) Aortic stenosis: Comment: 1.15 cm 01/2024, November 2024 1.12 Code(s): I35.0 - Nonrheumatic aortic (valve) stenosis Category: Medical Qualifiers: Cardiac valve disease etiology: nonrheumatic Qualified Code(s): I35.0 - Nonrheumatic aortic (valve) stenosis Plan: Echocardiogram November 2024 Normal left ventricular size and systolic function. The visually estimated ejection fraction is between 60-65%. - There is moderate septal asymmetric hypertrophy. - There is normal right ventricular systolic function. RV size is at upper limit of normal. - There is moderate aortic valve stenosis. - The aortic valve area is 1.12 cm2. (6) Trigger finger of left hand: Code(s): M65.30 - Trigger finger, unspecified finger Category: Medical Plan: Discussed about splinting the 3rd finger of the left hand 1st. Discussed about options of orthopedic referral. (7) Left knee pain: Code(s): M25.562 - Pain in left knee Category: Medical Plan: Patient states knee instability. Patient is tender on the lateral posterior knee bilateral. Concern about tears. Will start by doing x-rays. Plan History of Present Illness The patient is a 69-year-old female presenting with follow-up concerns for her chronic conditions, including atypical ductal hyperplasia first identified in February 2022, persistent hypercholesterolemia, and essential hypertension. Aortic stenosis was diagnosed in January 2024, and the patient has a history of nephrolithiasis and non-alcoholic fatty liver disease. Previously documented Type 2 diabetes mellitus is managed with diet, with the most recent HbA1c recorded at 6.0%. Recent laboratory evaluations demonstrated hypercholesterolemia with an LDL of 150 mg/dL. An echocardiogram from November 2024 was performed to monitor aortic stenosis. Her management plan includes consistent medication adherence for hypertension and hypercholesterolemia, updated mammogram readings, and a scheduled bone density test. The patient also maintains regular hematology and oncology consultations, with the most recent follow-up in mid-2024. Health Maintenance - Mammogram completed in January 2025 - Bone density test scheduled for August 2025 - Colonoscopy performed in March 2022 - Regular follow-up with hematology/oncology last seen mid Social History Review of Systems - Cardiovascular: Denies chest pain; reports history of aortic stenosis - Endocrine: Reports Type 2 diabetes mellitus - Gastrointestinal: Denies gastrointestinal discomfort; reports non-alcoholic fatty liver - Renal: Reports history of nephrolithiasis Physical Exam Results - Labs: LDL of 150 mg/dL - Tests: Blood sugar level of 202 mg/dL, HbA1c 6.0% - Diagnostics: Echocardiogram completed in November 2024 Plan 1. 5%. Aortic stenosis is regularly monitored with echocardiograms, with the last assessment in November 2024. The patient's adherence to mammogram schedules and upcoming bone density testing in August is essential for preventative care. Regular follow-up consultations with hematology and oncology further ensure vigilant health monitoring.: Patient was informed and verbally consented to the use of an ambient scribe for clinic note documentation during this visit. Discussion Notes I discussed with the patient the importance of maintaining her current regimen of medications, emphasizing the goals for LDL and triglyceride levels to manage her hypercholesterolemia effectively. The risks and benefits of her statin treatment, alongside strict dietary control for diabetes, were explained. Regular blood glucose monitoring was stressed, targeting a reduction in HbA1c levels. For her hypertension, the combination of atenolol and amlodipine was reviewed, assuring stable control of blood pressure. We went over the indicators provided by the latest echocardiogram for aortic stenosis, indicating stable management at this time. The necessity of scheduled follow-up appointments and routine screenings such as mammograms and bone density tests were reiterated to support overall health maintenance. Patient Instructions - Continue taking rosuvastatin as prescribed; target LDL below 100 mg/dL. - Follow dietary guidelines strictly to help maintain HbA1c under 6.5%. - Continue taking atenolol and amlodipine daily as instructed for blood press ure. - Regularly check blood sugar levels and report any significant changes. - Attend the upcoming bone density test in August. - Keep all follow-up appointments with hematology and oncology. - Monitor for any new or worsening symptoms, and seek medical assistance if necessary. Orders: Orders Comprehensive Met. Panel Today Sandra Wood MD E11.65 - Type 2 diabetes mellitus with hyperglycemia AMB Hemoglobin A1c Today Sandra Wood MD Z13.9 - Encounter for screening, unspecified Complete Blood Count Auto Diff Today Sandra Wood MD E11.65 - Type 2 diabetes mellitus with hyperglycemia Free T4 (Free Thyroxine) Today Sandra Wood MD E11.65 - Type 2 diabetes mellitus with hyperglycemia Lipid Panel Today Sandra Wood MD E11.65 - Type 2 diabetes mellitus with hyperglycemia, E78.00 - Pure hypercholesterolemia, unspecified Thyroid Stimulating Hormone Today Sandra Wood MD E11.65 - Type 2 diabetes mellitus with hyperglycemia XR knee LT 3V Today Sandra Wood MD M25.562 - Pain in left knee Medications: Discontinued rosuvastatin (Crestor) Discontinued Reason: Doctor's Order 10 mg PO DAILY 90 tabs 1RF Resumed raloxifene 60 mg PO DAILY 90 tabs 4RF Halley Brandt MD
== END 2025-03-10 15:05 | disposition home or self-care (01) ==
LOC: HO.HMCH 14:19
PROVIDERS: PCP Internal Medicine; Visit Provider Internal Medicine
DX: E11.65 Type 2 diabetes mellitus with hyperglycemia (principal); I10 Essential (primary) hypertension; N60.92 Unspecified benign mammary dysplasia of left breast; E78.00 Pure hypercholesterolemia, unspecified; I35.0 Nonrheumatic aortic (valve) stenosis; M65.30 Trigger finger, unspecified finger; M25.562 Pain in left knee; Z13.9 Encounter for screening, unspecified

== ENCOUNTER → 2025-03-10 14:18 | Outpatient (BNVA) | payer MEDICARE, BC, SELFPAY | PROVIDERS: PCP Internal Medicine; Visit Provider Internal Medicine | DX: E11.65 Type 2 diabetes mellitus with hyperglycemia (principal); E78.00 Pure hypercholesterolemia, unspecified; I10 Essential (primary) hypertension; I35.0 Nonrheumatic aortic (valve) stenosis; N60.92 Unspecified benign mammary dysplasia of left breast; M65.30 Trigger finger, unspecified finger; M25.562 Pain in left knee | CPT/HCPCS: 83036; 99212 ==

== ENCOUNTER 2025-03-11 09:38 | Outpatient (REF) | payer MEDICARE, BC, SELFPAY ==
--- NOTE | ~2025-03-11 | XR_ITS ---
EXAMINATION: XR KNEE, LEFT CLINICAL INFORMATION: M25.562 - Pain in left knee COMPARISON: June 28, 2016. TECHNIQUE: AP and lateral views of the left knee. FINDINGS: No acute cortical disruption or malalignment. No lytic or blastic lesions. Mild joint space narrowing involving the medial compartment. No gross suprapatellar bursa joint effusion. No subcutaneous emphysema. XR/XR knee LT 2V IMPRESSION: No acute fracture or dislocation. Mild medial compartment osteoarthrosis. Electronically signed by: Wily Rashid MD 03/11/2025 09:57 AM EDT
--- OUTSIDE RECORDS SUMMARY | 2025-03-11 10:37 | XMS_ITS | Clinical Summary ---
Author Organization [facility] Address [address] [place] [address] Care Team Providers Care Sheet Metal Duct Installer Name Role Phone Unavailable Primary Care Provider [...]
--- OUTSIDE RECORDS SUMMARY | 2025-03-11 10:38 | XMS_ITS | Patient Health Record ---
Author Organization [facility] Address [address] [place] [address] Care Team Providers Care Criminal Lawyer Name Role Phone Marlen Curran MD Primary Care Provider Yoseph Cartagena Unavailable [phone] Allergies Allergen (clinical drug ingredient) Drug/Non Drug [...] for 30 day(s) Active Vitamin E Beauty 98344 UNIT/52ML as directed Externally Activ e Multi [...] Problem Status W/U Status Risk Notes Problem 768349026 Encounter for screening for malignant neoplasm of colon (Z12.11) Active confirmed Problem 559834030 History of adenomatous polyp of colon (Z86.010) Active confirmed Problem 85827784 Hypertension (I10) Active confirmed Problem Screening for malignant neoplasm of rectum (749202529) Encounter for screening for malignant neoplasm of rectum (Z12.12) Active confirmed Problem 345251544 Elevated liver enzymes (R74.8) Active confirmed Problem 010316177 Fatty liver (K76.0) Active confirmed Problem 042583592 Family history o f colon cancer (Z80.0) Active confirmed Problem 344167869 Long-term use of aspirin therapy (Z79.82) Active confirmed Problem Diverticulosis of colon (795572015) Diverticulosis of colon (K57.30) Active confirmed Plan [...] Date MEDICARE OF [place] [address] [place] [address] [phone] [id number] PETE SHAFFER Self - patient is the insured [facility] [address] [place], [place] [id number] [phone] [id number] PETE SHAFFER Self - patient is the insured Medical (General) History Medical History History ICD Code Denies NM,DM,CVA,Lung disease,renal dise ase Colonoscopy in 2005 and [...]
[2025-03-11 13:16] LABS: MANUAL DIFF FLAG NO
[2025-03-11 13:22] LABS: Basophils Absolute Auto 0.1 X10*3/uL (0.0-0.2); Basophils Percent Auto 0.9 % (0-2); Eosinophils Absolute Auto 0.2 X10*3/uL (0.0-0.4); Eosinophils Percent Auto 3.2 % (0-4); Hematocrit 40.8 % (37.0-47.0); Hemoglobin 13.5 g/dl (12.0-16.0); Imm Gran Abs Auto 0.02 X10*3/uL (0.00-0.03); Imm Gran Pct Auto 0.3 % (0.0-0.4); Lymphocytes Absolute Auto 2.9 X10*3/uL (1.2-4.9); Lymphocytes Percent Auto 43.7 % (20-40); Mean Corpuscular HGB Conc 33.1 g/dl (31.0-35.0); Mean Corpuscular Hemoglobin 30.7 pg (27.0-33.0); Mean Corpuscular Volume 92.7 fL (80.0-98.0); Mean Platelet Volume 9.9 fL (9.4-12.3); Monocytes Absolute Auto 0.5 X10*3/uL (0.1-1.2); Neutrophils Absolute Auto 2.9 x10*3/uL (2.0-8.3); Neutrophils Percent Auto 43.9 % (45-73); Platelet Count 236 X10*3/uL (160-400); Red Cell Distribution Width 12.7 % (11.0-16.0); White Blood Count 6.6 X10*3/uL (4.8-10.8)
[2025-03-11 14:09] LABS: Alanine Aminotransferase 35 U/L (0-31); Albumin Level 4.3 g/dL (3.5-5.0); Alkaline Phosphatase 63 U/L (39-117); Anion Gap 10 (12-20); Aspartate Amino Transferase 48 U/L (5-31); Bilirubin Total 0.6 mg/dL (0.0-1.0); Blood Urea Nitrogen 11 mg/dL (9-16); Calcium 9.4 mg/dL (8.4-10.2); Carbon Dioxide 27 mmol/L (22-29); Chloride 106 mmol/L (96-108); Cholesterol 177 mg/dL (<200); Estimated Glomerular Filt Rate > 60; Glucose Random 136 mg/dL (60-115); HDL Cholesterol 65 mg/dL (>40); LDL Cholesterol Calculated 77 mg/dL (<100); Potassium 3.9 mmol/L (3.3-5.1); Sodium 139 mmol/L (135-145); Triglycerides 178 mg/dL (<150)
[2025-03-11 14:11] LABS: Free T4 (Free Thyroxine) 0.91 ng/dL (0.71-1.85); Thyroid Stimulating Hormone 1.05 uIU/mL (0.32-4.0)
== END 2025-03-11 09:39 | disposition home or self-care (01) ==
LOC: HO.HMGCX 09:38
PROVIDERS: PCP Internal Medicine; Visit Provider Internal Medicine
DX: E11.65 Type 2 diabetes mellitus with hyperglycemia (principal); E78.00 Pure hypercholesterolemia, unspecified; M25.562 Pain in left knee
CPT/HCPCS: 36415; 73560; 80053; 80061; 84439; 84443; 85025

== ENCOUNTER → 2025-03-11 09:42 | Outpatient (BNV) | payer MEDICARE, BC, SELFPAY | PROVIDERS: PCP Internal Medicine; Visit Provider Radiology Diagnostic Radiology | DX: M17.12 Unilateral primary osteoarthritis, left knee (principal) | CPT/HCPCS: 73560 ==

== ENCOUNTER 2025-05-06 12:57 | Outpatient (AMB) | payer MEDICARE, BC, SELFPAY ==
--- NOTE | 2025-05-06 13:03 | MHC.OFFVIS ---
Vital Signs 05/06/25 13:28 Height 5 ft 2 in Weight 178 lb BMI 32.6 BP 130/79 Blood Pressure Location Lt brachial Position Sitting Pulse 76 Intake Visit Reasons: 6m breast exam Intake Note: Patient is seen in office for 6 month follow up visit, breast exam. Pt c/o: denies any concerns at the time of visit mm: 02/07/25 Print Inspector Required: No Senior Partner: Senior Partner Present Accompanied by: Self / Same As Patient Allergies adhesive tape Allergy (Intermediate, Verified 05/06/25 13:04) Rash paper tape Allergy (Intermediate, Uncoded 05/06/25 13:04) Blister HPI Comments Details: 70-year-old female patient returning for a routine breast examination. She was found to have a left breast grouped punctate calcifications in the 1 o'clock position of to be suspicious for malignancy. Stereotactic guided core biopsy on 02/11/2022 revealed atypical lobular hyperplasia, columnar cell change and hyperplasia without atypia, with microcalcifications, benign lobules with microcalcifications, lobular atrophy and stromal fibrosis. She underwent lumpectomy with needle localization on 03/02/2022. Pathology confirmed atypical lobular hyperplasia (multifocal) and atypical ductal hyperplasia (single focus). Her postoperative course was complicated by a seroma require needle aspiration. She was evaluated by Dr. Brandt and started on raloxifene. She reports hot flashes associated with this medication. Her family history is significant for her mother developing breast cancer in her 60s as well as other sister developing breast cancer in her 50s. Her sister subsequently developed a recurrence 10 years later while in her 60s and subsequently required a mastectomy. The patient is and she did not breast feed her child. Her most recent mammogram of her most recent mammogram dated 02/07/2025 revealed no mammographic evidence of malignancy (BI-RADS 2). She feels well and reports no ongoing breast symptoms at this time. [facility] Medical History Impaired glucose tolerance Abnormal mammogram of left breast Elevated LFTs Postmenopausal Atypical lobular hyperplasia of left breast Hyperglycemia Murmur Situational anxiety Hyperlipidemia Chronic back pain Postmenopausal Annual physical exam Hypertension Aortic stenosis Surgical History History of lumpectomy of left breast S/P lumpectomy, left breast (03/02/22) Hx of repair of rotator cuff H/O colonoscopy History of back surgery Hx of tonsillectomy Family History Mother CVD (cardiovascular disease) Breast cancer, Onset Age: 60 Father Parkinson disease Brother Prostate cancer Sister Breast cancer, Onset Age: 50 Social History Household Members: Spouse Housing: House Are you a primary healthcare business analyst to a significant other at home: No Do you presently have visiting nurse or other home services: No Alcohol intake: never Patient Tobacco Use Status: Never used Tobacco Tobacco use type: Cigarette e-Cigarette/Vaping Use: Never Used Second Hand Smoke Exposure: No service: No Current occupational status: retired Cognitive needs: No Hearing needs: No Vision needs: Yes Female Reproductive History Menstrual Age of Menarche: 14 Review of Systems Const All systems reviewed & are unremarkable except as noted in HPI and below Physical Exam Const General: no acute distress Neck Neck: Yes normal visual inspection and Yes no lymphadenopathy Chest Other: Left breast: Well-healed incision in the upper outer quadrant without redness or discharge. Scar is much softer with no seroma/hematoma. No new palpable mass, skin change, nipple discharge, or enlarged lymph nodes. Right breast: No skin change, nipple discharge, palpable mass, or enlarged lymph nodes. Resp Effort & Inspection: normal respiratory effort Skin General skin exam: no rashes or lesions noted Neuro Other: Mobility Assessment: 1. 3 meter assessment time (seconds): 5 2. Gait observations: Normal balance and gait Assessment & Plan Assessment & Plan (1) Atypical ductal hyperplasia of left breast: Comment: Started on Raloxifene 03/13, f/u [facility] oncology Code(s): N60.92 - Unspecified benign mammary dysplasia of left breast Category: Medical (2) Atypical lobular hyperplasia of left breast: Code(s): N60.92 - Unspecified benign mammary dysplasia of left breast Category: Medical Plan Patient returns for follow-up examination following left breast lumpectomy for atypical lobular hyperplasia and atypical ductal hyperplasia. She was evaluated by Dr. Brandt and started on antiestrogen therapy. Examination today reveals no suspicious findings in either breast. Her most recent mammogram of 02/07/2025 revealed no suspicious findings in either breast (BI-RADS 2). I recommended follow-up examination in 6 months, sooner PRN. Coding Level of Care Code Est Pt Level 3 (84897) Complex EM visit Add On G2211 Diagnoses Atypical ductal hyperplasia of left breast N60.92 Atypical lobular hyperplasia of left breast N60.92
[2025-05-06 13:28] VITALS: BP 130/79; PULSE 76; BMI 32.6
--- OUTSIDE RECORDS SUMMARY | 2025-05-06 14:12 | XMS_ITS | Clinical Summary ---
Author Organization [facility] Address [address] [place] [address] Care Team Providers Care Windows Server Administrator Name Role Phone Unavailable Primary Care Provider [...]
--- OUTSIDE RECORDS SUMMARY | 2025-05-06 14:12 | XMS_ITS | Patient Health Record ---
Author Organization [facility] Address [address] [place] [address] Care Team Providers Care Tank Wagon Operator Name Role Phone Marlen Curran MD Primary Care Provider Yoseph Cartagena Unavailable [phone] Allergies Allergen (clinical drug ingredient) Drug/Non Drug [...] for 30 day(s) Active Vitamin E Beauty 40734 UNIT/52ML as directed Externally Activ e Multi [...] Problem Status W/U Status Risk Notes Problem 168210065 Encounter for screening for malignant neoplasm of colon (Z12.11) Active confirmed Problem 870266861 History of adenomatous polyp of colon (Z86.010) Active confirmed Problem 40639272 Hypertension (I10) Active confirmed Problem Screening for malignant neoplasm of rectum (455260281) Encounter for screening for malignant neoplasm of rectum (Z12.12) Active confirmed Problem 878355914 Elevated liver enzymes (R74.8) Active confirmed Problem 235961652 Fatty liver (K76.0) Active confirmed Problem 032627203 Family history o f colon cancer (Z80.0) Active confirmed Problem 052013344 Long-term use of aspirin therapy (Z79.82) Active confirmed Problem Diverticulosis of colon (546270594) Diverticulosis of colon (K57.30) Active confirmed Plan [...] MEDICARE OF [place] [address] [facility] [place] [address] [phone] [id number] PETE SHAFFER Self - patient is the insured [facility] [address] [place], [place] [phone] [id number] PETE SHAFFER Self - patient is the insured Medical (General) History Medical History History ICD Code Denies [place],DM,CVA,Lung disease,renal dise ase Colonoscopy in 2005 and [...]
--- OUTSIDE RECORDS SUMMARY | 2025-05-06 14:13 | XMS_ITS ---
Author Name [facility] Organization Unknown Care Team Organization Name Specialty Phone Email Start Date End Da criss [facility] Ren Keller MD Primary Care 07/15/2021 06/10/2024
== END 2025-05-06 13:29 | disposition home or self-care (01) ==
LOC: HO.HGS 12:58
PROVIDERS: PCP Internal Medicine; Visit Provider Surgery
DX: N60.92 Unspecified benign mammary dysplasia of left breast (principal)
CPT/HCPCS: 99213; G2211

== ENCOUNTER → 2025-05-06 12:57 | Outpatient (BNVA) | payer MEDICARE, BC, SELFPAY | PROVIDERS: PCP Internal Medicine; Visit Provider Surgery | DX: N60.92 Unspecified benign mammary dysplasia of left breast (principal); Z80.3 Family history of malignant neoplasm of breast | CPT/HCPCS: 99212 ==

== ENCOUNTER 2025-05-19 12:43 | Outpatient (AMB) | payer MEDICARE, BC, SELFPAY ==
--- NOTE | 2025-05-19 12:46 | A.OFFVIS_ITS ---
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 Patient reports that she had had ongoing left knee pain since February of this year, but also notes that she had a history of a Tibial Plateau Fracture about 20 year. Her knee is painful all the time, worsened with gait initiation. She is taking OTC NSAID which does help her. No previous injections. Allergies adhesive tape Allergy (Intermediate, Verified 05/06/25 13:04) Rash paper tape Allergy (Intermediate, Uncoded 05/06/25 13:04) Blister HPI HPI SEWER CONNECTOR-Unilateral primary osteoarthritis, left knee: Details: Saadia is a 70 year old female who presents today as a New Patient with complaints of Left Knee Pain. Patient reports that she had had ongoing left knee pain since February of this year, but also notes that she had a history of a Tibial Plateau Fracture about 20 year. Her knee is painful all the time, worsened with gait initiation. She is taking OTC NSAID which does help her. No previous injections. [facility] Medical History Impaired glucose tolerance Abnormal mammogram of left breast Elevated LFTs Postmenopausal Atypical lobular hyperplasia of left breast Hyperglycemia Murmur Situational anxiety Hyperlipidemia Chronic back pain Postmenopausal Annual physical exam Hypertension Aortic stenosis Surgical History History of lumpectomy of left breast S/P lumpectomy, left breast (03/02/22) Hx of repair of rotator cuff H/O colonoscopy History of back surgery Hx of tonsillectomy Family History Mother CVD (cardiovascular disease) Breast cancer, Onset Age: 60 Father Parkinson disease Brother Prostate cancer Sister Breast cancer, Onset Age: 50 Social History Household Members: Spouse Housing: House Are you a primary intensive care ambulance paramedic to a significant other at home: No Do you presently have visiting nurse or other home services: No Alcohol intake: never Patient Tobacco Use Status: Never used Tobacco Tobacco use type: Cigarette e-Cigarette/Vaping Use: Never Used Second Hand Smoke Exposure: No service: No Current occupational status: retired Cognitive needs: No Hearing needs: No Vision needs: Yes Female Reproductive History Menstrual Age of Menarche: 14 Physical Exam Vital Signs: BMI result Body Mass Index 32.0 Extrem Other: Left knee is notable for sharp tenderness to palpation over the lateral aspect of the lateral femoral condyle and the lateral aspect of the lateral tibial plateau. She has no effusion. She has an antalgic gait. She is stable to varus and valgus stress. No medial compartment tenderness. + lateral Steinmen's. Results Reviewed Results Reviewed: I personally reviewed relevant radiographs. There is minimal medial compartment arthrosis but largely unremarkable radiographs. Assessment & Plan Assessment & Plan (1) Internal derangement of left knee: Code(s): M23.92 - Unspecified internal derangement of left knee Category: Medical Plan: This is a 70-year-old woman with sharp tenderness to palpation over the lateral compartment. She walks with a antalgia. This is been present now for 3 months. It is not improving. Her radiographs are unremarkable and I am concerned that she has subchondral insufficiency fracture versus internal derangement. She does have a positive Jon's as well and I would recommend MRI to assess. Coding Level of Care Code New Pt Level 3 (34663) Diagnoses Internal derangement of left knee M23.92
[2025-05-19 12:47] VITALS: BMI 32.0
--- OUTSIDE RECORDS SUMMARY | 2025-05-19 13:28 | XMS_ITS | Clinical Summary ---
Author Organization [facility] Address [address] [place] [address] Care Team Providers Care Oil Program Compliance Specialist Name Role Phone Unavailable Primary Care Provider [...]
--- OUTSIDE RECORDS SUMMARY | 2025-05-19 13:28 | XMS_ITS | Patient Health Record ---
Author Organization [facility] Address [address] [place] [address] Care Team Providers Care Seaweed Harvester Name Role Phone Marlen Curran MD Primary Care Provider Yoseph Cartagena Unavailable [phone] Allergies Allergen (clinical drug ingredient) Drug/Non Drug [...] for 30 day(s) Active Vitamin E Beauty 85690 UNIT/52ML as directed Externally Activ e Multi [...] Problem Status W/U Status Risk Notes Problem 288981649 Encounter for screening for malignant neoplasm of colon (Z12.11) Active confirmed Problem 946982281 History of adenomatous polyp of colon (Z86.010) Active confirmed Problem 25060398 Hypertension (I10) Active confirmed Problem Screening for malignant neoplasm of rectum (428357309) Encounter for screening for malignant neoplasm of rectum (Z12.12) Active confirmed Problem 065592207 Elevated liver enzymes (R74.8) Active confirmed Problem 425987295 Fatty liver (K76.0) Active confirmed Problem 562338398 Family history o f colon cancer (Z80.0) Active confirmed Problem 139282640 Long-term use of aspirin therapy (Z79.82) Active confirmed Problem Diverticulosis of colon (857113246) Diverticulosis of colon (K57.30) Active confirmed Plan [...] Date MEDICARE OF [place] [address] [facility] [place] [address] [phone] [id number] PETE SHAFFER Self - patient is the insured [facility] [address] [place], [place] [id number] [phone] [id number] PETE SHAFFER Self - patient is the insured Medical (General) History Medical History History ICD Code Denies [place],DM,CVA,Lung disease,renal dise ase Colonoscopy in 2005 and [...]
== END 2025-05-19 13:33 | disposition home or self-care (01) ==
LOC: HO.HOS 12:43
PROVIDERS: PCP Internal Medicine; Visit Provider Orthopaedic Surgery
DX: M23.92 Unspecified internal derangement of left knee (principal)
CPT/HCPCS: 99203

== ENCOUNTER → 2025-05-19 12:43 | Outpatient (BNVA) | payer MEDICARE, BC, SELFPAY | PROVIDERS: PCP Internal Medicine; Visit Provider Orthopaedic Surgery | DX: M23.92 Unspecified internal derangement of left knee (principal) | CPT/HCPCS: 99202 ==

== ENCOUNTER 2025-05-21 12:33 | Outpatient (AMB) | payer MEDICARE, BC, SELFPAY ==
--- OUTSIDE RECORDS SUMMARY | 2025-05-21 13:08 | XMS_ITS | Clinical Summary ---
Author Organization [facility] Address [address] [place] [address] Care Team Providers Care Repossessor Name Role Phone Unavailable Primary Care Provider [...]
--- OUTSIDE RECORDS SUMMARY | 2025-05-21 13:08 | XMS_ITS | Patient Health Record ---
Author Organization [facility] Address [address] [place] [address] Care Team Providers Care Chain Splitter Name Role Phone Marlen Curran MD Primary Care Provider Yoseph Cartagena Unavailable [phone] Allergies Allergen (clinical drug ingredient) Drug/Non Drug [...] for 30 day(s) Active Vitamin E Beauty 61558 UNIT/52ML as directed Externally Activ e Multi [...] Problem Status W/U Status Risk Notes Problem 894643009 Encounter for screening for malignant neoplasm of colon (Z12.11) Active confirmed Problem 488142887 History of adenomatous polyp of colon (Z86.010) Active confirmed Problem 59690056 Hypertension (I10) Active confirmed Problem Screening for malignant neoplasm of rectum (510857030) Encounter for screening for malignant neoplasm of rectum (Z12.12) Active confirmed Problem 649698356 Elevated liver enzymes (R74.8) Active confirmed Problem 751777999 Fatty liver (K76.0) Active confirmed Problem 921151255 Family history o f colon cancer (Z80.0) Active confirmed Problem 719967106 Long-term use of aspirin therapy (Z79.82) Active confirmed Problem Diverticulosis of colon (588226896) Diverticulosis of colon (K57.30) Active confirmed Plan [...] Date MEDICARE OF [place] [address] [facility] [place] [address] [id number] PETE SHAFFER Self - patient is the insured [facility] [address] [place], [place] [id number] PETE SHAFFER Self - patient is the insured Medical (General) History Medical History History ICD Code Denies [place],DM,CVA,Lung disease,renal dise ase Colonoscopy in 2005 and [...]
[2025-05-21 13:14] VITALS: BP 148/65; PULSE 65; BMI 32.3
--- NOTE | 2025-05-21 13:14 | MHC.OFFVIS ---
Vital Signs 05/21/25 13:14 Height 5 ft 2 in Weight 176 lb 5.917 oz BMI 32.3 BP 148/65 H Blood Pressure Location Lt brachial Position Sitting Pulse 65 Intake Visit Reasons: 6m follow up Intake Note: 6 month with ekg feeling good Mortuary Operations Manager Required: No Allergies adhesive tape Allergy (Intermediate, Verified 05/06/25 13:04) Rash paper tape Allergy (Intermediate, Uncoded 05/06/25 13:04) Blister Medication List - Last Reconciled 05/21/25 by Jonathan Braun MD amlodipine 2.5 mg PO DAILY aspirin (Adult Low Dose Aspirin) 81 mg PO DAILY atenolol 50 mg PO DAILY multivitamin 1 tab PO DAILY raloxifene 60 mg PO DAILY rosuvastatin 20 mg PO DAILY trazodone 100 mg PO BEDTIME PRN HPI Comments Details: Pleasant 70-year-old female here for first OV. She has been referred for murmur. Her echo is showing mild and PFO. She is active and quite adventueous. She has no symptoms. She is on atenolol for HTN. She takes a baby ASA. Echocardiography is showing moderate aortic stenosis. She continues to be asymptomatic on follow-up and in particular denies shortness of breath, chest pain and syncope. She was sent for repeat echocardiography which is showing [id number] aortic stenosis. She returns for follow-up today. She has been doing well. She has no chest pain or shortness of breath. 02/21/24: She returns for follow-up. She had repeat echocardiography recently which showing moderate aortic valve stenosis. She is denying any dizziness or lightheadedness. No shortness of breath. She had 1 episode of chest discomfort 2 weeks ago when she was laying in bed with lasted for 20 minutes. She is saying it was a pain in the chest and she could not describe it differently. She has not had any further chest discomforts since then. She has been active and exercises regularly without any exertional symptoms. The pressure is elevated in the office. 11/20/2024: She returns for follow-up. She continues to walk regularly without any exertional symptoms. No chest discomfort shortness of breath. No dizziness/syncope. Previously had moderate aortic valve stenosis. 05/21/2025: Here for follow-up. She was diagnosed with left breast cancer and had lumpectomy performed. Likely this was all localized and now she is on raloxifene. She is saying her blood pressure has been higher since she started taking duloxetine. She is on atenolol and amlodipine 2.5 mg daily. No side effects from medications. [facility] Medical History Impaired glucose tolerance Abnormal mammogram of left breast Elevated LFTs Postmenopausal Atypical lobular hyperplasia of left breast Hyperglycemia Murmur Situational anxiety Hyperlipidemia Chronic back pain Postmenopausal Annual physical exam Hypertension Aortic stenosis Surgical History History of lumpectomy of left breast S/P lumpectomy, left breast (03/02/22) Hx of repair of rotator cuff H/O colonoscopy History of back surgery Hx of tonsillectomy Family History Mother CVD (cardiovascular disease) Breast cancer, Onset Age: 60 Father Parkinson disease Brother Prostate cancer Sister Breast cancer, Onset Age: 50 Social History Household Members: Spouse Housing: House Are you a primary day care home provider to a significant other at home: No Do you presently have visiting nurse or other home services: No Alcohol intake: never Patient Tobacco Use Status: Never used Tobacco Tobacco use type: Cigarette e-Cigarette/Vaping Use: Never Used Second Hand Smoke Exposure: No service: No Current occupational status: retired Cognitive needs: No Hearing needs: No Vision needs: Yes Female Reproductive History Menstrual Age of Menarche: 14 Review of Systems Const Denies chills, Denies fatigue, Denies fever(s), Denies frequent falls, Denies weakness, Denies weight gain and Denies weight loss ENT Denies dizziness Card Denies chest pain, Denies leg edema, Denies lightheadedness, Denies palpitations, Denies dyspnea, Denies dyspnea on exertion, Denies orthopnea and Denies other (loss of consciousness) Resp Denies cough, Denies dyspnea and Denies dyspnea on exertion GI Denies hematochezia and Denies change in stool character Musc Denies abnormal gait, Denies muscle weakness, Denies numbness, Denies radiating pain into limb and Denies tingling Neuro Denies abnormal gait, Denies dizziness, Denies frequent falls, Denies numbness, Denies tingling and Denies weakness Endo Denies fatigue and Denies palpitations Physical Exam Vital Signs: Last Vital Signs Pulse 65 05/21/25 13:14 BP 148/65 H 05/21/25 13:14 BMI result Body Mass Index 32.3 GENERAL APPEARANCE: in no acute distress, well developed, well nourished. NECK/THYROID: no carotid bruit, no jugular venous distention. Carotid upstrokes are normal. SKIN: no suspicious lesions, warm and dry. HEART: Ejection systolic murmur aortic area, preserved 2nd heart sound.. LUNGS: clear to auscultation bilaterally. ABDOMEN: normal, bowel sounds present, soft, nontender, nondistended. EXTREMITIES: no clubbing, cyanosis, or edema. PERIPHERAL PULSES: equal. NEUROLOGIC: nonfocal, alert and oriented. Office Procedures EKG Details: Sinus rhythm 66 beats per minute, first-degree AV block with AL interval 248 milliseconds, normal axis, normal ECG, QTC 446 milliseconds. 00512-[id number], Complete Assessment & Plan Assessment & Plan (1) Hypertension: Code(s): I10 - Essential (primary) hypertension Category: Medical Qualifiers: Hypertension type: primary hypertension Qualified Code(s): I10 - Essential (primary) hypertension (2) Aortic stenosis: Comment: 1.15 cm 01/2024, November 2024 1.12 Code(s): I35.0 - Nonrheumatic aortic (valve) stenosis Category: Medical Qualifiers: Cardiac valve disease etiology: nonrheumatic Qualified Code(s): I35.0 - Nonrheumatic aortic (valve) stenosis Plan Pleasant 70 year female moderate aortic valve stenosis. She was diagnosed with breast cancer underwent surgery. She is on raloxifene. She is saying since he started loxapine her blood pressure has been higher. Her blood pressure in the office is higher today. I have started her on hydrochlorothiazide. We will see her back in few months. Stable from aortic stenosis point of view. Thank you for allowing me to participate in the care of your patient. Please feel free to contact me if you have any questions. Medications: New hydrochlorothiazide 25 mg PO DAILY 60 tabs 3RF I10 - Essential (primary) hypertension Coding Level of Care Code Est Pt Level 4 (07896) Diagnoses Primary hypertension I10 Hypertension type: primary hypertension Nonrheumatic aortic valve stenosis I35.0 Cardiac valve disease etiology: nonrheumatic CPT Codes EKG - CPT: 77760-Mtjzhnzkrsgqjimpc, Complete ([id number])
== END 2025-05-21 13:38 | disposition home or self-care (01) ==
LOC: HO.HCS 12:34
PROVIDERS: PCP Internal Medicine; Visit Provider Internal Medicine Cardiovascular Disease
DX: I44.0 Atrioventricular block, first degree (principal)
CPT/HCPCS: 93010; 99214

== ENCOUNTER → 2025-05-21 12:33 | Outpatient (BNVA) | payer MEDICARE, BC, SELFPAY | PROVIDERS: PCP Internal Medicine; Visit Provider Internal Medicine Cardiovascular Disease | DX: I35.0 Nonrheumatic aortic (valve) stenosis (principal); I10 Essential (primary) hypertension | CPT/HCPCS: 93005; 99212 ==

== ENCOUNTER 2025-06-01 14:07 | Outpatient (REF) | payer MEDICARE, BC, SELFPAY ==
--- NOTE | ~2025-06-01 | MR_ITS ---
CLINICAL HISTORY: M23.92 - Unspecified internal derangement of left knee MR left knee without gadolinium Comparison: None provided Findings: No fractures. No pathologic bone lesions. The articular cartilage is also intact. There is a small joint effusion. The PCL and collateral ligaments are intact. Patellar retinacula and iliotibial band are intact. Quadriceps and patellar tendons are intact. There is a parameniscal cyst adjacent to the posterior horn of the medial meniscus. A meniscal tear is not identified The ACL is edematous suggesting an interstitial tear. This is particularly evident at its proximal origin. There is mild prepatellar edema. IMPRESSION: 1. Edematous ACL with interstitial tear. 2. Small joint effusion. This document has been electronically signed by: Jairo Sahu MD on 06/03/2025 13:17:39
--- OUTSIDE RECORDS SUMMARY | 2025-06-01 14:09 | XMS_ITS | Patient Health Record ---
Author Organization [facility] Address [address] [place] [address] Care Team Providers Care Transitional Studies Instructor Name Role Phone Marlen Curran MD Primary Care Provider Yoseph Cartagena Unavailable [phone] Allergies Allergen (clinical drug ingredient) Drug/Non Drug [...] for 30 day(s) Active Vitamin E Beauty 05435 UNIT/52ML as directed Externally Activ e Multi [...] Problem Status W/U Status Risk Notes Problem 399207194 Encounter for screening for malignant neoplasm of colon (Z12.11) Active confirmed Problem 758627379 History of adenomatous polyp of colon (Z86.010) Active confirmed Problem 26262206 Hypertension (I10) Active confirmed Problem Screening for malignant neoplasm of rectum (616025561) Encounter for screening for malignant neoplasm of rectum (Z12.12) Active confirmed Problem 725140098 Elevated liver enzymes (R74.8) Active confirmed Problem 851775190 Fatty liver (K76.0) Active confirmed Problem 874653645 Family history o f colon cancer (Z80.0) Active confirmed Problem 957390864 Long-term use of aspirin therapy (Z79.82) Active confirmed Problem Diverticulosis of colon (325454015) Diverticulosis of colon (K57.30) Active confirmed Plan [...] Date MEDICARE OF [place] [address] [facility] [place] [address] [id number] PETE SHAFFER Self - patient is the insured [facility] [address] [place], [place] [phone] [id number] PETE SHAFFER Self - patient is the insured Medical (General) History Medical History History ICD Code Denies [place],DM,CVA,Lung disease,renal dise ase Colonoscopy in 2005 and [...]
--- OUTSIDE RECORDS SUMMARY | 2025-06-01 14:09 | XMS_ITS | Clinical Summary ---
Author Organization [facility] Address [address] [place] [address] Care Team Providers Care Prospecting Observer Name Role Phone Unavailable Primary Care Provider [...]
== END 2025-06-01 14:08 | disposition home or self-care (01) ==
LOC: HO.MRI 14:07
PROVIDERS: PCP Internal Medicine; Visit Provider Orthopaedic Surgery
DX: M23.92 Unspecified internal derangement of left knee (principal)
CPT/HCPCS: 73721

== ENCOUNTER 2025-06-27 13:57 | Outpatient (AMB) | payer MEDICARE, BC, SELFPAY ==
--- NOTE | 2025-06-27 14:10 | A.OFFPC_ITS ---
Vital Signs 06/27/25 14:11 Height 5 ft 2 in Weight 177 lb BMI 32.4 BP 122/76 Blood Pressure Location Lt brachial Position Sitting Pulse 65 Pulse Source Pulse Oximeter Pulse Oximetry (%) 99 Oxygen Delivery Method Room Air Intake Visit Reasons: DM Allergies adhesive tape Allergy (Intermediate, Verified 06/27/25 14:11) Rash paper tape Allergy (Intermediate, Uncoded 06/27/25 14:11) Blister Medication List - Last Reconciled 06/27/25 by Sandra Wood MD amlodipine 2.5 mg PO DAILY aspirin (Adult Low Dose Aspirin) 81 mg PO DAILY atenolol 50 mg PO DAILY hydrochlorothiazide 25 mg PO DAILY multivitamin 1 tab PO DAILY rosuvastatin 20 mg PO DAILY trazodone 100 mg PO BEDTIME PRN [vitamin E 1,200 mg PO DAILY] Tobacco use date assessed: 12/09/24 Fall risk assessment: No Falls in past year Last assessed Fall Risk: 06/27/25 Dental Screening Dental Screen Date: 03/10/25 HPI DM HPI Details stopped raloxifene due to nausea- off 6 months- seen hematology and oncology [facility] Medical History Impaired glucose tolerance Abnormal mammogram of left breast Elevated LFTs Postmenopausal Atypical lobular hyperplasia of left breast Hyperglycemia Murmur Situational anxiety Hyperlipidemia Chronic back pain Postmenopausal Annual physical exam Hypertension Aortic stenosis Surgical History History of lumpectomy of left breast S/P lumpectomy, left breast (03/02/22) Hx of repair of rotator cuff H/O colonoscopy History of back surgery Hx of tonsillectomy Family History Mother CVD (cardiovascular disease) Breast cancer, Onset Age: 60 Father Parkinson disease Brother Prostate cancer Sister Breast cancer, Onset Age: 50 Social History Household Members: Spouse Housing: House Are you a primary nursing care attendant to a significant other at home: No Do you presently have visiting nurse or other home services: No Alcohol intake: never Patient Tobacco Use Status: Never used Tobacco Tobacco use type: Cigarette e-Cigarette/Vaping Use: Never Used Second Hand Smoke Exposure: No service: No Current occupational status: retired Cognitive needs: No Hearing needs: No Vision needs: Yes Female Reproductive History Menstrual Age of Menarche: 14 Questionnaire PHQ-9 Over the last 2 weeks, how often have you been bothered by any of the following problems? 1. Little interest or pleasure in doing things: not at all 2. Feeling down, depressed, or hopeless: not at all 3. Trouble falling or staying asleep, or sleeping too much: not at all 4. Feeling tired or having little energy: not at all 5. Poor appetite or overeating: not at all 6. Feeling bad about yourself - or that you are a failure or have let yourself or your family down: not at all 7. Trouble concentrating on things, such as reading the newspaper or watching television: not at all 8. Moving or speaking so slowly that other people could have noticed. Or the opposite - being so fidgety or restless that you have been moving around a lot more than usual: not at all 9. Thoughts that you would be better off or of hurting yourself in some way: not at all Total score: 0 Depression Screening Interpretation: Negative Depression Screening Done: Yes Source: Developed by Drs. Yoseph Herbert, Twyla Horne, Artemio Cali and colleagues, with an educational kika from [employer]. Thrive Questionnaire Date Thrive assessed: 03/08/25 I am a: Patient What is your living situation today?: I have a steady place to live Within the past 12 months, did the food you bought not last and you didn't have the money to get more?: Never true Within the past 12 months, did you worry whether your food would run out before you got money to buy more?: Never true Do you have trouble paying for medicines?: No Do you have trouble getting transportation to medical appointments?: No Do you have trouble paying your heating and electricity bill?: No Do you have trouble taking care of your child, family member or friend?: No Do you have trouble with day-to-day activities such as bathing, preparing meals, shopping, managing finances, etc.?: No Are you currently unemployed and looking for a job?: No Are you interested in more education?: No Please select the resources that you would like help with: None Currently or been in a relationship where the following occur: No concerns reported THRIVE Score: 0 AUDIT C Alcohol Use Questionnaire (AUDIT-C) 1. How often do you have a drink containing alcohol?: Never 3. How often do you have six or more drinks on one occasion?: Never Total Score: 0 AIYANA-7 AMB Questionnaire AIYANA-7 Date AIYANA - 7 assessed: 12/09/24 Source: Developed by Drs. Yoseph Herbert, Twyla Horne, Artemio Cali and colleagues, with an educational kika from [employer]. Physical exam (Primary Care) Vital Signs: Last Vital Signs Pulse 65 06/27/25 14:11 BP 122/76 06/27/25 14:11 Pulse Ox 99 06/27/25 14:11 Oxygen Delivery Method Room Air 06/27/25 14:11 BMI result Body Mass Index 32.4 Tobacco/Smoking Status: Tobacco use Status Tobacco use date assessed 12/09/24 06/27/25 14:21 Patient Tobacco Use Status Never used Tobacco 06/27/25 14:21 Tobacco use type Cigarette 06/27/25 14:21 e-Cigarette/Vaping Use Never Used 06/27/25 14:21 PHQ-9: PHQ-9 Score PHQ-9: Total score 0 06/27/25 14:37 Depression Screening Interpretation: Negative Thrive Assessment: Date of Thrive Assessment Date Thrive assessed 03/08/25 06/27/25 14:21 Currently or been in a relationship where the following occur: No concerns reported Const General: alert; No acute distress Eyes Conjunctivae: conjunctivae normal Resp Auscultation: clear to auscultation bilaterally Cardio Rate: regular rate Rhythm: regular rhythm GI Inspection: Yes normal to inspection Extrem General: Yes normal to inspection and No edema Results AMB Hemoglobin A1c AMB Hemoglobin A1c 5.9 % Last Edit by Dang Gerard CMA on 06/27/25 14 :30 Results Reviewed Results Reviewed: Laboratory Last Values Hgb A1c (Clinic) 5.9 % (4.0-6.0) 06/27/25 14:29 Coding Level of Care Code Est Pt Level 4 (12128) Complex EM visit Add On G2211 Diagnoses Primary hypertension I10 Hypertension type: primary hypertension Nonrheumatic aortic valve stenosis I35.0 Cardiac valve disease etiology: nonrheumatic Pure hypercholesterolemia E78.00 Hyperlipidemia type: pure hypercholesterolemia Type 2 diabetes mellitus with hyperglycemia, without long-term current use of insulin E11.65 Diabetes mellitus nursing home insulin use: without terminal system operator use Fatty liver K76.0 Left renal stone N20.0 Atypical ductal hyperplasia of left breast N60.92 Osteoarthritis of left knee M17.12 Assessment & Plan Assessment & Plan (1) Hypertension: Code(s): I10 - Essential (primary) hypertension Category: Medical Qualifiers: Hypertension type: primary hypertension Qualified Code(s): I10 - Essential (primary) hypertension Plan: Continue with blood pressure medication. Decrease salt intake and exercise on amlodipine 2.5 mg once a day atenolol 50 mg once a day and recently added hydrochlorothiazide 25 mg once a day. (2) Aortic stenosis: Comment: 1.15 cm 01/2024, November 2024 1.12 Code(s): I35.0 - Nonrheumatic aortic (valve) stenosis Category: Medical Qualifiers: Cardiac valve disease etiology: nonrheumatic Qualified Code(s): I35.0 - Nonrheumatic aortic (valve) stenosis Plan: Continuing to monitor (3) Hyperlipidemia: Code(s): E78.5 - Hyperlipidemia, unspecified Category: Medical Qualifiers: Hyperlipidemia type: pure hypercholesterolemia Qualified Code(s): E78.00 - Pure hypercholesterolemia, unspecified Plan: Avoid fried foods, chicken skin, eggs, butter margarine, pastries and meat. Be it pork or beef they have a lot of cholesterol on rosuvastatin 20 mg once a day LDL goal of less than 130 and triglyceride of less than 150. (4) Type 2 diabetes mellitus with hyperglycemia: Comment: Dr. Bahena Code(s): E11.65 - Type 2 diabetes mellitus with hyperglycemia Category: Medical Qualifiers: Diabetes mellitus terminal system operator insulin use: without terminal system operator use Qualified Code(s): E11.65 - Type 2 diabetes mellitus with hyperglycemia Plan: Decrease the amount of carbohydrate intake, pasta, bread, rice and potatoes are all sugar and that is aside from all the sweet stuff, remember that fruits are good but they are Sweet also. Hemoglobin A1c goal of less than 7.0 patient is under control (5) Fatty liver: Comment: Liver ultrasound showed fatty liver and normal gallbladder 08/13 Code(s): K76.0 - Fatty (change of) liver, not elsewhere classified Category: Medical Plan: Low-fat diet and exercise (6) Left renal stone: Comment: 05/2022 Code(s): N20.0 - Calculus of kidney Category: Medical Plan: Keep well hydrated. (7) Atypical ductal hyperplasia of left breast: Comment: Started on Raloxifene 03/13, f/u [facility] [place] Code(s): N60.92 - Unspecified benign mammary dysplasia of left breast Category: Medical Plan: Patient is being followed up by hematology oncology and the surgeon. Option of changing raloxifene to a different medication. (8) Osteoarthritis of left knee: Code(s): M17.12 - Unilateral primary osteoarthritis, left knee Category: Medical Plan: Patient is followed being followed up by ortho and had MRI done showing swelling. Plan History of Present Illness The patient is a 70-year-old female presenting for a follow-up visit for multiple chronic conditions and recent MRI findings. She has a history of atypical ductal hyperplasia of the breast diagnosed in February 2022. She is under ongoing surveillance by oncology, with mammography status current as of January 2025. She carries a diagnosis of hypertension and aortic stenosis, with the most recent echocardiogram in November 2024 documenting a stenosis measurement at 1.12. The patient has nephrolithiasis with a prior ultrasound in 2021 detecting a 4mm kidney stone and hepatic steatosis. Osteopenia was identified on a bone density scan in August 2023, with a subsequent test planned for September 19. The patient's diabetic status is managed reasonably well, as indicated by a blood glucose reading of 148 mg/dL and an improved hemoglobin A1c of 5.9% from a prior 6.4%. She reports adverse reactions such as nocturnal vomiting to relaxafine, which she halted for six months, restarted in February, but then discontinued due to progressive symptoms. Other medications include duloxetine, taken for approximately two and a half years, with declining tolerance. Recently, an MRI revealed a small joint effusion and an edematous ACL with an interstitial tear. However, the associated pain has subsided. Health Maintenance - Mammogram up to date as of January 2025. - Bone density test scheduled for September 19, 2023. - Colonoscopy performed in 2021, recommended interval of five years. - Blood pressure management ongoing, current status well-controlled. - Diabetic maintenance includes dietary management and monitoring, no current pharmacotherapy required. - Lipid management with LDL levels within target; triglyceride levels mildly elevated. Dietary modifications recommended. - Up-to-date on shingles, tetanus, and pneumococcal vaccinations; flu vaccine scheduled for July 2023. - Encouragement of healthy lifestyle with adequate hydration and physical activity. Social History - Engages in regular physical activity and maintains a high fluid intake. - Plans to spend the winter in [place] to avoid cold weather. Review of Systems - Musculoskeletal: Reports resolution of knee pain previously associated with MRI findings. - Gastrointestinal: Denies recent symptoms of pain related to nephrolithiasis. - Cardiovascular: Denies current symptoms related to aortic stenosis and hypertension. - Endocrine: Reports improved glycemic control, previously elevated liver enzyme levels due to hepatic steatosis. Physical Exam Results - Labs: Blood glucose 148 mg/dL; Hemoglobin A1c 5.9%. - Imaging: MRI (June 03, 2023) showing small joint effusion and edematous ACL with interstitial tear. - Ultrasound (2021): 4mm kidney stone and hepatic steatosis. Plan Patient was informed and verbally consented to the use of an ambient scribe for clinic note documentation during this visit. 1. Atypical Ductal Hyperplasia Of The Breast Continued follow-up with oncology. Mammogram surveillance remains current, with the last performed in January 2025. 2. Hypertension Blood pressure management remains effective. No medication changes were discussed during the visit. 3. Aortic Stenosis Observation of stenosis with surveillance via echocardiogram, most recently recorded as 1.12 from November 2024. No new symptoms reported. 4. Nephrolithiasis Patient reports no acute symptoms. Advise hydration and consideration for a follow-up ultrasound to reassess kidney stone status. 5. Hepatic Steatosis Monitor liver enzymes with dietary modifications emphasizing reduced animal protein intake and increased physical activity. 6. Osteopenia Bone density test scheduled for September 19, 2023. Encourage vitamin D and calcium intake, alongside weight-bearing exercises. 7. Diabetes Mellitus Current management with lifestyle interventions as HbA1c has improved to 5.9%. No pharmacotherapy indicated at present. 8. Small Joint Effusion With Edematous Acl Tear Patient reports pain resolution. Future monitoring via clinical evaluation as indicated. Discussion Notes During the visit, I discussed with the patient the findings related to her recent MRI, which indicated a small joint effusion and an edematous ACL with an interstitial tear. We reviewed the resolution of her symptoms and the potential need for future monitoring. For nephrolithiasis and hepatic steatosis, I reiterated the importance of maintaining adequate hydration and dietary modifications. For her metabolic conditions, including diabetes and cholesterol management, we emphasized the role of diet and exercise. We reviewed her vaccination status, confirming she is up to date, and encouraged continued healthy lifestyle practices, especially as she plans to avoid colder climates by spending the winter in [facility]. We also coordinated her upcoming appointments for bone density evaluation in August. The patient expressed understanding and agreement with the current management plan, and follow-up will be scheduled based on her needs and test results. Patient Instructions - Stay hydrated by drinking at least 4-5 bottles of water per day. - Continue with a healthy diet low in animal protein and rich in fruits and vegetables. - Ensure regular physical activity to maintain joint health and bone strength. - Follow through with scheduled mammograms, bone density tests, and any necessary follow-up imaging. - Monitor blood sugar levels and maintain dietary adjustments to keep HbA1c under control. - Seek medical attention promptly if you experience new or worsening symptoms. - Schedule and receive the flu vaccination in July, and continue with all recommended vaccinations. Orders: Orders US renal BI Today N20.0 - Calculus of kidney AMB Hemoglobin A1c Today Z13.9 - Encounter for screening, unspecified
[2025-06-27 14:11] VITALS: BP 122/76; PULSE 65; O2SAT 99; BMI 32.4
--- OUTSIDE RECORDS SUMMARY | 2025-06-27 14:27 | XMS_ITS | Patient Health Record ---
Author Organization [facility] Address [address] [place] [address] Care Team Providers Care Suspension Cord Tier Name Role Phone Marlen Curran MD Primary Care Provider Yoseph Cartagena Unavailable [phone] Allergies Allergen (clinical drug ingredient) Drug/Non Drug [...] for 30 day(s) Active Vitamin E Beauty 24620 UNIT/52ML as directed Externally Activ e Multi [...] Problem Status W/U Status Risk Notes Problem [id number] Encounter for screening for malignant neoplasm of colon (Z12.11) Active confirmed Problem 069918390 History of adenomatous polyp of colon (Z86.010) Active confirmed Problem 63305930 Hypertension (I10) Active confirmed Problem Screening for malignant neoplasm of rectum (673704895) Encounter for screening for malignant neoplasm of rectum (Z12.12) Active confirmed Problem 539209508 Elevated liver enzymes (R74.8) Active confirmed Problem 004000558 Fatty liver (K76.0) Active confirmed Problem 275773416 Family history o f colon cancer (Z80.0) Active confirmed Problem 296409178 Long-term use of aspirin therapy (Z79.82) Active confirmed Problem Diverticulosis of colon (741361383) Diverticulosis of colon (K57.30) Active confirmed Plan [...] Date MEDICARE OF [place] [address] [facility] [place] [address] [id number] PETE SHAFFER Self - patient is the insured [facility] [address] [place], [place] [id number] PETE SHAFFER Self - patient is the insured Medical (General) History Medical History History ICD Code Denies AR,DM,CVA,Lung disease,renal dise ase Colonoscopy in 2005 and [...]
--- OUTSIDE RECORDS SUMMARY | 2025-06-27 14:27 | XMS_ITS | Clinical Summary ---
Author Organization [facility] Address [address] [place] [address] Care Team Providers Care Credit Risk Specialist Name Role Phone Unavailable Primary Care [...] Health Maintenance Due Date Last Done Comments Advance Care Planning 1955 Hepatitis C Virus Screening 1955 DTaP/Tdap/Td Vaccines (1 - Tdap) 1972 Pneumococcal Vaccines 50+ (1 of 1 - PCV) 2003 Zoster (Shingles) Vaccine (1 of 2) 2003 COVID-19 Vaccine ( - 2023-2 5 season) 2025 RSV Vaccine 60 years and old er and Patients (1 - 1-dose 75+ series) 2028 Hepatitis B Vaccines Aged Out No long er eligible based on patient's age to complete this topic
== END 2025-06-27 14:55 | disposition home or self-care (01) ==
LOC: HO.HMCH 13:58
PROVIDERS: PCP Internal Medicine; Visit Provider Internal Medicine
DX: I10 Essential (primary) hypertension (principal); I35.0 Nonrheumatic aortic (valve) stenosis; E78.00 Pure hypercholesterolemia, unspecified; E11.65 Type 2 diabetes mellitus with hyperglycemia; K76.0 Fatty (change of) liver, not elsewhere classified; N20.0 Calculus of kidney; N60.92 Unspecified benign mammary dysplasia of left breast; M17.12 Unilateral primary osteoarthritis, left knee; Z13.9 Encounter for screening, unspecified

== ENCOUNTER → 2025-06-27 13:57 | Outpatient (BNVA) | payer MEDICARE, BC, SELFPAY | PROVIDERS: PCP Internal Medicine; Visit Provider Internal Medicine | DX: E11.65 Type 2 diabetes mellitus with hyperglycemia (principal); I10 Essential (primary) hypertension; I35.0 Nonrheumatic aortic (valve) stenosis; E78.00 Pure hypercholesterolemia, unspecified; K76.0 Fatty (change of) liver, not elsewhere classified; N20.0 Calculus of kidney; N60.92 Unspecified benign mammary dysplasia of left breast; M17.12 Unilateral primary osteoarthritis, left knee; M85.80 Other specified disorders of bone density and structure, unspecified site | CPT/HCPCS: 83036; 96127; 99212 ==

== ENCOUNTER 2025-07-21 11:18 | Outpatient (AMB) | payer MEDICARE, BC, SELFPAY ==
--- NOTE | 2025-07-21 11:20 | A.OFFVIS_ITS ---
Intake Visit Reasons: TEL/VID-MRI review left knee Intake Note: Saadia is a 70 year old female who presents today VIA telephone for an MRI review of her Left Knee. IMPRESSION: 1. Edematous ACL with interstitial tear. 2. Small joint effusion. Allergies adhesive tape Allergy (Intermediate, Verified 06/27/25 14:11) Rash paper tape Allergy (Intermediate, Uncoded 06/27/25 14:11) Blister HPI HPI TEL/VID-MRI review left knee: Details: Saadia is here for left knee MRI review. She states over the past several weeks her left knee has been feeling better but she underwent significant discomfort for over a month. She does not know why this happened and she does not know why it has gotten better. [facility] Medical History Impaired glucose tolerance Abnormal mammogram of left breast Elevated LFTs Postmenopausal Atypical lobular hyperplasia of left breast Hyperglycemia Murmur Situational anxiety Hyperlipidemia Chronic back pain Postmenopausal Annual physical exam Hypertension Aortic stenosis Surgical History History of lumpectomy of left breast S/P lumpectomy, left breast (03/02/22) Hx of repair of rotator cuff H/O colonoscopy History of back surgery Hx of tonsillectomy Family History Mother CVD (cardiovascular disease) Breast cancer, Onset Age: 60 Father Parkinson disease Brother Prostate cancer Sister Breast cancer, Onset Age: 50 Social History Household Members: Spouse Housing: House Are you a primary childbirth and infant care teacher to a significant other at home: No Do you presently have visiting nurse or other home services: No Alcohol intake: never Patient Tobacco Use Status: Never used Tobacco Tobacco use type: Cigarette e-Cigarette/Vaping Use: Never Used Second Hand Smoke Exposure: No service: No Current occupational status: retired Cognitive needs: No Hearing needs: No Vision needs: Yes Female Reproductive History Menstrual Age of Menarche: 14 Telehealth Telehealth Telehealth Platform: Telephone Location of provider rendering services: practice address Location of patient: address on file Patient Identification confirmed using: Name, : Yes Telehealth method: voice only Patient verbally consented to treatment: Yes Patient verbally consented to billing insurance company: Yes Patient informed of any privacy concerns related to visit: Yes Minutes spent on Phone/Video with Pt.: 10 Results Reviewed Results Reviewed: I personally reviewed the MR images. IMPRESSION: 1. Edematous ACL with interstitial tear. 2. Small joint effusion. Severe Assessment & Plan Assessment & Plan (1) Internal derangement of left knee: Code(s): M23.92 - Unspecified internal derangement of left knee Category: Medical Plan: This is a 68-year-old woman who is feeling better after having idiopathic knee pain. I suspect she likely had a flare-up of some patellofemoral OA. Her MRIs unremarkable otherwise. Her symptoms apparently have improved greatly. She can return to see me if problems arise but at this point she is doing well and no orthopedic intervention is warranted. Coding Level of Care Code Est Pt Level 3 (74442) Diagnoses Internal derangement of left knee M23.92
--- OUTSIDE RECORDS SUMMARY | 2025-07-21 12:48 | XMS_ITS | Patient Health Record ---
Author Organization [facility] Address [address] [place] [address] Care Team Providers Care Laborer/Grade Check Name Role Phone Marlen Curran MD Primary Care Provider Yoseph Cartagena Unavailable [phone] Allergies Allergen (clinical drug ingredient) Drug/Non Drug [...] for 30 day(s) Active Vitamin E Beauty 32217 UNIT/52ML as directed Externally Activ e Multi [...] Problem Status W/U Status Risk Notes Problem 565148387 Encounter for screening for malignant neoplasm of colon (Z12.11) Active confirmed Problem 906026416 History of adenomatous polyp of colon (Z86.010) Active confirmed Problem 49065109 Hypertension (I10) Active confirmed Problem Screening for malignant neoplasm of rectum (083838803) Encounter for screening for malignant neoplasm of rectum (Z12.12) Active confirmed Problem 297418815 Elevated liver enzymes (R74.8) Active confirmed Problem 140009364 Fatty liver (K76.0) Active confirmed Problem 408223303 Family history o f colon cancer (Z80.0) Active confirmed Problem 542013450 Long-term use of aspirin therapy (Z79.82) Active confirmed Problem Diverticulosis of colon (516873813) Diverticulosis of colon (K57.30) Active confirmed Plan [...] [address] [place] [address] [id number] PETE SHAFFER Self - patient is the insured [facility] [address] [place], [place] [id number] PETE SHAFFER Self - patient is the insured Medical (General) History Medical History History ICD Code Denies MT,DM,CVA,Lung disease,renal dise ase Colonoscopy in 2005 and [...]
== END 2025-07-21 11:38 | disposition home or self-care (01) ==
LOC: HO.HOS 11:18
PROVIDERS: PCP Internal Medicine; Visit Provider Orthopaedic Surgery
DX: M23.92 Unspecified internal derangement of left knee (principal)
CPT/HCPCS: 99213

== ENCOUNTER 2025-09-11 08:29 | Outpatient (AMB) | payer MEDICARE, BC, SELFPAY ==
[2025-09-11 08:46] VITALS: BP 136/72; PULSE 79; O2SAT 98; BMI 32.0
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
== END 2025-09-11 09:13 | disposition home or self-care (01) ==
LOC: HO.HMCH 08:29
PROVIDERS: PCP Internal Medicine; Visit Provider Internal Medicine
DX: E11.65 Type 2 diabetes mellitus with hyperglycemia (principal); I35.0 Nonrheumatic aortic (valve) stenosis; I10 Essential (primary) hypertension; E78.00 Pure hypercholesterolemia, unspecified; M85.80 Other specified disorders of bone density and structure, unspecified site; K76.0 Fatty (change of) liver, not elsewhere classified; N20.0 Calculus of kidney; N60.92 Unspecified benign mammary dysplasia of left breast; M23.92 Unspecified internal derangement of left knee; M65.30 Trigger finger, unspecified finger

== ENCOUNTER → 2025-09-11 08:29 | Outpatient (BNVA) | payer MEDICARE, BC, SELFPAY | PROVIDERS: PCP Internal Medicine; Visit Provider Internal Medicine | DX: E11.65 Type 2 diabetes mellitus with hyperglycemia (principal); I35.0 Nonrheumatic aortic (valve) stenosis; E78.00 Pure hypercholesterolemia, unspecified; I10 Essential (primary) hypertension; M85.80 Other specified disorders of bone density and structure, unspecified site; K76.0 Fatty (change of) liver, not elsewhere classified; N20.0 Calculus of kidney; N60.92 Unspecified benign mammary dysplasia of left breast; M65.30 Trigger finger, unspecified finger | CPT/HCPCS: 99212 ==

== ENCOUNTER 2025-09-15 10:55 | Outpatient (AMB) | payer MEDICARE, BC, SELFPAY ==
[2025-09-15 11:09] VITALS: BMI 32.0
--- NOTE | 2025-09-15 11:09 | MHC.OFFVIS ---
Vital Signs 09/15/25 11:09 Height 5 ft 2 in Weight 175 lb BMI 32.0 Intake Visit Reasons: OV: Worsening Left Knee Pain Intake Note: Saadia is a 70 year old female who presents today for a follow up of her Left Knee Patellofemoral OA. She reports progressivley worsening pain since her last visit. She has increased pain with ambulation. She was seen with her PCP who provided her with Meloxicam which has been mildly helpful. Allergies adhesive tape Allergy (Intermediate, Verified 09/11/25 08:46) Rash paper tape Allergy (Intermediate, Uncoded 09/11/25 08:46) Blister HPI HPI OV: Worsening Left Knee Pain: Details: Saadia is a 70 year old female who presents today for a follow up of her Left Knee Patellofemoral OA. She reports progressivley worsening pain since her last visit. She has increased pain with ambulation. She was seen with her PCP who provided her with Meloxicam which has been mildly helpful. She states her left knee has been worsening however. It is more of an ache than anything but she never had it before. X-rays and MRI were really unremarkable. She denies numbness tingling. She states there is some aching that extends of the lateral portion of her leg. She has no groin pain. She is concerned because she is going on vacation soon and wants to be healthy and without knee pain. [facility] Medical History Impaired glucose tolerance Abnormal mammogram of left breast Elevated LFTs Postmenopausal Atypical lobular hyperplasia of left breast Hyperglycemia Murmur Situational anxiety Hyperlipidemia Chronic back pain Postmenopausal Annual physical exam Hypertension Aortic stenosis Surgical History History of lumpectomy of left breast S/P lumpectomy, left breast (03/02/22) Hx of repair of rotator cuff H/O colonoscopy History of back surgery Hx of tonsillectomy Family History Mother CVD (cardiovascular disease) Breast cancer, Onset Age: 60 Father Parkinson disease Brother Prostate cancer Sister Breast cancer, Onset Age: 50 Social History Household Members: Spouse Housing: House Are you a primary medicare specialist to a significant other at home: No Do you presently have visiting nurse or other home services: No Alcohol intake: never Patient Tobacco Use Status: Never used Tobacco Tobacco use type: Cigarette e-Cigarette/Vaping Use: Never Used Second Hand Smoke Exposure: No service: No Current occupational status: retired Cognitive needs: No Hearing needs: No Vision needs: Yes Female Reproductive History Menstrual Age of Menarche: 14 Physical Exam Exam Exam: Pleasant woman in no acute distress Left knee with mild medial tenderness to palpation especially posteromedial. Negative Jon's. Full range of motion. Vital Signs: BMI result Body Mass Index 32.0 Office Procedures Joint Inj/Aspir; Non-Pain Clin Joint Injection/Drain Details: Injected 1 mL of Decadron and 3 mL 1% lidocaine and 3 mL of 0.25% Marcaine. Site was prepped using aseptic technique. Patient tolerated the procedure well. Shoulders, Hips, Knees, Knee Large Joint Injection : Left Knee Coding Procedure code (CPT) selection complete Assessment & Plan Assessment & Plan (1) Osteoarthritis of left knee: Code(s): M17.12 - Unilateral primary osteoarthritis, left knee Category: Medical Plan: Pain likely from mild OA. MRI relatively normal with some mild degenerative changes. I injected her left knee today. If this is unhelpful she will let me know. If it is we can inject again before she goes to [facility] in November Coding Level of Care Code Est Pt Level 3 (96837) Diagnoses Osteoarthritis of left knee M17.12 CPT Codes Shoulders, Hips, Knees, - Knee Large Joint Injection : Left Knee ([id number])
--- OUTSIDE RECORDS SUMMARY | 2025-09-15 14:03 | XMS_ITS | Clinical Summary ---
Author Organization [facility] Address [address] [place] [address] Care Team Providers Care Juke Box Servicer Name Role Phone Unavailable Primary Care Provider [...] - 2023-2 5 season) 2025 RSV Vaccine 50 years and old er and Patients (1 - 1-dose 75+ series) 2028 Hepatitis B Vaccines Aged Out No long er eligible based on patient's age to complete this topic
== END 2025-09-15 12:13 | disposition home or self-care (01) ==
LOC: HO.HOS 10:56
PROVIDERS: PCP Internal Medicine; Visit Provider Orthopaedic Surgery
DX: M17.12 Unilateral primary osteoarthritis, left knee (principal)
CPT/HCPCS: 20610; 99213

== ENCOUNTER → 2025-09-15 10:55 | Outpatient (BNVA) | payer MEDICARE, BC, SELFPAY | PROVIDERS: PCP Internal Medicine; Visit Provider Orthopaedic Surgery | DX: M17.12 Unilateral primary osteoarthritis, left knee (principal) | CPT/HCPCS: 20610; 99212; J0665; J1100; J2003 ==

== ENCOUNTER 2025-10-06 11:56 | Outpatient (REF) | payer MEDICARE, BC, SELFPAY ==
--- NOTE | ~2025-10-06 | US_ITS ---
EXAMINATION: US RETROPERITONEAL LIMITED (RENAL ONLY) CLINICAL INFORMATION: N 20.0. Calculus of kidney.. COMPARISON: Correlated to ultrasound abdomen dated May 24, 2022. TECHNIQUE: Real-time ultrasound kidneys using grayscale technique. FINDINGS: RIGHT KIDNEY: 11 x 4 x 6 cm (SAG x AP x TRV). Volume: 140 cc. Normal echotexture. Renal cortical thickness is normal. No hydronephrosis. No solid or cystic lesion. LEFT KIDNEY: 10 x 5 x 5 cm (SAG x AP x TRV). Volume: 131 cc. Normal echotexture. Renal cortical thickness is normal. No hydronephrosis. No solid or cystic lesion. US/US renal BI IMPRESSION: No hydronephrosis or gross nephrolithiasis.. Electronically signed by: Wily Rashid MD 10/06/2025 01:04 PM EST
== END 2025-10-06 11:57 | disposition home or self-care (01) ==
LOC: HO.US 11:56
PROVIDERS: PCP Internal Medicine; Visit Provider Internal Medicine
DX: N20.0 Calculus of kidney (principal)
CPT/HCPCS: 76775

== ENCOUNTER → 2025-10-06 11:58 | Outpatient (BNV) | payer MEDICARE, BC, SELFPAY | PROVIDERS: PCP Internal Medicine; Visit Provider Radiology Diagnostic Radiology | DX: N20.0 Calculus of kidney (principal) | CPT/HCPCS: 76775 ==